=== PATIENT | female | born 1975 | race Two or more races ===

== ENCOUNTER 2023-02-18 12:53 | Outpatient (AMB) | payer MEDICAID, SELFPAY ==
--- NOTE | 2023-02-18 13:04 | MHC.OFFVIS ---
Intake Vital Signs 02/18/23 13:06 Height 4 ft 11 in Weight 119 lb 14.903 oz BMI 24.2 BP 90/66 Blood Pressure Location Lt brachial Position Sitting Pulse 99 Intake Visit Reasons: STAT NPV/Chest Pain/Hoffman Severo Intake Note: NPV w/ EKG Conformal Pad Former Required: No Accompanied by: Mother Allergies No Known Allergies Allergy (Verified 02/18/23 13:08) Medication List - Last Reconciled 02/18/23 by Jose Vora MD albuterol sulfate 90 mcg/actuation (Ventolin HFA) 2 puffs inhalation Q4H PRN buspirone 15 mg PO BID dtinjniwdp-muiecyjzmqrcz-ijww 50-325-40 mg 1 tab PO Q4H cetirizine 10 mg PO QAM cyclobenzaprine 10 mg PO DAILY PRN fluoxetine mg PO fluticasone propion-salmeterol 115-21 mcg/actuation (Advair HFA) 2 puffs inhalation gabapentin 600 mg PO TID levothyroxine 25 mcg PO QAM meloxicam 7.5 mg PO DAILY ondansetron 4 mg PO Q8H PRN psyllium husk (aspartame) 3 gram/5.8 gram (Reguloid (aspartame)) ea PO QAM quetiapine 800 mg PO BEDTIME trazodone 100 mg PO BEDTIME HPI HPI Comments History of Present Illness Details Cristel is here for consultation regarding chest pain. She states that she is slow in [place] but has moved to the local area. Comes here with her family. Multiple comorbidities including bipolar disorder, asthma, constipation, GERD, migraine headache among others. She also has history of cocaine use in the last time was few months back. She states she gets pain in the epigastric/lower chest area on the left side. Off and on. No specific provoking or relieving factors. In the PCP note, there is also mention of chest discomfort radiating to left arm. Unclear if it is related to cocaine as patient can not say. Otherwise, no documented coronary disease. However, patient states that she was in [facility] in [place] apparently she was told that she had 'clogged arteries' supplying her belly. Not sure what she means. We need to get records. [facility] Medical History GI bleed Bipolar 1 disorder Hypothyroid Cocaine abuse Smoking Surgical History (Updated 02/18/23 @ 13:12 by Luana Elkins) Hx of tubal ligation Hx of cholecystectomy Family History (Updated 02/18/23 @ 13:13 by Luana Elkins) Maternal Grandmother Heart problem Mother HTN (hypertension) Heart problem Father Heart problem Social History (Updated 02/18/23 @ 13:14 by Luana Elkins) Alcohol intake: current Alcohol intake frequency: holidays/special occasions only Patient Tobacco Use Status: Current everyday Tobacco user Tobacco use type: Cigarette Cigarettes Per Day: 10 Review of Systems Const Denies chills, Denies daytime sleepiness, Denies fatigue, Denies fever(s), Denies frequent falls, Denies night sweats, Denies snoring, Denies weakness, Denies weight gain and Denies weight loss Eyes Denies loss of vision ENT Denies dizziness and Denies hearing loss Card Denies chest pain, Denies chest pain with activity, Denies syncope, Denies rapid heart rate, Denies edema, Denies claudication, Denies leg edema, Denies lightheadedness, Denies palpitations, Denies dyspnea, Denies dyspnea on exertion and Denies orthopnea Resp Denies cough, Denies excessive phlegm production, Denies dyspnea, Denies dyspnea on exertion, Denies snoring and Denies wheezing GI Denies abdominal pain, Denies hematochezia, Denies change in bowel habits, Denies change in stool character, Denies heartburn, Denies nausea and Denies vomiting Denies hematuria, Denies urinary frequency and Denies dysuria Musc Denies arthralgias, Denies muscle weakness, Denies numbness and Denies tingling Skin/Breast Denies nail changes and Denies rash Neuro Denies Abnormal speech present, Denies dizziness, Denies syncope, Denies frequent falls, Denies loss of vision, Denies memory loss, Denies numbness, Denies tingling and Denies weakness Psych Denies depression and Denies memory loss Endo Denies fatigue and Denies palpitations Aller/Immun Denies wheezing Physical Exam Vital Signs: Last Vital Signs Pulse 99 02/18/23 13:06 BP 90/66 02/18/23 13:06 BMI result Body Mass Index 24.2 Const General: comfortable and no acute distress Orientation/consciousness: patient oriented x3 HEENT Other: Unremarkable Head: Yes normal to inspection Neck Neck: Yes normal visual inspection Chest Chest palpation & inspection: normal inspection of the chest Resp Auscultation: clear to auscultation bilaterally Cardio Palpation: normal PMI Heart sounds: S1 normal heart sound present, S2 normal heart sound present, no gallops, no murmurs and no rubs GI Palpation (GI): Soft to palpation Back/Spine/Pelvis Other: unremarkable Skin General skin exam: no rashes or lesions noted Neuro General: patient oriented x3 Speech: No Abnormal speech present Extrem General: Yes normal to inspection Psych Mental Status: mental status grossly normal Assessment & Plan Assessment & Plan (1) Precordial chest pain: Code(s): R07.2 - Precordial pain (2) Smoking: Code(s): F17.200 - Nicotine dependence, unspecified, uncomplicated (3) Cocaine abuse: Code(s): F14.10 - Cocaine abuse, uncomplicated Plan Atypical sounding symptoms but she has numerous factors including long history of smoking as well as history of cocaine use. Will obtain an echocardiogram and exercise stress perfusion myocardial imaging. Will also request records from [place]- signed release. Plan discussed with patient as well as family. Advised her to quit smoking but she states she cannot do so as that is what calms her mind apparently. Hence, may not quit. Absence from cocaine. We can get the testing done and then see her back. Orders: Orders CA echo transthoracic complete Today R07.2 - Precordial pain NM cardiolite stress test Today R07.2 - Precordial pain CA stress test Today R07.2 - Precordial pain Coding Level of Care Code New Pt Level 4 (35557) Diagnoses Precordial chest pain R07.2 Smoking F17.200 Cocaine abuse F14.10
[2023-02-18 13:06] VITALS: BP 90/66; PULSE 99; BMI 24.2
== END 2023-02-18 13:30 | disposition home or self-care (01) ==
PROVIDERS: PCP Student in an Organized Health Care Education/Training Program; Referring Provider Student in an Organized Health Care Education/Training Program; Visit Provider Internal Medicine
DX: R07.2 Precordial pain (principal); F17.200 Nicotine dependence, unspecified, uncomplicated; F14.10 Cocaine abuse, uncomplicated
CPT/HCPCS: 99204

== ENCOUNTER → 2023-02-18 12:53 | Outpatient (BNVA) | payer MEDICAID, SELFPAY | PROVIDERS: PCP Student in an Organized Health Care Education/Training Program; Referring Provider Student in an Organized Health Care Education/Training Program; Visit Provider Internal Medicine | DX: R07.2 Precordial pain (principal); F14.10 Cocaine abuse, uncomplicated; F17.210 Nicotine dependence, cigarettes, uncomplicated | CPT/HCPCS: 99202 ==

== ENCOUNTER 2023-02-24 14:21 | Outpatient (REF) | payer MEDICAID, SELFPAY ==
[2023-02-24 17:07] LABS: Alanine Aminotransferase 9 U/L (0-31); Albumin Level 4.5 g/dL (3.5-5.0); Alkaline Phosphatase 128 U/L (39-117); Anion Gap 12 (12-20); Aspartate Amino Transferase 14 U/L (5-31); Bilirubin Total 0.2 mg/dL (0.0-1.0); Blood Urea Nitrogen 15 mg/dL (9-16); Calcium 9.8 mg/dL (8.4-10.2); Carbon Dioxide 25 mmol/L (22-29); Chloride 107 mmol/L (96-108); Estimated Glomerular Filt Rate > 60; Gamma Glutamyl Transpeptidase 49 U/L (7-33); Glucose Random 89 mg/dL (60-115); Potassium 4.4 mmol/L (3.3-5.1); Sodium 140 mmol/L (135-145); Total Protein 7.4 g/dL (6.5-8.0)
[2023-02-24 17:17] LABS: TSH reflex Free T4 0.62 uIU/mL (0.32-4.0)
[2023-02-24 17:30] LABS: Folate 8.1 ng/mL (> or = 4.0); Vitamin B12 522 pg/mL (200-900)
[2023-02-24 17:48] LABS: Appearance Urine Clear; Color Urine Yellow; Glucose Urine UA Negative (Negative); Leukocyte Esterase Urine Negative (Negative); Nitrite Urine Negative (Negative); UMIC TRIGGER UA YES; Urine Blood Trace (Negative); Urine Ketones Negative (Negative); Urine Protein Negative (Neg-Trace)
[2023-02-24 17:51] LABS: Bacteria Urine Trace (None Seen); Hyaline Casts Urine 0-2 /LPF (0-2); RBC Urine 0-2 /HPF (0-2); Squamous Epithelial Cell Urine 0-2 /HPF (0-2); WBC Urine 0-5 /HPF (0-5)
[2023-02-24 18:19] LABS: Creatinine Urine 60.96 mg/dL; Microalbumin Urine < 5.0 mg/L
[2023-02-24 22:02] LABS: Amphetamine Screen Urine Not Detected (Not Detect); Barbiturates, Urine Not Detected (Not Detect); Benzodiazepines Screen Urine Not Detected (Not Detect); Cannabinoid Screen Urine Not Detected (Not Detect); Cocaine Screen Urine POSITIVE (Not Detect); Fentanyl, urine Not Detected (Not Detect); Opiate Screen Urine Not Detected (Not Detect); Phencyclidine Screen Urine Not Detected (Not Detect)
[2023-02-25 04:55] LABS: CT PCR NOT DETECTED (Not Detect.); NG PCR NOT DETECTED (Not Detect.)
== END 2023-02-24 14:22 | disposition home or self-care (01) ==
LOC: HO.HHCL 14:21
PROVIDERS: Visit Provider Student in an Organized Health Care Education/Training Program
DX: Z00.00 Encounter for general adult medical examination without abnormal findings (principal); R74.8 Abnormal levels of other serum enzymes; F14.90 Cocaine use, unspecified, uncomplicated; Z20.2 Contact with and (suspected) exposure to infections with a predominantly sexual mode of transmission
CPT/HCPCS: 0353U; 80053; 80307; 81001; 82570; 82607; 82746; 82977; 84443

== ENCOUNTER 2023-02-25 09:27 | Outpatient (REF) | payer MEDICAID, SELFPAY ==
--- NOTE | ~2023-02-25 | XR_ITS ---
EXAMINATION: XR KNEE, RIGHT XR TIBIA AND FIBULA, RIGHT CLINICAL INFORMATION: Pain. COMPARISON: None available. TECHNIQUE: AP, lateral and tunnel views of the right knee were obtained. AP and lateral views of the right tibia and fibula were obtained. FINDINGS: Bony alignment and mineralization are normal. The lateral, medial and patellofemoral joint space compartments of the right knee are well-maintained. No right knee fracture, dislocation or joint effusion is seen. An intramedullary alexandr is seen applied to the right tibia, with intact superior fixator screws. No hardware failure or loosening is seen. There are old, healed distal tibial and fibular fractures, with bony remodeling. There is no acute fracture or dislocation. The ankle mortise is intact. XR/XR knee RT 3V IMPRESSION: Healed posttraumatic and postoperative changes are seen of the right tibia and fibula, as detailed. No fracture or dislocation is seen. There is no right knee joint effusion. The joint spaces of the right knee and ankle are well-maintained.
--- NOTE | ~2023-02-25 | XR_ITS ---
EXAMINATION: XR KNEE, RIGHT XR TIBIA AND FIBULA, RIGHT CLINICAL INFORMATION: Pain. COMPARISON: None available. TECHNIQUE: AP, lateral and tunnel views of the right knee were obtained. AP and lateral views of the right tibia and fibula were obtained. FINDINGS: Bony alignment and mineralization are normal. The lateral, medial and patellofemoral joint space compartments of the right knee are well-maintained. No right knee fracture, dislocation or joint effusion is seen. An intramedullary alexandr is seen applied to the right tibia, with intact superior fixator screws. No hardware failure or loosening is seen. There are old, healed distal tibial and fibular fractures, with bony remodeling. There is no acute fracture or dislocation. The ankle mortise is intact. XR/XR tibia fibula RT 2V IMPRESSION: Healed posttraumatic and postoperative changes are seen of the right tibia and fibula, as detailed. No fracture or dislocation is seen. There is no right knee joint effusion. The joint spaces of the right knee and ankle are well-maintained.
--- NOTE | ~2023-02-25 | XR_ITS ---
EXAMINATION: XR SACRUM AND COCCYX CLINICAL INFORMATION: Coccygeal pain. COMPARISON: None available. TECHNIQUE: 3 frontal and lateral views of the sacrum and coccyx were obtained. FINDINGS: There are no fractures. No bone, joint or soft tissue abnormality is demonstrated. XR/XR sacrum coccyx min 2V IMPRESSION: Unremarkable examination.
== END 2023-02-25 09:28 | disposition home or self-care (01) ==
LOC: HO.HHCX 09:27
PROVIDERS: Visit Provider Student in an Organized Health Care Education/Training Program
DX: M79.604 Pain in right leg (principal); M53.3 Sacrococcygeal disorders, not elsewhere classified
CPT/HCPCS: 72220; 73562; 73590

== ENCOUNTER 2023-04-02 16:11 | Outpatient (REF) | payer MEDICAID, SELFPAY ==
[2023-04-02 16:24] LABS: Appearance Urine Clear; Color Urine Yellow; Glucose Urine UA Negative (Negative); Leukocyte Esterase Urine Negative (Negative); Nitrite Urine Negative (Negative); Specific Gravity - Urine 1.015 (1.005-1.025); Urine Blood Negative (Negative); Urine Ketones Negative (Negative); Urine Protein Negative (Neg-Trace)
[2023-04-03 03:43] LABS: CT PCR NOT DETECTED (Not Detect.); NG PCR NOT DETECTED (Not Detect.)
[2023-04-03 11:57] LABS: BV Int Neg Control Negative (Negative); BV Int Pos Control Positive (Positive)
== END 2023-04-02 16:12 | disposition home or self-care (01) ==
LOC: HO.HHCLNP 16:11
PROVIDERS: Visit Provider Student in an Organized Health Care Education/Training Program
DX: R30.0 Dysuria (principal)
CPT/HCPCS: 0353U; 81003; 87480; 87510; 87660

== ENCOUNTER 2023-04-05 | Outpatient (REF) | payer MEDICAID, SELFPAY ==
[2023-04-07 20:37] LABS: HPV mRNA E6/E7 rflx Not Detected (Not Detected)
== END 2023-04-05 00:01 | disposition home or self-care (01) ==
LOC: HO.HHCLNP
PROVIDERS: Visit Provider Advanced Practice Midwife
DX: Z12.4 Encounter for screening for malignant neoplasm of cervix (principal); Z11.51 Encounter for screening for human papillomavirus (HPV)
CPT/HCPCS: 87624; 88142

== ENCOUNTER 2023-04-07 10:20 | Outpatient (AMB) | payer MEDICAID, SELFPAY ==
[2023-04-07 10:35] VITALS: BP 96/58; PULSE 96; O2SAT 99; BMI 24.0
--- NOTE | 2023-04-07 10:35 | A.OFFVIS_ITS ---
Intake Vital Signs 04/07/23 10:35 Height 4 ft 11 in Weight 119 lb 0.794 oz BMI 24.0 BP 96/58 L Blood Pressure Location Lt brachial Position Sitting Pulse 96 Pulse Source Doppler Pulse Oximetry (%) 99 Oxygen Delivery Method Room Air Intake Visit Reasons: copd Allergies No Known Allergies Allergy (Verified 04/07/23 10:40) HPI copd HPI Details 47-year-old lady, active 20 pack-year smoker with underlying history of asthma referred for pulmonary evaluation. Patient states that she has been using Advair 115 and albuterol MDI with suboptimal control of her symptoms. She denies recent pulmonary function or allergy testing. Patient does have family history of asthma in her mother. She does complain of multiple environmental allergies. PFS Medical History GI bleed Bipolar 1 disorder Hypothyroid Cocaine abuse Smoking Surgical History (Updated 02/18/23 @ 13:12 by Luana Elkins) Hx of tubal ligation Hx of cholecystectomy Family History (Updated 02/18/23 @ 13:13 by Luana Elkins) Maternal Grandmother Heart problem Mother HTN (hypertension) Heart problem Father Heart problem Social History (Updated 04/07/23 @ 10:41 by Drea Juares [facility]) Alcohol intake: current Alcohol intake frequency: holidays/special occasions only Patient Tobacco Use Status: Current everyday Tobacco user Tobacco use type: Cigarette Cigarettes Per Day: 10 Years Smoked: 20+ Review of Systems Const Denies daytime sleepiness, Denies excessive sweating, Denies fatigue, Denies fever(s), Denies lethargy, Denies malaise, Denies night sweats, Denies snoring and Denies weight loss Eyes Denies blurry vision and Denies itchy eyes ENT Denies nasal congestion, Denies post nasal drip, Denies sinus pain, Denies sinus pressure and Denies other ( Thrush) Card Denies chest pain, Denies pedal edema, Denies dyspnea, Denies orthopnea and Denies paroxysmal nocturnal dyspnea Resp Denies cough, Denies hemoptysis, Denies excessive phlegm production, Denies dyspnea, Denies snoring and Denies wheezing GI Denies abdominal pain and Denies heartburn Musc Denies myalgias, Denies arthralgias and Denies joint swelling Skin/Breast Denies rash Neuro Denies memory loss and Denies seizure-like activity Psych Denies abnormal sleep pattern, Denies anxiety and Denies memory loss Endo Denies excessive sweating, Denies fatigue and Denies heat intolerance Ian/Lymph Denies easy bruising Aller/Immun Denies itchy eyes, Denies seasonal rhinorrhea and Denies wheezing Physical Exam Vital Signs: Last Vital Signs Pulse 96 04/07/23 10:35 BP 96/58 L 04/07/23 10:35 Pulse Ox 99 04/07/23 10:35 Oxygen Delivery Method Room Air 04/07/23 10:35 BMI result Body Mass Index 24.0 Const General: no acute distress and alert Nutritional Appearance: not obese Orientation/consciousness: Other orientation findings ( oriented) HEENT Head: Yes atraumatic Eyes General: appearance normal, both eyes and all related structures Sclerae: sclerae normal EOM: EOMs intact bilaterally Neck Neck: Yes supple Lymphatic: no lymphadenopathy noted Resp Effort & Inspection: normal respiratory effort and no use of accessory muscles Auscultation: clear to auscultation bilaterally Cardio Rate: regular rate Rhythm: regular rhythm Heart sounds: no gallops, no murmurs and no rubs Skin General skin exam: other ( warm) Extrem General: No clubbing, No cyanosis and No edema Assessment & Plan Assessment & Plan (1) Asthma: Code(s): J45.909 - Unspecified asthma, uncomplicated Plan: Underlying asthma of unclear severity suboptimally controlled on Advair, will switch to Trelegy and obtain full PFT. (2) Environmental allergies: Code(s): Z91.09 - Other allergy status, other than to drugs and biological substances Plan: Will obtain IgE level, CBC with differential, and RAST panel for further evaluation. Orders: Orders PFT pulmonary function test Today J45.909 - Unspecified asthma, uncomplicated Complete Blood Count Auto Diff Today Z91.09 - Other allergy status, other than to drugs and biological substances Rast Allergen Today Z91.09 - Other allergy status, other than to drugs and biological substances Medications: New uachmljkpca-tgzzevpkh-iqajudlk 200-62.5-25 mcg (Trelegy Ellipta) 1 inh inhalation DAILY 1 ea 6RF 30 days J45.909 - Unspecified asthma, uncomplicated Coding Level of Care Code New Pt Level 4 (67660) Diagnoses Asthma J45.909 Environmental allergies Z91.09
== END 2023-04-07 10:56 | disposition home or self-care (01) ==
PROVIDERS: PCP Student in an Organized Health Care Education/Training Program; Referring Provider Student in an Organized Health Care Education/Training Program; Visit Provider Internal Medicine Pulmonary Disease
DX: J45.909 Unspecified asthma, uncomplicated (principal); Z91.09 Other allergy status, other than to drugs and biological substances
CPT/HCPCS: 99204

== ENCOUNTER → 2023-04-07 10:20 | Outpatient (BNVA) | payer MEDICAID, SELFPAY | PROVIDERS: PCP Student in an Organized Health Care Education/Training Program; Visit Provider Internal Medicine Pulmonary Disease ==

== ENCOUNTER 2024-12-27 12:14 | Outpatient (REF) | payer MEDICAID, SELFPAY ==
--- OUTSIDE RECORDS SUMMARY | 2024-12-27 13:14 | XMS_ITS | Encounter Summary ---
Author Organization [employer] Address [address] [place] [address] [address] [place] [address] Care Team Providers Care Ceramic Tile Setter Name Role Phone Airam Romero MD Primary Care Pro vider Fred Dotson Unavailable Unavailable Reason for Visit * Reason Onset Date Comments Call Back Request 04/26/2023 Encounter Details Date Type Department Care Team ([facility] Contact Info) Description 04/26/2023 Telephone [facility] MEDICINE [address], [place] [id number] Airam Romero MD [address] [place] [address] Call Back Request Social History Tobacco Use Types Packs/Day Years Used Date Smoking Tobacco: Every Day Cigarettes 0.5 20 Passive Smoke Exposure: Current Smokeless Tobacco: Never Comments:Started tobacco smo shanon 16 y of age until now ---1/2 PQT A day -smoking for 31 years --calc PQT a year 15.5 Alcohol Use Standard Drinks/Week Comments Not Currently 0 (1 standard drink = 0.6 oz pur e alcohol) Depression Answer Date Recorded Patient Health Questionnaire-9 Score 10 04/15/2023 Patient Health Questionnaire-9 Score 10 04/15/2023 Last PHQ-9: Questionnaire Data Not on file 1 06/15/2022 Housing Stability Answer Date Recorded What is your housing situation today? I have carlos fernando 03/29/[address] you li ve. Do you have problems with any of the following? None of the above 03/29/2023 Food Insecurity Answer Date Recorded Within the past 12 months, y ou worried that your food would run out before you got money to buy more: Never True 03/29/2023 Within the past 12 months,th e food you bought just didn't last and you didn't have enough money to get more: Never True Transportation Answer Date Recorded In the past 12 months, has l ack of transportation kept you from medical appts, meetings, work or from getting things needed for daily living? No 03/29/2023 Utilities Answer Date Recorded In the past 12 months, has t he electric, gas, oil or water company threatened to shut off services in your home? No 03/29/2023 Depression Answer Date Recorded Patient Health Questionnaire-2 Score 6 04/15/2023 Comments No Sex and Gender Information Value Date Recorded Sex Assigned at Female 10/19/2022 1:50 PM EDT Legal Sex Female 1:41 PM EDT Gender Identity Female 10/19/2022 1:50 PM EDT Sexual Orientation Straight 12/02/2022 9: 43 AM EDT documented as of this encounter Miscellaneous Notes * Telephone Encounter - Katherine Smith - 04/26/2023 2:20 PM EST Tc from [facility] requesting more clarification on DX for MRI to pelvis. Pt is scheduled an appointment for tomorrow (04/27) Please contact [facility] at [phone] documented in this encounter Plan of Treatment Upcoming Encounters Date Type Department Care Team (Late st Contact Info) Description 02/26/2025 1:15 PM EDT Office Visit [facility] MEDICINE [address] [place] [id number] Airam Romero MD [address] [place] [address] documented as of this encounter Goals Goal Patient Goal Type Associated Problems Recent Progress Patient-Stated? Author Patient will adhere to medication regimen General No Rosy Nunes Keep your medical appointments Lifestyle No Rosy Nunes documented as of this encounter Visit Diagnoses Not on filedocumented in this encounter Additional Health Concerns Assessment Noted Time PHQ-9 Depression Total Score: 10 023 3:57 PM EDT documented as of this encounter Care Teams Ceramic Tile Setter Relationship Specialty Start Date End Date Airam Romero MD [address] [place] [address] PCP - General Internal Medicine 12/16/22 Fred Dotson FNP [address] [place] [address] Nurse Practitioner Family Medicine 05/10/23 documented as of this encounter
--- OUTSIDE RECORDS SUMMARY | 2024-12-27 13:14 | XMS_ITS | Patient Health Record ---
Author Organization [facility] [place] Address [address] [place] [address] Care Team Providers Care Flea Market Seller Name Role Phone SARAH ORTIZ Unavailable [phone] Reason For Referral No Information Medications Medication SIG (Take, Route, Frequency, Duration) Notes Start Date End Date Status Omeprazole 40 MG 1 capsule Orally Onc e a day; Duration: 30 day(s) 02/07/2018 Active OneTouch Verio w/Device as it comes In V itro DIRECTED; Duration: 90 days Active oxyCODONE-Acetaminophen 10-325 MG 1 tablet as needed Orally every 6 hrs Not-Taking Levothyroxine Sodium 50 MCG 1 tablet on an empty stomach in the morning Orally Once a day; Duration: 30 day(s) 01/10/2018 Active Gabapentin 600 MG 1 tablet Orally Once a day; Duration: 90 days Active ALPRAZolam 2 MG 1 tablet Orally Twic e a day Not-Taking QUEtiapine Fumarate 400 MG Oral; Duration: 030 Active OLANZapine 10 MG Oral; Duration: 030 Active Medrol 4 MG 1 tab Orally DAILY; Duration: 30 day(s) Active metFORMIN HCl ER 500 MG 1 tab Orally BID ; Duration: 90 days Active TRUEplus Lancets 28G - ; Duration: 90 days Active glipiZIDE XL 10 MG 1 tablet Orally Once a day; Duration: 90 days Active Social History Tobacco Use: Social History Observation Description Date Details (start date - stop date) Current Smoker NA - NA Tobacco Use/Smoking Question Answer Notes Are you a current smoker How often do you smoke cigarettes? every day How many cigarettes a day do you smoke? 6-10 How soon after you wake up do you smoke your fir st cigarette? 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) Active confirmed Problem Mixed hyperlipidemia (722755040) Mixed hyperlipidemia (E78.2) Active confirmed Problem Tobacco user (998804766) Nicotine dependence, cigarettes, uncomplicated (F17.210) Active confirmed Problem Insomnia (109809084) Insomnia, unspecified (G47.00) Active confirmed Problem Insomnia (167419184) Insomnia due to medical condition (G47.01) Active confirmed Problem Essential hypertension (36342763) Essential (primary) hypertension (I10) Active confirmed Problem Acute upper respiratory infection (19190116) Acute upper respiratory infection, unspecified (J06.9) Active confirmed Problem Acute severe exacerbation of mild persistent asthma (disorder) (753604937) Mild persistent asthma with status asthmaticus (J45.32) Active confirmed Problem Cough (97056313) Cough (R05) Active confirmed Problem Adult health examination (861555647) Encounter for general adult medical examination without abnormal findings (Z00.00) Active confirmed Plan Of Treatment Pending Test Test Name Order Date Chest X-ray PA and lateral 04/05/2018 Chest X-ray PA and lateral 02/07/2018 MAMMOGRAM, SCREENING 12/09/2017 Comp. Metabolic Panel (14) 12/28/2017 TSH+Free T4 12/28/2017 Lipid Panel With LDL/HDL Ratio 8 UA/M w/rflx Culture, Routine 12/28/2017 CBC With Differential/Platelet 8 Hemoglobin A1c 12/28/2017 A IM 1GM ROCEPHIN 04/05/2018 A-DEXAMETHASONE 10mg/1ml 04/05/2018 INJECTION DEXAMETHOSONE SODIUM PHOSPHATE 01/10/2018 A- INJECTION KETOROLAC TROMETHAMINE PER 15 04/05/2018 A- INJECTION KETOROLAC TROMETHAMINE PER 15 01/10/2018 Future Test Test Name Order Date Lipid Panel With LDL/HDL Ratio 9 TSH+Free T4 07/13/2018 Insurance Providers Payer Name Payer Address Payer Phone Subscriber Number Group Number Insured Name Patient Relationship to Insured Coverage Start Date Coverage End Date [facility] [address] [address] [place] [address] [phone] [id number] Cristel Lepe Self - patient is the insured Medical (General) History Medical History History ICD Code diabetes, type II asthma arthritis insonmia Surgical History Surgery Date(Month/Year) Galbladder tonsillectomy tubal ligation 2007
--- OUTSIDE RECORDS SUMMARY | 2024-12-27 13:15 | XMS_ITS | Patient Health Record ---
Author Organization [facility] Billing Info Address [address] [place], [place] [address] [address] Care Team Providers Care Cut Out Worker Name Role Phone DR CHRISTIANO AUGUSTINE JR Primary Care Provider Unavailable Reason For Referral No Information Medications Medication SIG (Take, Route, Fr equency, Duration) Notes Start Date End Date Status Rozerem 8 MG 1 tablet at bedtime as needed Orally Once a day Active Gabapentin 600 MG 1 tablet Orally Thre e times a day for 30 day(s) Active Seroquel 400 MG 1 tablet at bedtime Orally Once a day for 30 day(s) Active Fioricet 50-300-40 MG 1 capsule as neede d Orally every 4 hrs Active Tramadol HCl 50 MG 1 tablet as needed O rally every 6 hrs Active Problems Problem Type SNOMED Code ICD Code Onset Dates Problem Status W/U Status Risk Notes Problem Venereal disease screening (435897146) Screening for STD (sexually transmitted disease) (V74.5) Active confirmed Problem Routine gynecologic examination done (98634633484419) Visit for routine helper [employer] exam (V72.31) Active confirmed Plan Of Treatment Pending Test Test Name Order Date RPR ([id number]) 08/08/2013 HBsAg Screen ([id number]) 08/08/2013 HIV 1/0/2 ANTIBODY W/ REFLEX TO NUCLEIC ACID TESTING([id number]) 08/08/2013 HCV Ab w/Rflx to RIBA ([id number]) 014 HSV 1 and 2-Specific Ab, IgG ([id number]) 08/08/2013 HSV 1 and 2 IgM Abs, Indirect ([id number]) 08/08/2013 Insurance Providers Payer Name Payer Address Payer Phone Subscriber Number Group Number Insured Name Patient Relationship to Insured Coverage Start Date Coverage End Date [facility] [employer] [address] [place], [place] [id number], [place] [id number] Mango Cristel Self - patient is the insured 5 [phone] Medical (General) History Medical History History ICD Code ASTHMA THYROID DYSFUNCTION DEPRESSION Surgical History Surgery Date(Month/Year) cholecystectomy tubal ligation
[2024-12-27 13:48] LABS: MANUAL DIFF FLAG NO
[2024-12-27 13:55] LABS: Hematocrit 37.8 % (37.0-47.0); Hemoglobin 12.2 g/dl (12.0-16.0); Imm Gran Abs Auto 0.03 X10*3/uL (0.00-0.03); Imm Gran Pct Auto 0.4 % (0.0-0.4); Lymphocytes Absolute Auto 2.0 X10*3/uL (1.2-4.9); Mean Corpuscular HGB Conc 32.3 g/dl (31.0-35.0); Mean Corpuscular Hemoglobin 31.8 pg (27.0-33.0); Mean Corpuscular Volume 98.4 fL (80.0-98.0); NRBC Abs Auto 0.000 X10*3/uL (0.0-0.012); NRBC Pct Auto 0.0 /100WBC (0.0-0.2); Platelet Count 279 X10*3/uL (160-400); Red Blood Count 3.84 X10*6/uL (4.20-5.50); White Blood Count 7.6 X10*3/uL (4.8-10.8)
[2024-12-27 14:47] LABS: Anion Gap 13 (12-20); Blood Urea Nitrogen 18 mg/dL (9-16); Calcium 9.5 mg/dL (8.4-10.2); Carbon Dioxide 25 mmol/L (22-29); Chloride 108 mmol/L (96-108); Estimated Glomerular Filt Rate > 60; Ferritin 39 ng/mL (10-250); Iron 25 mcg/dL (30-160); Magnesium 2.0 mg/dL (1.6-2.6); Percent Iron Saturation 10 % (15-50); Potassium 4.0 mmol/L (3.3-5.1); Sodium 142 mmol/L (135-145); Total Iron Binding Capacity 260 mcg/dL (228-428); Unsaturated Iron Binding 235 ug/dL
== END 2024-12-27 12:15 | disposition home or self-care (01) ==
LOC: HO.HHCL 12:14
PROVIDERS: PCP Student in an Organized Health Care Education/Training Program; Visit Provider Nurse Practitioner
DX: R20.0 Anesthesia of skin (principal); R20.2 Paresthesia of skin
CPT/HCPCS: 36415; 80048; 82728; 83540; 83735; 85025

== ENCOUNTER 2025-05-29 13:03 | Outpatient (REF) | payer MEDICAID, SELFPAY ==
--- OUTSIDE RECORDS SUMMARY | 2024-08-26 04:00 | XMS_ITS ---
Author Organization [facility] Primary Care Address [address] [place] [address] Care Team Providers Care Seam Checker Name Role Phone Not Selected, Physician Unavailable Unavaila ble Migration, Provider Unavailable Unavailable REASON FOR VISIT [facility] [place] Encounter Location Date Provider Diagnosis [facility] Primary Care [address] [place] [address] 08/26/2024 Provider Migration Plan Of Treatment Medication Medication Name Sig Start Date Stop Date Notes Methocarbamol 750 mg tablet 09/25/2019 03/13/20 20 Ketorolac Tromethamine 10 MG Tablet Oral 05/23/2018 04/12/2019 trazodone 50 mg tablet 10/10/2018 05/01/2019 *R eorder from [facility] for eRx and Interaction Alerts* Proventil HFA 90 mcg/actuati on HFA aerosol inhaler 04/12/2019 03/13/2020 *Reorder fro [facility] for eRx and Interaction Alerts* ketorolac 10 mg tablet 10/10/2018 04/12/2019 *R eorder from [facility] for eRx and Interaction Alerts* tizanidine 4 mg tablet 10/10/2018 02/28/2019 *R eorder from [facility] for eRx and Interaction Alerts* tizanidine 4 mg capsule 05/01/2019 05/18/2019 * Reorder from [facility] for eRx and Interaction Alerts* OLANZapine 10 mg tablet 10/10/2018 OLANZAPINE 5MG TABLETS 11/15/2017 01/26/2019 *R eorder from [facility] for eRx and Interaction Alerts* Tamiflu 75 mg capsule 05/01/2019 05/18/2019 BUTALBITAL/ACETAMINOPHEN/CAF F TABS 03/30/2018 04/11/2019 *Reorder from [facility] for eRx and Interaction Alerts* Cyclobenzaprine HCl 10 MG Tablet Oral 02/28/2019 03/13/2020 ADVAIR DISKUS 250/50MCG (YELLOW) 60 01/26/2019 03/13/2020 *Reorder from [facility] for eRx and Interaction Alerts* CYCLOBENZAPRINE 10MG TABLETS 09/25/2019 020 *[facility] Interaction [facility]* OMEPRAZOLE 20MG CAPSULES 10/10/2018 03/13/2020 *[facility] Interaction [facility]* Progress Notes * LUZMA ESPARZADOB: [birth year] (50 yo F)Acc No.[id number]:08/26/2024 Patient: LUZMA WYLIE :1975 A ge:49 Y S ex:Female Address:[facility] [address], [place], [place], [facility] * Refills Stop ketorolac tablet, 10 mg [...]
--- OUTSIDE RECORDS SUMMARY | 2024-08-27 04:00 | XMS_ITS ---
Author Organization [facility] Primary Care Address [address] [place] [address] Care Team Providers Care Candle Cutter Name Role Phone Not Selected, Physician Unavailable Unavaila ble Migration, Provider Unavailable Unavailable REASON FOR VISIT EMR-Frantz Medications Medication SIG (Take, Route, Frequency, Duration) Notes Start Date End Date Status Pain Reliever 500 mg tablet *Pick strength-form from [facility] for eRX* 05/01/2019 Active Gabapentin 600 mg tablet 04/12/2019 Active buspirone 15 mg tablet *Reorder from [facility] for eRx and Interaction Alerts* 09/25/2019 Active HYDROcodone-Acetaminoph en 5-325 mg tablet 03/27/2020 Active Diclofenac Sodium 75 mg tablet,delayed release (DR/EC) *Pick strength-form from [facility] for eRX* 09/25/2019 Active pantoprazole 40 mg tablet,delayed release (DR/EC) *Reorder from [facility] for eRx and Interaction Alerts* 03/13/2020 Active tizanidine 4 mg tablet *Reorder from [facility] for eRx and Interaction Alerts* 03/13/2020 Active butalbital-acetaminophe n-caff 50-325-40 mg capsule *Reorder from [facility] for eRx and Interaction Alerts* 01/26/2019 Active CYCLOBENZAPRINE 10MG TABLETS *Reorder from [facility] for eRx and Interaction Alerts* 06/04/2020 Active Claritin 10 mg tablet 09/26/2019 Active fluticasone propionate 50 mcg/actuation nasal spray,suspension *Reorder from [facility] for eRx and Interaction Alerts* 03/27/2020 Active Tylenol Extra Strength 500 mg tablet 05/01/2019 Active Suphedrine 30 mg tablet *Reorder from [facility] for eRx and Interaction Alerts* 03/27/2020 Active Topamax 25 mg tablet 04/12/2019 Active blood sugar diagnostic strip *Reorder from [facility] for eRx and Interaction Alerts* 05/01/2019 Active Azithromycin 250 mg tablet 04/01/2020 Active Augmentin 500-125 mg tablet 03/13/2020 Active SUMAtriptan Succinate 50 mg tablet 09/25/2019 Active OLANZapine 10 mg tablet 10/10/2018 Active blood-glucose meter misc *Reorder from [facility] for eRx and Interaction Alerts* 05/01/2019 Active PROzac 40 mg capsule 09/25/2019 Active Trazodone HCl 100 MG Tablet *Reorder from [facility] for eRx and Interaction Alerts* 09/25/2019 Active atorvastatin 10 mg tablet *Reorder from [facility] for eRx and Interaction Alerts* 01/26/2019 Active Lancets 30 gauge misc 05/01/2019 Active Sucralfate 1 gram tablet *Pick strength-form from [facility] for eRX* 03/13/2020 Active Mobic 7.5 mg tablet *Reorder fro [facility] for eRx and Interaction Alerts* 09/25/2019 Active Loratadine 10 mg tablet 03/13/2020 Active Famotidine 20 mg tablet 03/15/2020 Active BUSPIRONE 15MG TABLETS *Reorder from [facility] for eRx and Interaction Alerts* 06/04/2020 Active quetiapine 400 mg tablet *Reorder from [facility] for eRx and Interaction Alerts* 09/25/2019 Active Encounters Encounter Location Date Provider Diagnosis [facility] Primary Care Count includes the [facility] [place] [address] 08/27/2024 Provider Migration Plan Of Treatment No Information Progress Notes * LUZMA ESPARZADOB: [birth year] (50 yo F)Acc No.[id number]:08/27/2024 Patient: Haydee LUZMA HOOPER :1975 A ge:49 Y S ex:Female Address:[facility] [address], [place], [address] Subjective: * Chief Complaints: * E MR-Frantz * Medications: T akingTrazodone HCl 100 MG Tablet , Notes to Pharmacist: *Reorder from [facility] for eRx and Interaction Alerts*Claritin 10 mg tablet Diclofenac Sodium 75 mg tablet,delayed release (DR/EC) , Notes to Pharmacist: *Pick strength-form from [facility] for eRX*Gabapentin 600 mg tablet Pain Reliever 500 mg tablet , Notes to Pharmacist: *Pick strength-form from [facility] for eRX*buspirone 15 mg tablet , Notes to Pharmacist: *Reorder from [facility] for eRx and Interaction Alerts*Gabapentin 600 mg tablet OLANZapine 10 mg tablet SUMAtriptan Succinate 50 mg tablet Augmentin 500-125 mg tablet Azithromycin 250 mg tablet Diclofenac Sodium 75 mg tablet,delayed release (DR/EC) , Notes to Pharmacist: *Pick strength-form from [facility] for eRX*Diclofenac Sodium 75 mg tablet,delayed release (DR/EC) , Notes to Pharmacist: *Pick strength-form from [facility] for eRX*Famotidine 20 mg tablet Mobic 7.5 mg tablet , Notes to Pharmacist: *Reorder from [facility] for eRx and Interaction Alerts*Sucralfate 1 gram tablet , Notes to Pharmacist: *Pick strength-form from [facility] for eRX*SUMAtriptan Succinate 50 mg tablet Gabapentin 600 mg tablet Mobic 7.5 mg tablet , Notes to Pharmacist: *Reorder from [facility] for eRx and Interaction Alerts*Gabapentin 600 mg tablet OLANZapine 10 mg tablet PROzac 40 mg capsule fluticasone propionate 50 mcg/actuation nasal spray,suspension , Notes to Pharmacist: *Reorder from [facility] for eRx and Interaction Alerts*Diclofenac Sodium 75 mg tablet,delayed release (DR/EC) , Notes to Pharmacist: *Pick strength-form from [facility] for eRX*OLANZapine 10 mg tablet PROzac 40 mg capsule blood sugar diagnostic strip , Notes to Pharmacist: *Reorder from [facility] for eRx and Interaction Alerts*Trazodone HCl 100 MG Tablet , Notes to Pharmacist: *Reorder from [facility] for eRx and Interaction Alerts*BUSPIRONE 15MG TABLETS , Notes to Pharmacist: *Reorder from [facility] for eRx and Interaction Alerts*quetiapine 400 mg tablet , Notes to Pharmacist: *Reorder from [facility] for eRx and Interaction Alerts*tizanidine 4 mg tablet , Notes to Pharmacist: *Reorder from [facility] for eRx and Interaction Alerts*quetiapine 400 mg tablet , Notes to Pharmacist: *Reorder from [facility] for eRx and Interaction Alerts*quetiapine 400 mg tablet , Notes to Pharmacist: *Reorder from [facility] for eRx and Interaction Alerts*Trazodone HCl 100 MG Tablet , Notes to Pharmacist: *Reorder from [facility] for eRx and Interaction Alerts*pbltxzvsft-jepozbtaoemir-dcgo 50-325-40 mg capsule , Notes to Pharmacist: *Reorder from [facility] for eRx and Interaction Alerts*CYCLOBENZAPRINE 10MG TABLETS , Notes to Pharmacist: *Reorder from [facility] for eRx and Interaction Alerts*quetiapine 400 mg tablet , Notes to Pharmacist: *Reorder from [facility] for eRx and Interaction Alerts*pantoprazole 40 mg tablet,delayed release (DR/EC) , Notes to Pharmacist: *Reorder from [facility] for eRx and Interaction Alerts*quetiapine 400 mg tablet , Notes to Pharmacist: *Reorder from [facility] for eRx and Interaction Alerts*quetiapine 400 mg tablet , Notes to Pharmacist: *Reorder from [facility] for eRx and Interaction Alerts*Trazodone HCl 100 MG Tablet , Notes to Pharmacist: *Reorder from [facility] for eRx and Interaction Alerts*Diclofenac Sodium 75 mg tablet,delayed release (DR/EC) , Notes to Pharmacist: *Pick strength-form from [facility] for eRX*Loratadine 10 mg tablet Mobic 7.5 mg tablet , Notes to Pharmacist: *Reorder from [facility] for eRx and Interaction Alerts*Lancets 30 gauge misc atorvastatin 10 mg tablet , Notes to Pharmacist: *Reorder from [facility] for eRx and Interaction Alerts*atorvastatin 10 mg tablet , Notes to Pharmacist: *Reorder from [facility] for eRx and Interaction Alerts*Gabapentin 600 mg tablet Tylenol Extra Strength 500 mg tablet Claritin 10 mg tablet Gabapentin 600 mg tablet Mobic 7.5 mg tablet , Notes to Pharmacist: *Reorder from [facility] for eRx and Interaction Alerts*blood-glucose meter misc , Notes to Pharmacist: *Reorder from [facility] for eRx and Interaction Alerts*OLANZapine 10 mg tablet Suphedrine 30 mg tablet , Notes to Pharmacist: *Reorder from [facility] for eRx and Interaction Alerts*Topamax 25 mg tablet Topamax 25 mg tablet HYDROcodone-Acetaminophen 5-325 mg tablet OLANZapine 10 mg tablet Topamax 25 mg tablet Taking Trazodone HCl 100 MG Tablet , Notes to Pharmacist: *Reorder from [facility] for eRx and Interaction Alerts*Taking Claritin 10 mg tablet Taking Diclofenac Sodium 75 mg tablet,delayed release (DR/EC) , Notes to Pharmacist: *Pick strength-form from [facility] for eRX*Taking Gabapentin 600 mg tablet Taking Pain Reliever 500 mg tablet , Notes to Pharmacist: *Pick strength-form from [facility] for eRX*Taking buspirone 15 mg tablet , Notes to Pharmacist: *Reorder from [facility] for eRx and Interaction Alerts*Taking Gabapentin 600 mg tablet Taking OLANZapine 10 mg tablet Taking SUMAtriptan Succinate 50 mg tablet Taking Augmentin 500-125 mg tablet Taking Azithromycin 250 mg tablet Taking Diclofenac Sodium 75 mg tablet,delayed release (DR/EC) , Notes to Pharmacist: *Pick strength-form from [facility] for eRX*Taking Diclofenac Sodium 75 mg tablet,delayed release (DR/EC) , Notes to Pharmacist: *Pick strength-form from [facility] for eRX*Taking Famotidine 20 mg tablet Taking Mobic 7.5 mg tablet , Notes to Pharmacist: *Reorder from [facility] for eRx and Interaction Alerts*Taking Sucralfate 1 gram tablet , Notes to Pharmacist: *Pick strength-form from [facility] for eRX*Taking SUMAtriptan Succinate 50 mg tablet Taking Gabapentin 600 mg tablet Taking Mobic 7.5 mg tablet , Notes to Pharmacist: *Reorder from [facility] for eRx and Interaction Alerts*Taking Gabapentin 600 mg tablet Taking OLANZapine 10 mg tablet Taking PROzac 40 mg capsule Taking fluticasone propionate 50 mcg/actuation nasal spray,suspension , Notes to Pharmacist: *Reorder from [facility] for eRx and Interaction Alerts*Taking Diclofenac Sodium 75 mg tablet,delayed release (DR/EC) , Notes to Pharmacist: *Pick strength-form from [facility] for eRX*Taking OLANZapine 10 mg tablet Taking PROzac 40 mg capsule Taking blood sugar diagnostic strip , Notes to Pharmacist: *Reorder from [facility] for eRx and Interaction Alerts*Taking Trazodone HCl 100 MG Tablet , Notes to Pharmacist: *Reorder from [facility] for eRx and Interaction Alerts*Taking BUSPIRONE 15MG TABLETS , Notes to Pharmacist: *Reorder from [facility] for eRx and Interaction Alerts*Taking quetiapine 400 mg tablet , Notes to Pharmacist: *Reorder from [facility] for eRx and Interaction Alerts*Taking tizanidine 4 mg tablet , Notes to Pharmacist: *Reorder from [facility] for eRx and Interaction Alerts*Taking quetiapine 400 mg tablet , Notes to Pharmacist: *Reorder from [facility] for eRx and Interaction Alerts*Taking quetiapine 400 mg tablet , Notes to Pharmacist: *Reorder from [facility] for eRx and Interaction Alerts*Taking Trazodone HCl 100 MG Tablet , Notes to Pharmacist: *Reorder from [facility] for eRx and Interaction Alerts*Taking qtuynnqnyl-glxlyxrpwkwlf-abrx 50-325-40 mg capsule , Notes to Pharmacist: *Reorder from [facility] for eRx and Interaction Alerts*Taking CYCLOBENZAPRINE 10MG TABLETS , Notes to Pharmacist: *Reorder from [facility] for eRx and Interaction Alerts*Taking quetiapine 400 mg tablet , Notes to Pharmacist: *Reorder from [facility] for eRx and Interaction Alerts*Taking pantoprazole 40 mg tablet,delayed release (DR/EC) , Notes to Pharmacist: *Reorder from [facility] for eRx and Interaction Alerts*Taking quetiapine 400 mg tablet , Notes to Pharmacist: *Reorder from [facility] for eRx and Interaction Alerts*Taking quetiapine 400 mg tablet , Notes to Pharmacist: *Reorder from [facility] for eRx and Interaction Alerts*Taking Trazodone HCl 100 MG Tablet , Notes to Pharmacist: *Reorder from [facility] for eRx and Interaction Alerts*Taking Diclofenac Sodium 75 mg tablet,delayed release (DR/EC) , Notes to Pharmacist: *Pick strength-form from [facility] for eRX*Taking Loratadine 10 mg tablet Taking Mobic 7.5 mg tablet , Notes to Pharmacist: *Reorder from [facility] for eRx and Interaction Alerts*Taking Lancets 30 gauge misc Taking atorvastatin 10 mg tablet , Notes to Pharmacist: *Reorder from [facility] for eRx and Interaction Alerts*Taking atorvastatin 10 mg tablet , Notes to Pharmacist: *Reorder from [facility] for eRx and Interaction Alerts*Taking Gabapentin 600 mg tablet Taking Tylenol Extra Strength 500 mg tablet Taking Claritin 10 mg tablet Taking Gabapentin 600 mg tablet Taking Mobic 7.5 mg tablet , Notes to Pharmacist: *Reorder from [facility] for eRx and Interaction Alerts*Taking blood-glucose meter misc , Notes to Pharmacist: *Reorder from [facility] for eRx and Interaction Alerts*Taking OLANZapine 10 mg tablet Taking Suphedrine 30 mg tablet , Notes to Pharmacist: *Reorder from [facility] for eRx and Interaction Alerts*Taking Topamax 25 mg tablet Taking Topamax 25 mg tablet Taking HYDROcodone-Acetaminophen 5-325 mg tablet Taking OLANZapine 10 mg tablet Taking Topamax 25 mg tablet * * Date:
--- OUTSIDE RECORDS SUMMARY | 2025-05-29 10:45 | XMS_ITS | Encounter Summary ---
Author Organization [employer] Address [address] [place] [address] Care Team Providers Care Pipe Coverer And Insulator Name Role Phone Airam Romero MD Primary Care Pro vider Fred Dotson Unavailable Unavailable Reason for Referral * Imaging (STAT) - Authorized Specialty Diagnoses / Procedures Referred By Contac t Referred To Contact Radiology Diagnoses Weight loss Heavy tobacco smoker Abnormal CT of the abdomen Procedures CT Abdomen Pelvis w/ and w/o Contrast Airam Romero MD [address] [place] [address] Phone: tel: fax: [address] [phone] Phone: tel: fax: Referral ID Status Reason Start Date Expiration Date V isits Requested Visits Authorized [id number] Authorized 05/29/2025 05/29/2026 1 1 * Imaging (STAT) - Authorized Specialty Diagnoses / Procedures Referred By Contac t Referred To Contact Radiology Diagnoses Weight loss Heavy tobacco smoker Chronic cough Procedures CT Chest w/ Contrast Airam Romero MD [address] [place] [address] Phone: tel: fax: [address] [phone] Phone: tel: fax: Referral ID Status Reason Start Date Expiration Date V isits Requested Visits Authorized [id number] Authorized 05/29/2025 05/29/2026 1 1 * Imaging (STAT) - Authorized Specialty Diagnoses / Procedures Referred By Contac t Referred To Contact Radiology Diagnoses Weight loss Dysphagia, unspecified type Procedures FL Esophagus Barium Swallow Airam Romero MD [address] [place] [id number] Phone: tel: fax: [address] [phone] Phone: tel: fax: Referral ID Status Reason Start Date Expiration Date Visits Requested Visits Authorized [id number] Authorized Perform Procedure 5 05/29/2026 1 1 * Consultation (STAT) - Pending Review Specialty Diagnoses / Procedures Referred By Contac t Referred To Contact Gastroenterology Diagnoses Weight loss Colon cancer screening Dysphagia, unspecified type Airam Romero MD [address] [place] [address] Phone: tel: fax: Referral ID Status Reason Start Date Expiration Date Visits Requested Visits Authorized [id number] Pending Review Specialty Services Required 5 05/29/2026 1 1 * Imaging (Routine) - Closed Specialty Diagnoses / Procedures Referred By Contac t Referred To Contact Radiology Diagnoses Annual physical exam Procedures BI Mammogram Screening Tomosynthesis Bilateral Airam Romero MD [address] [place] [address] Phone: tel: fax: [address] [phone] Phone: tel: fax: Referral ID Status Reason Start Date Expiration Date Visits Re quested Visits Authorized [id number] Closed 05/29/2025 05/29/2026 1 1 * Consultation (Routine) - Authorized Specialty Diagnoses / Procedures Referred By Contac t Referred To Contact Pharmacy Diagnoses Mood disorder (CMS/HCC) Thyroid disease Airam Romero MD [address] [place] [address] Phone: tel: fax: Referral ID Status Reason Start Date Expiration Date Visits Requested Visits Authorized [id number] Authorized Continuity of Care 05/29/2025 05/29/2026 6 6 Encounter Details Date Type Department Care Team (Late st Contact Info) Description 05/29/2025 10:45 AM EST Office Visit [facility] [address] [place] [phone] Airam Romero MD [address] [place] [phone] Mood disorder (CMS/HCC) (Primary Dx); Moderate persistent asthma, unspecified whether complicated; Chronic constipation; Thyroid disease; Hx of fracture of lower leg; Mild intermittent asthma without complication; Annual physical exam; Weight loss; Heavy tobacco smoker; Breast cancer screening by mammogram; Abnormal CT of the abdomen; Dysuria; Colon cancer screening; Dysphagia, unspecified type; Chronic cough; Encounter for immunization; Hypothyroidism, unspecified type; Gastroesophageal reflux disease without esophagitis; Health care maintenance; Anxiety; Cocaine use; Poor memory; Chronic migraine without aura without status migrainosus, not intractable; Elevated alkaline phosphatase level; Cigarette nicotine dependence without complication Social History Tobacco Use Types Packs/Day Years Used Date Smoking Tobacco: Every Day Cigarettes 0.5 20 Passive Smoke Exposure: Current Smokeless Tobacco: Never Comments:Started tobacco smo shanon 16 y of age until now ---1/2 PQT A day -smoking for 34 years --calc PQT a year 16 Alcohol Use Standard Drinks/Week Comments Yes 0 (1 standard drink = 0.6 oz pur e alcohol) social Depression Answer Date Recorded Patient Health Questionnaire-9 Score 25 05/29/2025 Patient Health Questionnaire-9 Score 25 05/29/2025 Last PHQ-9: Questionnaire Data Not on file 1 07/30/2024 Housing Stability Answer Date Recorded What is your housing situation today? I have carlos fernando 12/27/[address] you li ve. Do you have problems with any of the following? None of the above 12/27/2024 Food Insecurity Answer Date Recorded Within the past 12 months, y ou worried that your food would run out before you got money to buy more: Sometimes True 2024 Within the past 12 months,th e food you bought just didn't last and you didn't have enough money to get more: Sometimes True 12/27/2024 Transportation Answer Date Recorded In the past 12 months, has l ack of transportation kept you from medical appts, meetings, work or from getting things needed for daily living? Yes, it has kept me from medical appointments or getting medications. 12/27/2024 Utilities Answer Date Recorded In the past 12 months, has t he electric, gas, oil or water company threatened to shut off services in your home? No 12/27/2024 Depression Answer Date Recorded Patient Health Questionnaire-2 Score 6 05/29/2025 Internet Access Answer Date Recorded Internet Access Q1 No 12/27/2024 Internet Access Q2 I cannot afford it 12/27/2024 Comments No Sex and Gender Information Value Date Recorded Sex Assigned at Female 10/19/2022 1:50 PM EDT Legal Sex Female 1:41 PM EDT Gender Identity Female 10/19/2022 1:50 PM EDT Sexual Orientation Straight 12/02/2022 9: 43 AM EDT documented as of this encounter Last Filed Vital Signs Vital Sign Reading Time Taken Comments Blood Pressure 90/70 05/29/2025 11:09 AM EST Pulse 80 05/29/2025 11:09 AM EST Temperature 36.2 C (97.1 F) 05/29/2025 11:09 AM EST Respiratory Rate 20 05/29/2025 11:09 AM EST Oxygen Saturation - - Inhaled Oxygen Concentration - - Weight 47.6 kg (105 lb) 05/29/2025 11:09 AM EST Height 149.9 cm (4' 11 ) 05/29/2025 11:09 AM EST Body Mass Index 21.21 05/29/2025 11:09 AM EST documented in this encounter Functional Status * Over the past 2 weeks, how often have you been bothered by any of the following problems? Question Answer Date of Assessment Author Patient Health Questionnaire -2 Score 6 05/29/2025 4:23 PM EST Birdie Desai MA * Little interest or pleasure in doing things Answer Date of Assessment Author Nearly every day 05/29/2025 4:23 PM Birdie Felton MA * Feeling down, depressed, or hopeless Answer Date of Assessment Author Nearly every day 05/29/2025 4:23 PM Birdie Felton MA * Trouble falling or staying asleep, or sleeping too much Answer Date of Assessment Author Nearly every day 05/29/2025 4:23 PM Birdie Felton MA * Feeling tired or having little energy Answer Date of Assessment Author Nearly every day 05/29/2025 4:23 PM Birdie Felton MA * Poor appetite or overeating Answer Date of Assessment Author Nearly every day 05/29/2025 4:23 PM Birdie Felton MA * Feeling bad about yourself - or that you are a failure or have let yourself or your family down Answer Date of Assessment Author Nearly every day 05/29/2025 4:23 PM Birdie Felton MA * Trouble concentrating on things, such as reading the newspaper or watching television Answer Date of Assessment Author Nearly every day 05/29/2025 4:23 PM Birdie Felton MA * Moving or speaking so slowly that other people could have noticed? Or the opposite - being so fidgety or restless that you have been moving around a lot more than usual. Answer Date of Assessment Author Nearly every day 05/29/2025 4:23 PM Birdie Felton MA * Thoughts that you would be better off or hurting yourself in some way Answer Date of Assessment Author Several days 05/29/2025 4:23 PM Marycarmen Felton MA * Patient Health Questionnaire-9 Score Answer Date of Assessment Author 25 05/29/2025 4:23 PM Marycramen Felton MA * Over the last 2 weeks, how often have you been bothered by any of the following problems? Question Answer Date of Assessment Author Feeling nervous, anxious, or on edge 3 05/29/2025 4:24 PM Birdie Fetlon MA Not being able to stop or co ntrol worrying 3 05/29/2025 4:24 PM Birdie Felton MA Worrying too much about diff erent things 3 05/29/2025 4:24 PM Birdie Felton MA Trouble relaxing 3 05/29/2025 4:24 PM Birdie Reyna MA Being so restless that it is hard to sit still 1 05/29/2025 4:24 PM Birdie Felton MA Becoming easily annoyed or irritable 3 05/29/2025 4:24 PM Birdie Felton MA Feeling afraid as if somethi ng awful might happen 1 05/29/2025 4:24 PM Birdie Felton MA NOREEN-7 Total Score 17 05/29/2025 4:24 PM Birdie Felton MA * How difficult have these problems made it for you to do your work, take care of things at home, or get along with other people? Answer Date of Assessment Author Extremely difficult 05/29/2025 4:23 PM Birdie Gray MA documented as of this encounter Progress Notes * Airam Elkins MD - 05/29/2025 10:45 AM EST Subjective Patient ID: Cristel Cobian is a 50 y.o. female who presents for Annual exam HPI 50 y o F from [place] with PMX of mood disorder, asthma,chronic constipation, GERD,migraine VELASCO,active tobacco smoker,hx of chronic right lower leg pain 2/2 fracture ,hx of cocaine use. Hx of GIB per pt in05/2022,median arcuate ligament syndrome Comes for annual exam and resume care w me -Pt seen by me last in 10/2023 So 18 months ago . Pt has not completed any of labs or images requested at last apt Pt reports to be concern with 6 months of weight loss ,reports decrease appetite ,also for last 4 months having dysphagia , no odynophagia,denies masses on neck or LDN,does reports night sweats for last 3 weeks ,reports unchanged chronic cough Lost so far 29 pound in last 7 months Denies any new respiratory symptoms,denies hemoptysis , denies N/V/D has chronic constipation,denies melenas nor BRPR,denies hematuria ,denies Fever -Reports 3 days of dysuria, reports some increase urgency and strong urine odor,denies hematuria ,denies fever ----- Assessment and Plan: Health care maintenance -Annual exam 05/2025 -Menopause: 44 y of age -Pap smear: 03/2023 ASCUS w HPV neg --f here w 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 -referred today for [employer] again Asthma -saw pulm 03/2023 -plan was to obtain IgE level, CBC with differential, and RAST panel ,PFT ,per pthad some test but never f up Likely also COPD trelegy not covered by insurance Better controlled when was using incruse but run out of med -continue Advair and resume today Incruse ellipta ( umeclidinium) -prn albuterol -monitor at next visit -will either refer for PFT at next apt vs refer back to her orthotics technician if lost care Chronic constipation Reports chronic constipation -was following w GI in [place] but lost care and never had colonoscopy -diet changes advised -tried w metamucil w no improvement -continue Colace -px miralax prn -referred to GI x management of chronic GI symptoms and screening colonoscopy--referred again today Gastroesophageal reflux disease without esophagitis EGD 08/2022 Erythema in stomach ,scar in antrum suggestive of prior PUD s/P Bx - no report -continue for now famotidine -per pt had UGIB in 05/2022 - requested record to Renee Kiran To try to get EGD biopsy result done in 08/2022 -not able to obtain -Referred to GI again today Kidney cysts -CT Abd/pelvis w IV contrast 05/2022: Aortic atherosclerosis ,right renal lesion of 10 mm rec for abd MRI w and w/o contrast -MRI pelvis w/wo contrast 04/2023 Debris in bladder ,possible blood products consider CT urogram ,otherwise normal. Normal T1-T2 signal -referred for renal US before--never done -referred for CT urogram at last apt never done -Given weight loss I sent today instead CT abdominal/pelvis with and w/o contrast --I called today [facility] rad lab to try to contact radiologist for advise in order but was not able to contact any one Hypothyroidism reports stopped taking levothyroxine 25 mcg for the past couple of months - states run out of med. -02/2023 TFT wnl -repeat TFT -with result if needed will resume levothyroxine 25 mcg but hold until get labs Chronic migraine without aura without status migrainosus, not intractable Currently controlled Off butalbital/APAP,caffine -tylenol prn -trizatriptan prn -Topiramate 25 mg daily --pt taking on and off PRN-explained med should be taken daily -this may decrease appetite as well but not expect that significant amount as in pt -Continue Mg PO Cigarette nicotine dependence Started tobacco smoking 16 y of age until now ---1/2 PQT A day -smoking for 34 years --calc PQT a year 16 pxed chantix before but not used -refuse for now -still not willing to stop -advised in length to stop smoking -offered tobacco cessation program-referred but not following -px before nicotine lozanges and nicotine patches 14 mg but not using --states not useful --agreed today to resume gums sent today to try to decrease consumption Elevated alkaline phosphatase level 02/2023 Alk phos 128<---139---noted elevated as well mx times w PCP before up to 160s , normal LFTs ,GGT 49 -from chart review : pt had CT abd/pelvis 04/2022: Non specific heterogeneous appearance of osseousstructures more in pelvis rec x MRI to exclude marrow replacement process -sacrum and coccyx XR 02/25/2023 :Unremarkable examination -MRI pelvis w/wo contrast 04/2023 Debris in bladder ,possible blood products consider CT urogram ,otherwise normal. Normal T1-T2 signal -Referred for abd US--- gave today again information to pt to call for ap-never done -referred today for CT abdomen/pelvis -repeat chem ,GGT today and bone alk phos Cocaine use Pt reports cocaine use hx -still using -Per pt sporadically twice a month -encouraged to continue avoiding use -referred to today to start care w therapist and psychiatrist -will hold off on her clonidine -not using for some time per pt and has borderline BP so I am afraid to lower BP if resume med Hx of fracture of lower leg/chronic leg pain Hx of fracture R lower leg 5 years ago with metal plates and screws. Associated pain and swelling per pt -no swelling noted here on exam. Treated with Gabapentin in [place]? Per pt helps for it and cyclobenzaprine prn? and meloxicam prn -XR tibia/fibula 02/25/2023 :Healed posttraumatic and postoperative changes are seen of the right tibia and fibula.No fracture or dislocation is seen. There is no right knee joint effusion. The joint spaces of the right knee and ankle are well-maintained. -continue meds x now. Continue Gabapentin 800 mg that pt states is helping and tolerating well -meloxicam PRN for moderate pain -advised tylenol prn x now -referred to PM before never seen -already received cane Mood disorder PHQ9: 26, NOREEN 19 ,no active SI but has thoughts to be better off Per Fred Conroy last apt 11/2023 Differential includes PTSD; Schizoaffective Disorder (Depressed); Schizophrenia or other primary psychosis; MDD with Psychotic Features; SKYE-related psychosis (cocaine).Trauma hx with flashbacks and nightmares. Disordered sleep. Unlikely to be Bipolar Disorder, as pt denies ever experiencing anything that could be considered trip or hypomania. Auditory and visual hallucinations. Patient has been dissatisfied with all attempts to improve mood and sleep. We have not been successful in reducing psychiatric polypharmacy. I have declined to prescribe Ambien. She thinks she slept better with Trazodone and Buspar along with Seroquel. Will resume Trazodone 100 mg now. Buspar is unlikely to make much difference and will not be prescribed. Other medications will be continued: Seroquel 100 mg in am and noon, and Seroquel 300 mg 2 tabs (total dose 600 mg) at bedtime. Continue Venlafaxine XR 150 mg daily,. Continue Clonidine 0.1 mg TID for sleep, anxiety, and cocaine cravings. Also continue Gabapentin 800 mg TID, Prescriptions for all with refills are sent to her pharmacy today. She will continue with therapist as usual, and have intake with agency psychiatric prescriber as soon as possible, since this provider will be retiring. We have closed her case today. All her questions were answered and I have wished her well. She agrees with the plan. EKG 2022 RBBB ,QTC 461-no ischemic findings ,no previous EKG to compare -BH not able to see in person today , got today apt with Katie Suarez for 05/15/2025 At 2 PM in person -will need referral for psychiatrist and threapist --gave info of apt in written to pt -continue trazodone and Quetiapine -pt off clonidine for months -will hold for now w borderline BP -pt off venlafaxine ,states run out -used to take 150 mg daily-will resume 75 mg daily and told if tolerating in a week can increase to BID -if doing ok next apt can change to 150 mg daily if not following then already w psychiatrist -Will do EKG next apt for mx psych meds to eval QTC Median arcuate ligament syndrome -CTA 05/2022: Thoracic aorta reveled atherosclerotic disease, 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 and mid posterior dilation with median arcuate ligament syndrome -from obtained records today from [place] hospitalization back in 05/2022 pt was diagnosed with arcuate ligament syndrome and referred to surgeon for possible release of celiac artery -referred to [facility] surgeon in the past -Dr Jean -seems pt was never seen before - will f at future apt Poor memory -gave info for SPECIAL EVENT ASSISTANT at last apt -states was evaluated but not started yet -pt to check w agency -requested today RN to help getting VNA to help w medications ,pt w poor memory ,in current evaluation for weight loss and multiple complaints -poor retentive will need to eval memory next apt-will refer to operations staff specialist security at next visit Urinary incontinence -pt reports chronic urinary incontinence s/p sling but again symptomatic -referred to Urogyn at previous apt ---unsure if pt was seen Weight loss Dysphagia Pt seen by me last in 10/2023 So 18 months ago . Pt has not completed any of labs or images requested at last apt Pt reports to be concern with 6 months of weight loss ,reports decrease appetite ,also for last 4 months having dysphagia , no odynophagia,denies masses on neck or LDN,does reports night sweats for last 3 weeks ,reports unchanged chronic cough Lost so far 29 pound in last 7 months Denies any new respiratory symptoms,denies hemoptysis , denies N/V/D has chronic constipation,denies melenas nor BRPR,denies hematuria ,denies Fever -12/2024 hb 12.2 MCV 98.4, Iron 25 low , ferritin wnl --pt was started on iron by another provider ,seems for possible RLS? Pt is tobacco smoker , unfortunately not completed in the past breast and colon ca screening Uptodate w cervical ca screening From exam noted to be thin but no obvious LDN , no masses palpated, only mild lower abdominal discomfort w palpation -will reorder all annual labs today including TSH, CBC,chem ,STIs ,also T-spot, LDH-will inform pt results -reorder MM -referred back to GI for colonoscopy and consideration for EGD STAT -referred today for barium Swallow test-STAT -referred for CT chest abdominal and pelvis STAT Dysuria Reports 3 days of dysuria, reports some increase urgency and strong urine odor,denies hematuria ,denies fever Urine dipstick showing only blood trace rest neg -referred today for UA w relex culture-will call w results -sent pyridium x 2 days -hold ATB w normal test here but will f UA w reflex culture Review of Systems Constitutional: Positive for diaphoresis and unexpected weight change. Negative for chills, fatigueand fever. HENT: Negative. Eyes: Negative. Respiratory: Positive for cough (chronic dry cough). Negative for shortness of breath. Cardiovascular: Negative. Gastrointestinal: Positive for constipation. Dysphagia Genitourinary: Positive for dysuria and frequency. Musculoskeletal: Negative. Neurological: Negative. Hematological: Negative. Psychiatric/Behavioral: Positive for behavioral problems. Negative for suicidal ideas. The patient is nervous/anxious. Objective BP 90/70 (BP Location: Right arm, Patient Position: Sitting, BP Cuff Size: Adult) Pulse 80 Temp97.1 ??F (36.2 ??C) (Temporal) Resp 20 Ht 4' 11 (1.499 m) Wt 105 lb (47.6 kg) BMI 21.21 kg/m?? Physical Exam Vitals reviewed. Constitutional: General: She is not in acute distress. Appearance: Normal appearance. HENT: Head: Normocephalic and atraumatic. Right Ear: Tympanic membrane and ear canal normal. Left Ear: Ear canal normal. There is impacted cerumen. Mouth/Throat: Mouth: Mucous membranes are moist. Pharynx: Oropharynx is clear. No oropharyngeal exudate or posterior oropharyngeal erythema. Eyes: General: No scleral icterus. Extraocular Movements: Extraocular movements intact. Pupils: Pupils are equal, round, and reactive to light. Cardiovascular: Rate and Rhythm: Normal rate and regular rhythm. Heart sounds: Normal heart sounds. No murmur heard. Pulmonary: Effort: Pulmonary effort is normal. Breath sounds: Normal breath sounds. No wheezing or rhonchi. Abdominal: General: Abdomen is flat. Bowel sounds are normal. Palpations: Abdomen is soft. There is no mass. Tenderness: There is abdominal tenderness. There is no guarding or rebound. Comments: Mild lower abdominal tenderness Musculoskeletal: General: Normal range of motion. Cervical back: Normal range of motion and neck supple. No rigidity. Right lower leg: No edema. Left lower leg: No edema. Lymphadenopathy: Cervical: No cervical adenopathy. Skin: General: Skin is warm. Findings: No rash. Neurological: General: No focal deficit present. Mental Status: She is alert and oriented to person, place, and time. Mental status is at baseline. Psychiatric: Mood and Affect: Mood normal. Behavior: Behavior normal. Comments: anxious Assessment/Plan Problem List Items Addressed This Visit Chronic migraine without aura without status migrainosus, not intractable Relevant Medications Magnesium Oxide -Mg Supplement (Magnesium Extra Strength) 400 MG capsule venlafaxine (Effexor) 75 MG tablet Hx of fracture of lower leg Relevant Medications Diclofenac Sodium 1 % gel Diclofenac Sodium 1 % gel Anxiety Relevant Medications venlafaxine (Effexor) 75 MG tablet Mood disorder (CMS/HCC) - Primary Relevant Medications venlafaxine (Effexor) 75 MG tablet Other Relevant Orders Referral to Pharmacy MTM Chronic constipation Relevant Medications dicyclomine (Bentyl) 10 MG capsule docusate sodium (Colace) 100 MG capsule Magnesium Oxide -Mg Supplement (Magnesium Extra Strength) 400 MG capsule Gastroesophageal reflux disease without esophagitis Relevant Medications dicyclomine (Bentyl) 10 MG capsule Magnesium Oxide -Mg Supplement (Magnesium Extra Strength) 400 MG capsule Cigarette nicotine dependence without complication Relevant Medications nicotine polacrilex (Nicorette) 2 MG gum Health care maintenance Elevated alkaline phosphatase level Relevant Orders Alkaline Phosphatase, Bone Specific Cocaine use Relevant Medications venlafaxine (Effexor) 75 MG tablet Hypothyroidism Asthma Relevant Medications Ventolin HFA 108 (90 Base) MCG/ACT inhaler Magnesium Oxide -Mg Supplement (Magnesium Extra Strength) 400 MG capsule Umeclidinium [place] (Incruse Ellipta) 62.5 MCG/ACT aerosol powder Poor memory Relevant Medications venlafaxine (Effexor) 75 MG tablet Weight loss Relevant Orders Referral to Gastroenterology Lactate Dehydrogenase (LD) [place] Esophagus Barium Swallow CT Chest w/ Contrast CT Abdomen Pelvis w/ and w/o Contrast Dysphagia Relevant Medications dicyclomine (Bentyl) 10 MG capsule Magnesium Oxide -Mg Supplement (Magnesium Extra Strength) 400 MG capsule Other Relevant Orders Referral to Gastroenterology [place] Esophagus Barium Swallow Dysuria Relevant Medications dicyclomine (Bentyl) 10 MG capsule Magnesium Oxide -Mg Supplement (Magnesium Extra Strength) 400 MG capsule phenazopyridine (Pyridium) 200 MG tablet Other Relevant Orders POCT Urinalysis (Completed) Urinalysis, Complete, with Reflex to Culture Other Visit Diagnoses Thyroid disease Relevant Orders Referral to Pharmacy MTM Annual physical exam Relevant Medications Diclofenac Sodium 1 % gel Other Relevant Orders BI Mammogram Screening Tomosynthesis Bilateral CBC auto differential Chlamydia/Trichomonas/Neisseria gonorrhoeae, PCR, Urine Comprehensive Metabolic Panel Hemoglobin A1c Hepatitis B Core Antibody, Total Hepatitis B Surface Antibody, Qualitative Hepatitis B surface antigen, EIA Hepatitis C Antibody with Reflex to HCV, RNA, Quantitative, Real-Time PCR HIV-1/2 Antigen and Antibodies, Fourth Generation, with Reflexes Lipid Panel, Standard Syphilis Screen Vitamin B12 (Cobalamin) and Folate Panel, Serum Vitamin D, 25-Hydroxy, Total, Immunoassay TSH T4, Free T-SPOT??.TB Gamma Glutamyl Transferase (GGT) Heavy tobacco smoker Relevant Medications nicotine polacrilex (Nicorette) 2 MG gum Other Relevant Orders CT Chest w/ Contrast CT Abdomen Pelvis w/ and w/o Contrast Breast cancer screening by mammogram Abnormal CT of the abdomen Relevant Medications dicyclomine (Bentyl) 10 MG capsule docusate sodium (Colace) 100 MG capsule Magnesium Oxide -Mg Supplement (Magnesium Extra Strength) 400 MG capsule Other Relevant Orders CT Abdomen Pelvis w/ and w/o Contrast Colon cancer screening Relevant Medications dicyclomine (Bentyl) 10 MG capsule docusate sodium (Colace) 100 MG capsule Magnesium Oxide -Mg Supplement (Magnesium Extra Strength) 400 MG capsule Other Relevant Orders Referral to Gastroenterology Chronic cough Relevant Medications Ventolin HFA 108 (90 Base) MCG/ACT inhaler Umeclidinium [place] (Incruse Ellipta) 62.5 MCG/ACT aerosol powder Other Relevant Orders CT Chest w/ Contrast Encounter for immunization Relevant Orders COVID-19 VACCINE 8616-6414 (Comirnaty) 19 yrs + (Completed) FLU VACCINE TRIVALENT [id number] (Fluarix) 19 yrs + (Completed) HEPLISAV-B VACCINE ADULT 19 yrs + (Completed) documented in this encounter Plan of Treatment Upcoming Encounters Date Type Department Care Team (Late st Contact Info) Description 08/23/2025 1:15 PM EDT Office Visit [facility] [address] [place] [phone] Airam Romero MD [address] [place] [address] Pending Results Name Type Priority Associated Diagnoses Date /Time Urinalysis, Complete, with Reflex to Culture Lab Routine Dysuria 05/29/2025 11:30 AM EST Scheduled Orders Name Type Priority Associated Diagnoses Orde r Schedule BI Mammogram Screening Tomosynthesis Bilateral Imaging Routine Annual physical exam Expected: 05/29/2025, Expires: 07/30/2026 Lactate Dehydrogenase (LD) Lab Routine Weight loss Expected: 05/29/2025 (Approximate), Expires: 05/29/2026 CBC auto differential Lab Routine Annual physical exam Expected: 05/29/2025 (Approximate), Expires: 05/29/2026 Chlamydia/Trichomonas/Nei sseria gonorrhoeae, PCR, Urine Lab Routine Annual physical exam Ordered: 05/29/2025 Comprehensive Metabolic Panel Lab Routine Annual physical exam Expected: 05/29/2025 (Approximate), Expires: 05/29/2026 Hepatitis B Core Antibody, Total Lab Routine Annual physical exam Expected: 05/29/2025 (Approximate), Expires: 05/29/2026 Hepatitis B Surface Antibody, Qualitative Lab Routine Annual physical exam Expected: 05/29/2025 (Approximate), Expires: 05/29/2026 Hepatitis B surface antigen, EIA Lab Routine Annual physical exam Expected: 05/29/2025 (Approximate), Expires: 05/29/2026 Hepatitis C Antibody with Reflex to HCV, RNA, Quantitative, Real-Time PCR Lab Routine Annual physical exam Expected: 05/29/2025 (Approximate), Expires: 05/29/2026 HIV-1/2 Antigen and Antibodies, Fourth Generation, with Reflexes Lab Routine Annual physical exam Expected: 05/29/2025 (Approximate), Expires: 05/29/2026 Lipid Panel, Standard Lab Routine Annual physical exam Expected: 05/29/2025 (Approximate), Expires: 05/29/2026 Syphilis Screen Lab Routine Annual physical exam Expected: 05/29/2025 (Approximate), Expires: 05/29/2026 Vitamin B12 (Cobalamin) and Folate Panel, Serum Lab Routine Annual physical exam Expected: 05/29/2025 (Approximate), Expires: 05/29/2026 Vitamin D, 25-Hydroxy, Total, Immunoassay Lab Routine Annual physical exam Expected: 05/29/2025 (Approximate), Expires: 05/29/2026 TSH Lab Routine Annual physical exam Expected: 05/29/2025 (Approximate), Expires: 05/29/2026 T4, Free Lab Routine Annual physical exam Expected: 05/29/2025 (Approximate), Expires: 05/29/2026 T-SPOT .TB Lab Routine Annual physical exam Expected: 05/29/2025 (Approximate), Expires: 05/29/2026 Gamma Glutamyl Transferase (GGT) Lab Routine Annual physical exam Expected: 05/29/2025 (Approximate), Expires: 05/29/2026 FL Esophagus Barium Swallow Imaging STAT Weight loss Dysphagia, unspecified type Expected: 05/29/2025, Expires: 05/29/2026 CT Chest w/ Contrast Imaging STAT Weight loss Heavy tobacco smoker Chronic cough Expected: 05/29/2025, Expires: 05/29/2026 CT Abdomen Pelvis w/ and w/o Contrast Imaging STAT Weight loss Heavy tobacco smoker Abnormal CT of the abdomen Expected: 05/29/2025, Expires: 05/29/2026 Alkaline Phosphatase, Bone Specific Lab Routine Elevated alkaline phosphatase level Expected: 05/29/2025 (Approximate), Expires: 05/29/2026 Scheduled Referrals Name Type Priority Associated Diagnoses Order Schedule Referral to Pharmacy MTM Outpatient Referral Routine Mood disorder (CMS/HCC) Thyroid disease Ordered: 05/29/2025 Referral to Gastroenterology Outpatient Referral STAT Weight loss Colon cancer screening Dysphagia, unspecified type Expected: 05/29/2025 (Approximate), Expires: 05/29/2026 documented as of this encounter Goals Goal Patient Goal Type Associated Problems Recent Progress Patient-Stated? Author Patient will adhere to medication regimen General No Rosy Nunes Keep your medical appointments Lifestyle No Rosy Nunes documented as of this encounter Procedures Procedure Name Priority Date/Time Associated Diagnosis Comments HEMOGLOBIN A1C Routine 05/29/2025 1:29 PM EST Annual physical exam POCT URINALYSIS DIPSTICK Routine 05/29/2025 12:20 PM EST Dysuria URINALYSIS, COMPLETE, WITH REFLEX TO CULTURE Routine 05/29/2025 11:30 AM EST Dysuria documented in this encounter Results * Hemoglobin A1c (05/29/2025 1:29 PM EST) Hemoglobin A1c 5.3 <6.0 % [facility] Comment:Hemoglobin A1C Refer ence Range Adults: 4.8 - 6.0 % Non diabetic: < 6.0 % Goal: < 7.0 %Additional Action Suggested: > 8.0 %Note: Hemoglobin A1c results are invalid for patients with abnormal amounts of HbF. Blood transfusions may impact the HbA1c concentration in the patient sample. Estimated Average Glucose 105 mg/dL [facility] Comment:eAG = Estimated ave rage glucose which is %A1C expressed asaverage glucose, using the formula of the [id number] Glucose study (ADAG), Diabetes Care, Vol.31,#8,2007 Blood Venous blood specimen / Unknown 05/29/2025 1:29 PM EST 05/29/2025 4:04 PM EST us Airam Elkins MD LAB BLOOD ORDERAB LES Final Result [facility] [address] [place] [phone] * (ABNORMAL) POCT Urinalysis (05/29/2025 12:20 PM EST) Color, UA Yellow Clarity, UA Clear Glucose, UA Negative Bilirubin, UA Negative Ketones, UA Negative Spec Grav, UA 1.025 Blood, UA Positive(A) Negative, None Detected Comment:trace-intact pH, UA 6.5 Protein, UA Negative Urobilinogen, UA 0.2 Leukocytes, UA Negative Negative, Rare, Trace, 1+ (17), 2+ (35), 3+ (70), Trace (15) Nitrite, UA Negative Negative, None Detected QC Media Lot # [id number] Lot# Expiration Date Urine (Urine, Random) 05/29/2025 12:20 PM EST us Airam Elkins MD POINT OF CARE ZAHIRA T ENTER/EDIT ORDERABLES Final Result documented in this encounter Visit Diagnoses Diagnosis Mood disorder (CMS/[facility])- Primary Unspecified episodic mood disorder Moderate persistent asthma, unspecified whether complicated Chronic constipation Unspecified constipation Thyroid disease Unspecified disorder of thyroid Hx of fracture of lower leg Mild intermittent asthma without complication Annual physical exam Routine general medical examination at a health care facility Weight loss Loss of weight Heavy tobacco smoker Breast cancer screening by mammogram Abnormal CT of the abdomen Nonspecific (abnormal) findings on radiological and other examination of abdominal area, including retroperitoneum Dysuria Colon cancer screening Special screening for malignant neoplasms, colon Dysphagia, unspecified type Chronic cough Cough Encounter for immunization Hypothyroidism, unspecified type Gastroesophageal reflux disease without esophagitis Esophageal reflux Health care maintenance Anxiety Anxiety state, unspecified Cocaine use Poor memory Memory loss Chronic migraine without aura without status migrainosus, not intractable Elevated alkaline phosphatase level Cigarette nicotine dependence without complication documented in this encounter Additional Health Concerns Assessment Noted Time PHQ-9 Depression Total Score: 25 025 4:23 PM EST documented as of this encounter Care Teams Pipe Coverer And Insulator Relationship Specialty Start Date End Date Airam Romero MD [address] [place], [place] [phone] PCP - General Internal Medicine 12/16/22 Fred Dotson FNP [address] [place] [phone] Nurse Practitioner Family Medicine 05/10/23 documented as of this encounter
[2025-05-29 16:30] LABS: Hematocrit 42.3 % (37.0-47.0); Hemoglobin 13.6 g/dl (12.0-16.0); Imm Gran Abs Auto 0.04 X10*3/uL (0.00-0.03); Imm Gran Pct Auto 0.7 % (0.0-0.4); Lymphocytes Absolute Auto 2.3 X10*3/uL (1.2-4.9); MANUAL DIFF FLAG SCAN; Mean Corpuscular HGB Conc 32.2 g/dl (31.0-35.0); Mean Corpuscular Hemoglobin 31.9 pg (27.0-33.0); Mean Corpuscular Volume 99.1 fL (80.0-98.0); NRBC Abs Auto 0.000 X10*3/uL (0.0-0.012); NRBC Pct Auto 0.0 /100WBC (0.0-0.2); PLT CLUMP 1; Red Blood Count 4.27 X10*6/uL (4.20-5.50); SCAN SMEAR FLAG 1
[2025-05-29 16:45] LABS: Appearance Urine Cloudy; Glucose Urine UA Negative (Negative); PH 6.5 (5.0-9.0); Specific Gravity - Urine 1.020 (1.005-1.025)
--- OUTSIDE RECORDS SUMMARY | 2025-05-29 17:00 | XMS_ITS | Encounter Summary ---
Author Organization [employer] Address [address] [facility] 7 [place] [address] Care Team Providers Care Citizen Participation Specialist Name Role Phone Airam Romero MD Primary Care Pro vider Fred Dotson Unavailable Unavailable Reason for Visit * Reason Comments Med Refill Encounter Details Date Type Department Care Team (Late st Contact Info) Description 02/08/2025 Refill [facility] [address] [place], [place] [phone] Airam Romero MD [address] [place] [phone] Social History Tobacco Use Types Packs/Day Years Used Date Smoking Tobacco: Every Day Cigarettes 0.5 20 Passive Smoke Exposure: Current Smokeless Tobacco: Never Comments:Started tobacco smo shanon 16 y of age until now ---1/2 PQT A day -smoking for 31 years --calc PQT a year 15.5 Alcohol Use Standard Drinks/Week Comments Yes 0 (1 standard drink = 0.6 oz pur e alcohol) social Depression Answer Date Recorded Patient Health Questionnaire-9 Score 21 12/27/2024 Patient Health Questionnaire-9 Score 21 12/27/2024 Last PHQ-9: Questionnaire Data Not on file 0 12/27/2024 Housing Stability Answer Date Recorded What is [...] the past 12 months, has t he [employer], gas, oil or water company threatened to shut off services in your home? No 12/27/2024 Depression Answer Date Recorded Patient Health Questionnaire-2 Score 5 12/27/2024 Internet Access Answer Date Recorded Internet Access Q1 No 12/27/2024 Internet Access Q2 I cannot afford it 12/27/2024 Comments No Sex and Gender Information Value Date Recorded Sex Assigned at Female 10/19/2022 1:50 PM EDT Legal Sex Female 1:41 PM EDT Gender Identity Female 10/19/2022 1:50 PM EDT Sexual Orientation Straight 12/02/2022 9: 43 AM EDT documented as of this encounter Plan of Treatment Upcoming Encounters Date Type Department Care Team (Late st Contact Info) Description 08/23/2025 1:15 PM EDT Office Visit [facility] [address] [place] [address] [phone] Airam Romero MD [address] [place] [phone] documented as of this encounter Goals Goal Patient Goal Type Associated Problems Recent Progress Patient-Stated? Author Patient will adhere to medication regimen General No Rosy Nunes Keep your medical appointments Lifestyle No Rosy Nunes documented as of this encounter Visit Diagnoses Not on filedocumented in this encounter Additional Health Concerns Assessment Noted Time PHQ-9 Depression Total Score: 21 025 11:30 AM EDT documented as of this encounter Care Teams Citizen Participation Specialist Relationship Specialty Start Date End Date Airam Romero MD [address] [place], [place] [phone] PCP - General Internal Medicine 12/16/22 Fred Dotson FNP [address] [place] [phone] Nurse Practitioner Family Medicine 05/10/23 documented as of this encounter
--- OUTSIDE RECORDS SUMMARY | 2025-05-29 17:00 | XMS_ITS | Encounter Summary ---
Author Organization [employer] Address [address] [facility] [address] [place] [address] Care Team Providers Care Child Care Name Role Phone Airam Romero MD Primary Care Pro vider Ferd Dotson Unavailable Unavailable Reason for Visit * Reason Comments Med Refill Encounter Details Date Type Department Care Team (Late st Contact Info) Description 02/08/2025 Refill [facility] [address] [place], [place] [phone] Tania Avila MD [address] [place] [address] Social History Tobacco Use Types Packs/Day Years [...] Description 08/23/2025 1:15 PM EDT Office Visit [facility] [address] [place] [phone] Airam Romero MD [address] [place] [phone] documented as of this encounter Goals Goal [...] documented as of this encounter Care Teams Child Care Relationship Specialty Start Date End Date Airam Romero MD [address] [place], [place] [phone] PCP - General Internal Medicine 12/16/22 Fred Dotson FNP [address] [place] [phone] Nurse Practitioner Family Medicine 05/10/23 documented as of this encounter
--- OUTSIDE RECORDS SUMMARY | 2025-05-29 17:01 | XMS_ITS | Clinical Summary ---
Author Organization [employer] Address [address] [facility] [address] [place] [address] Care Team Providers Care Front Desk Administrator Name Role Phone Airam Romero MD Primary Care Pro vider Fred Dotson Unavailable Unavailable Allergies No known active allergies Medications * This document contains information received from the source organization and may not represent a complete record from that organization. cloNIDine (Catapres) 0.1 MG tablet Take 1 tablet (0.1 mg) by mouth 3 times daily. 90 tablet 3 024 Active levothyroxine (Synthroid, Levoxyl) 25 MCG tabletIndications :Thyroid disease TAKE 1 TABLET (25 MCG) BY MOUTH BEFORE BREAKFAST 90 tablet 024 Active Additional Information Patient not taking.Reported on 05/29/2025 cetirizine (ZyrTEC) 10 MG tabletIndications :Allergic conjunctivitis of both eyes and rhinitis TAKE 1 TABLET BY MOUTH EVERY DAY 90 tablet 1 025 Active famotidine (Pepcid) 20 MG tablet TAKE 1 TABLET BY MOUTH TWICE A DAY 180 tablet 025 Active Advair HFA 115-21 MCG/ACT inhaler INHALE 2 PUFFS INTO THE LUNGS IN THE MORNING AND AT BEDTIME. RINSE MOUTH. DO NOT SWALLOW. 12 g 2 025 Active traZODone (Desyrel) 100 MG tablet TAKE 1 TABLET BY MOUTH EVERYDAY AT BEDTIME 90 tablet 025 Active celecoxib (CeleBREX) 100 MG capsule TAKE 1 CAPSULE BY MOUTH IF NEEDED EACH DAY FOR MILD PAIN. 30 capsule 2 025 Active gabapentin (Neurontin) 800 MG tabletIndications :Hx of fracture of lower leg TAKE 1 TABLET BY MOUTH THREE TIMES A DAY 90 tablet 3 Active QUEtiapine (SEROquel) 100 MG tablet TAKE 1 TABLET BY MOUTH EVERY MORNING AND NOON 180 tablet Active ferrous gluconate (Fergon) 324 (38 Fe) MG tablet TAKE 1 TABLET BY MOUTH EVERY OTHER DAY. 45 tablet Active QUEtiapine (SEROquel) 300 MG tablet TAKE 2 TABLETS BY MOUTH AT BEDTIME. ALSO TAKE SEROQUEL 100MG EVERY MORNING AND EVERY NOON. 180 tablet Active polyvinyl alcohol (Liquifilm Tears) 1.4 % ophthalmic solutionIndicatio ns:Dry eyes, bilateral Administer 1 drop into both eyes if needed for dry eyes. 15 mL 3 05/01/20 25 3:28 PM EST Active rizatriptan (Maxalt) 10 MG tabletIndications :Chronic migraine without aura without status migrainosus, not intractable TAKE 1 TABLET BY MOUTH AT ONSET OF MIGRAINE AND LIE DOWN FOR AT LEAST 30 MINS. MAY REPEAT AFTER 2 HOURS IF NEEDED.MAX 3 TABS/24 HOURS 5 tablet Active topiramate (Topamax) 25 MG tabletIndications :Chronic migraine without aura without status migrainosus, not intractable TAKE 1 TABLET (25 MG) BY MOUTH ONCE PER DAY. FOR MIGRAINE HEADACHES 30 tablet 1 025 2025 Active dicyclomine (Bentyl) 10 MG capsuleIndication s:Chronic constipation Take 1 capsule (10 mg) by mouth 3 times daily. 90 capsule 2 Active Diclofenac Sodium 1 % gelIndications:Hx of fracture of lower leg,Annual physical exam APPLY 2 GRAMS TO THE AFFECTED AREA TWICE A DAY IF NEEDED FOR PAIN 100 g 025 Active Ventolin HFA 108 (90 Base) MCG/ACT inhaler Inhale 2 puffs every 4 (four) hours if needed for wheezing or shortness of breath. 18 g 2 Active docusate sodium (Colace) 100 MG capsule Take 1 capsule (100 mg) by mouth 2 times daily. 180 capsule Active Magnesium Oxide -Mg Supplement (Magnesium Extra Strength) 400 MG capsule Take 1 tablet by mouth in the morning. 90 capsule 1 Active nicotine polacrilex (Nicorette) 2 MG gum Chew 1 each (2 mg) if needed for smoking cessation. 100 each 025 2025 Active Umeclidinium [place] (Incruse Ellipta) 62.5 MCG/ACT aerosol powder Inhale 1 Act (62.5 mcg) Once per day. 30 Act 5 025 2025 Active venlafaxine (Effexor) 75 MG tablet Take 1 tablet (75 mg) by mouth at noon and 1 tablet (75 mg) in the evening. 60 tablet 2 2025 Active phenazopyridine (Pyridium) 200 MG tablet Take 1 tablet (200 mg) by mouth if needed in the morning, at noon, and at bedtime for bladder spasms for up to 2 days. 6 tablet 2024 Active carbamide peroxide (Debrox) 6.5 % otic solution Administer 5-10 drops into affected ear(s) 2 times daily for 4 days. 30 mL 2024 Active Diclofenac Sodium 1 % gel Apply 1 Application topically if needed each day (legs). 50 g Active Diclofenac Sodium 1 % gelIndications:Hx of fracture of lower leg APPLY 2 GRAMS TO THE AFFECTED AREA TWICE A DAY IF NEEDED FOR PAIN 100 g 023 2024 Discontinued(R eorder (will not trigger notification to Pharmacy)) butalbital-acetam inophen-caffeine 50-325-40 MG tablet TAKE 1 TABLET BY MOUTH EVERY 4 HOURS NEEDED 10 tablet 024 2024 Discontinued(O ther) Umeclidinium [place] (Incruse Ellipta) 62.5 MCG/ACT aerosol powder Inhale 1 Inhalation in the morning. 1 each 3 024 2024 Discontinued(R eorder (will not trigger notification to Pharmacy)) docusate sodium (Colace) 100 MG capsule TAKE 1 CAPSULE BY MOUTH TWICE A DAY 180 capsule 2024 Discontinued(R eorder (will not trigger notification to Pharmacy)) dicyclomine (Bentyl) 10 MG capsuleIndication s:Chronic constipation TAKE 1 CAPSULE (10 MG) BY MOUTH 3 TIMES DAILY. 90 capsule 2 024 2024 Discontinued(R eorder (will not trigger notification to Pharmacy)) Ventolin HFA 108 (90 Base) MCG/ACT inhalerIndication s:Mild intermittent asthma without complication INHALE 2 PUFFS EVERY 4 (FOUR) HOURS IF NEEDED FOR WHEEZING OR SHORTNESS OF BREATH. 18 g 2 024 2024 Discontinued(R eorder (will not trigger notification to Pharmacy)) Magnesium Oxide -Mg Supplement (Magnesium Extra Strength) 400 MG capsule TAKE 1 CAPSULE BY MOUTH EVERY DAY IN THE MORNING 90 capsule 1 024 2024 Discontinued(R eorder (will not trigger notification to Pharmacy)) nicotine polacrilex (Nicorette) 2 MG gum Chew 1 each (2 mg) if needed for smoking cessation. 100 each 024 2024 Discontinued(R eorder (will not trigger notification to Pharmacy)) varenicline (Chantix Continuing ) 1 MG tablet Take 1 tablet (1 mg) by mouth 2 times daily. Days 1-3: 0.5 mg PO qDay, Days 4-7: 0.5 mg PO BID, Day 8 to end of treatment: 1 mg PO BID, If quitting is successful after 12 weeks, will continue another 12 weeks at 1 mg q12hr 60 tablet 2 024 2024 Discontinued(O ther) Varenicline Tartrate, Starter, (Chantix Starting ) 0.5 MG X 11 & 1 MG X 42 tablet therapy pack Take 1 Box by mouth Once per day. Initiate regimen 1 week before quit smoking day, Days 1-3: 0.5 mg PO qDay, Days 4-7: 0.5 mg PO BID, Day 8 to end of treatment: 1 mg PO BID, If quitting is successful after 12 weeks, will continue another 12 wee 1 each 024 2024 Discontinued(O ther) Menthol (Cepacol Sore Throat) 5.4 MG lozenge Dissolve 1 tablet in the mouth every 2 (two) hours if needed (sor throat). 20 lozenge 024 2024 Discontinued(O ther) cyclobenzaprine (Flexeril) 10 MG tablet Take 1 tablet (10 mg) by mouth if needed each day for muscle spasms. 10 tablet 1 024 2024 Discontinued(O ther) venlafaxine XR (Effexor XR) 150 MG 24 hr capsule Take 1 capsule (150 mg) by mouth Once daily. Take with food. Do not crush or chew capsule. 90 capsule 3 024 2024 Discontinued(R eorder (will not trigger notification to Pharmacy)) fluticasone (Flonase) 50 MCG/ACT nasal spray Administer 1-2 sprays into each nostril Once per day. Shake gently. Before first use, prime pump. After use, clean tip and replace cap.med as trial for 14 days no chronic use thanks 48 mL 2 2024 Discontinued(O ther) QUEtiapine (SEROquel) 300 MG tablet TAKE 2 TABLETS BY MOUTH AT BEDTIME. ALSO TAKE SEROQUEL 100MG EVERY MORNING AND EVERY NOON. 180 tablet 2024 Discontinued topiramate (Topamax) 25 MG tabletIndications :Chronic migraine without aura without status migrainosus, not intractable TAKE 1 TABLET (25 MG) BY MOUTH ONCE PER DAY. FOR MIGRAINE HEADACHES 30 tablet 1 2024 Discontinued rizatriptan (Maxalt) 10 MG tabletIndications :Chronic migraine without aura without status migrainosus, not intractable TAKE 1 TABLET BY MOUTH AT ONSET OF MIGRAINE AND LIE DOWN FOR AT LEAST 30 MINS. MAY REPEAT AFTER 2 HOURS IF NEEDED.MAX 3 TABS/24 HOURS 5 tablet 2024 Discontinued venlafaxine XR (Effexor XR) 150 MG 24 hr capsule TAKE 1 CAPSULE BY MOUTH EVERY DAY. TAKE WITH FOOD. DO NOT CRUSH OR CHEW CAPSULE. 90 capsule 2024 Discontinued(O ther) Active Problems Problem Noted Date Diagnosed Date Weight loss 05/29/2025 Dysphagia 05/29/2025 Dysuria 05/29/2025 Right elbow pain 07/05/2024 Assessment & Plan (07/05/2024 10:51 AM EST): Likely lateral epicondylitis. Continue brace, alyssa bandage, apply ice, activity modifications will change Meloxicam to Celebrex. Check x-ray and schedule for steroid injection by Dr. Grier. Allergic rhinitis 07/05/2024 Assessment & Plan (07/05/2024 10:53 AM EST): Work on smoking cessation. Blow nose. Restart cetrizine and Flonase. Poor memory 04/03/2023 Urinary incontinence 04/03/2023 Asthma 02/25/2023 Assessment & Plan (02/25/2023 6:45 AM EDT): Pt w uncontrolled asthma using albuterol BID -Will stop Advair and start Trelegy -advised to do mouth washes after use -prn albuterol -monitor at next visit. -Referred today to library science instructor for PFT and evaluation. Elevated alkaline phosphatase level 12/02/2022 Assessment & Plan (02/25/2023 7:03 AM EDT): -from recent labs in 10/2022 Alk phos 139---noted elevated as well mx times w PCP before up to 160s , normal LFTs -from chart review : pt had CT abd/pelvis 04/2022: Non specific heterogeneous appearance of osseous structures more in pelvis rec x MRI to exclude marrow replacement process -will repeat chem,will check GGT and refer today again x XR of coccys,leg were has pain -Referred today for abd US. -if alk phos still elevated w refer at next visit x MRI of pelvis based on previous CT -seems MRI was not performed before but requested today to [facility] today to check if MRI was done w PCP in [place] Assessment & Plan (12/02/2022 1:25 PM EDT): -from recent labs in 10/2022 Alk phos 139---noted elevated as well mx times w PCP before up to 160s , normal LFTs -from chart review : pt had CT abd/pelvis 04/2022: Non specific heterogeneous appearance of osseous structures more in pelvis rec x MRI to exclude marrow replacement process -will repeat chem,will check GGT and refer today x XR of coccys,leg were has pain -if alk phos still elevated w refer at next visit x MRI of pelvis based on previous CT -seems MRI was not performed before but requested today to [facility] today to check if MRI was done w PCP in [place] Cocaine use 12/02/2022 Assessment & Plan (10/05/2023 11:39 AM EDT): Has found Clonidine helpful to support abstinence Assessment & Plan (08/17/2023 11:33 AM EST): Has found Clonidine helpful to support abstinence, but she is still struggling. Would like to speak with riding coach and gives me permission to request a phone call. Also continue Clonidine 0.1 mg TID. Cautioned about dizziness. Assessment & Plan (06/21/2023 11:11 AM EST): Has found Clonidine very helpful to support abstinence. Will increase to Clonidine 0.1 mg TID. Cautioned about dizziness. Urged to also seek out behavioral supports. Assessment & Plan (05/20/2023 4:07 PM EST): Pt states she is using approx once weekly, has endorsed difficulty abstaining. Will start Clonidine 0.1 mg BID. Assessment & Plan (04/15/2023 5:46 PM EDT): Pt states she is using approx once weekly but would find it very difficult to stop, would like support for this. Reviewed with pt that this was certainly worsening her anxiety and sleep, and making her other psychiatric symptoms hard to control. States no alcohol or marijuana use, will need to explore other substances (opiates, PCP, etc.) Will refer to [employer]. Consider adding Clonidine 0.1 mg BID, but needs EKG first. Assessment & Plan (02/25/2023 6:58 AM EDT): Pt reports cocaine use hx -pt ok to have utox -encouraged to continue avoiding use -advised to reach substance abuse program -gave information today -pt interested to follow w program Assessment & Plan (12/02/2022 1:30 PM EDT): Pt reports cocaine use hx -last use 3 mo ago -pt ok to have utox today -encouraged to continue avoiding use -advised to reach substance abuse program -gave information today -pt interested to follow w program Hypothyroidism 12/02/2022 Assessment & Plan (02/25/2023 6:48 AM EDT): Pt w hx of hypothyroidism on levothyroxine 25 mcg seem before was on 50 mcg ? -last TSH was normal w low T4 -will repeat TFT and adjust med as needed - labs to be done today. Assessment & Plan (12/02/2022 1:31 PM EDT): Pt w hx of hypothyroidism on levothyroxine 25 mcg seem before was on 50 mcg ? -last TSH was normal w low T4 -will repeat TFT and adjust med as needed Kidney cysts 12/02/2022 Assessment & Plan (02/25/2023 6:47 AM EDT): From Previous PCP records pt w hx of renal cyst -will refer at future visit x abd US to eval renal cyst Assessment & Plan (12/02/2022 1:38 PM EDT): From Previous PCP records pt w hx of renal cyst -will refer at future visit x abd US to eval renal cyst Chronic migraine without aur a without status migrainosus, not intractable 10/19/2022 Assessment & Plan (12/28/2024 2:14 PM EDT): -description consistent w/ migraine headache -rx'd topamax -discussed proper use of maxalt -trigger avoidance advised along with optimizing sleep -headache red flags discussed: report to ED immediately if headache characteristics intensify within 5 mins of onset, if associated with intense nausea and vomiting or confusion -referred to neurology Assessment & Plan (07/07/2024 11:59 AM EST): Last PCP note as following: -tylenol prn ,pt used to be on butalbital/APAP,caffine before -advised pt x now to hold trizatriptan prn until evaluated by cardiology and CAD is r/o -Continue Mg PO - Refill rizatriptan for now although patient has not been seen by hospital medical biller yet - Optimize treatment for allergic rhinitis since it may be sinus headache. Assessment & Plan (02/25/2023 7:00 AM EDT): -Currently controlled -tylenol prn ,pt used to be on butalbital/APAP,caffine before -advised pt x now to hold trizatriptan prn until evaluated by cardiology and CAD is r/o -Start Mg PO - prescribed today. Assessment & Plan (12/02/2022 5:16 PM EDT): -Currently controlled -tylenol prn ,pt used to be on butalbital/APAP,caffine before -advised pt x now to hold trizatriptan prn( refilled today)until evaluated by cardiology and CAD is r/o Hx of fracture of lower leg 10/19/2022 Overview (10/19/2022): Right lower leg about 3 years ago Assessment & Plan (02/25/2023 6:55 AM EDT): Hx of fracture R lower leg 3 years ago with metal plates and screws. Associated pain and swelling per pt -no swelling noted here on exam. Treated with Gabapentin and cyclobenzaprine and meloxicam prn -continue meds x now. At last visit pt requested to decrease dose of Gabapentin to 600 mg from 800 mg because per pt it was too strong, but today is requesting to increase dose again because of a lack of effect. I explained to pt that she is on multiple meds, and is running the risk of side effects because of polypharmacy, but pt insists 800 mg works better for her pain, so increasing dose today. Advised pt not to drive, but pt says she doesn't drive. - meloxicam PRN for moderate pain -advised tylenol prn x now -will start w XR of right knee, leg and coccys X pain x 1 mo in area w no hx of trauma - orders printed again today. -may need orthopedic referral at next apt -I requested cane prescription to nursing staff - for R leg pain. Assessment & Plan (12/02/2022 5:20 PM EDT): Hx of fracture R lower leg 3 years ago with metal plates and screws. Associated pain and swelling per pt -no swelling noted here on exam. Treated with Gabapentin and cyclobenzaprine and meloxicam prn -continue meds x now -pt reports gabapentin 800 mg is too strong x her and request to reduce dose-px today 600 mg dose -advised to hold x now meloxicam ( refilled today) until evaluated by cardiology -advised tylenol prn x now -will start w XR of right knee, leg and coccys X pain x 1 mo in area w no hx of trauma -may need orthopedic referral at next apt Anxiety 10/19/2022 Mood disorder 10/19/2022 Assessment & Plan (11/18/2023 5:39 PM EDT): Differential includes PTSD; Schizoaffective Disorder (Depressed); Schizophrenia or other primary psychosis; MDD with Psychotic Features; SKYE-related psychosis (cocaine). Trauma hx with flashbacks and nightmares. Disordered sleep. [...] her well. She agrees with the plan. Assessment & Plan (10/05/2023 11:38 AM EDT): Differential includes PTSD; Schizoaffective Disorder (Depressed); Schizophrenia or other primary psychosis; MDD with Psychotic Features; SKYE-related psychosis (cocaine). Trauma hx with flashbacks and nightmares. Disordered sleep. Unlikely to be Bipolar Disorder, as pt denies ever experiencing anything that could be considered trip or hypomania. Auditory and visual hallucinations. Patient was not happy with switch from Seroquel to Risperidone, and is not sleeping well. Will now stop the Risperidone 1mg am and 5 mg at bedtime. Will start Seroquel 100 mg in am and noon, and Seroquel 300 mg 2 tabs (total dose 600 mg) at bedtime. Will continue consolidating and simplifying regimen. Stop Fluoxetine 20 mg daily. Increase to Venlafaxine XR 150 mg daily. Continue Clonidine 0.1 mg TID for sleep, anxiety, and cocaine cravings. Also continue Gabapentin 800 mg TID, New Rx sent to her pharmacy today. Continue with therapist as usual, and will be getting referral to agency psychiatric prescriber to transfer when I retire. Meanwhile, F/U with me in 4-6 weeks. She agrees with the plan. Assessment & Plan (08/17/2023 11:36 AM EST): Differential includes PTSD; Schizoaffective Disorder (Depressed); Schizophrenia or other primary psychosis; MDD with Psychotic Features; SKYE-related psychosis (cocaine). Trauma hx with flashbacks and nightmares. Disordered sleep. Unlikely to be Bipolar Disorder, as pt denies ever experiencing anything that could be considered trip or hypomania. Auditory and visual hallucinations. Doing better. Appreciate input of [facility] Pharmacist, will continue simplifying med regimen: Patient will stop Seroquel 400 mg at bedtime. Will continue Risperidone 1 mg in the morning, and increase to Risperidone 5 mg at bedtime. Continue Clonidine 0.1 mg TID for sleep, anxiety, and cocaine cravings. Decrease to Fluoxetine 20 mg daily (anticipate discontinuation at next visit). Continue Venlafaxine 75 mg daily. Also continue Gabapentin 800 mg TID (which she has been getting from PCP, but is also useful for anxiety and mood). Continue with therapist as usual, and will be getting referral to agency psychiatric prescriber to transfer when I retire. Meanwhile, F/U with me in 6 weeks. She agrees with the plan. Assessment & Plan (06/21/2023 11:15 AM EST): Differential includes PTSD; Schizoaffective Disorder (Depressed); Schizophrenia or other primary psychosis; MDD with Psychotic Features; SKYE-related psychosis (cocaine). Trauma hx with flashbacks and nightmares. Disordered sleep. Unlikely to be Bipolar Disorder, as pt denies ever experiencing anything that could be considered trip or hypomania. Auditory and visual hallucinations. Now doing better. Will continue current medications: Risperidone 1 mg in the morning, Risperidone 4 mg at bedtime. For now continue Seroquel 400 mg at bedtime. Continue Clonidine 0.1 mg TID for sleep, anxiety, and cocaine cravings. Continue Venlafaxine 75 mg daily, and Gabapentin 800 mg TID (which she has been getting from PCP, but is also useful for anxiety and mood). She will continue Fluoxetine 40 mg daily. Remain off Trazodone. For improved energy, suggest improving her diet and adding fruits and vegetables, and may take a multivitamin once daily. Continue with therapist as usual, and will be getting referral to agency psychiatric prescriber to transfer when I retire. Meanwhile, F/U with me in2 months. She agrees with the plan. Assessment & Plan (05/20/2023 4:06 PM EST): Differential includes PTSD; Schizoaffective Disorder (Depressed); Schizophrenia or other primary psychosis; MDD with Psychotic Features; SKYE-related psychosis (cocaine). Trauma hx with flashbacks and nightmares. Disordered sleep. Unlikely to be Bipolar Disorder, as pt denies ever experiencing anything that could be considered trip or hypomania. Auditory and visual hallucinations persist despite high dose antipsychotic (and other psychiatric medications). Has reported minimal improvement with med changes, although when provider informed patient today 05/20/2023 that I would be retiring, she said, But you have helped me so much! At this time will add am dose of Risperidone 1 mg, continue Risperidone 4 mg at bedtime. For now continue Seroquel 400 mg at bedtime. Add Clonidine 0.1 mg at bedtime and then BID for sleep, anxiety, and cocaine cravings. Will send new Rx for Venlafaxine 75 mg to resume once daily, and for Gabapentin 800 mg TID (which she has been getting from PCP, but is also useful for anxiety and mood). She will continue Fluoxetine 40 mg daily. Remain off Trazodone. Continue with therapist as usual, and suggest she speak with therapist about referral to agency psychiatric prescriber to transfer when I retire. Meanwhile, F/U with me in 1 month. She agrees with the plan. Assessment & Plan (04/15/2023 5:40 PM EDT): Differential includes PTSD; Schizoaffective Disorder (Depressed); Schizophrenia or other primary psychosis; MDD with Psychotic Features; SKYE-related psychosis (cocaine). Trauma hx with flashbacks and nightmares. Unlikely to be Bipolar Disorder, as pt denies ever experiencing anything that could be considered trip or hypomania. Severe depression, paranoia, auditory and visual hallucinations persist despite high dose antipsychotic (and other psychiatric medications). Reports minimal improvement with med changes, and although she has been advised twice to decrease from Seroquel 800 mg at bedtime to Seroquel 400 mg at bedtime she felt she couldn't sleep so continued taking Seroquel 800 mg at bedtime. Will continue simplifying and optimizing regimen. Increase to Risperidone 4 mg at bedtime. Continue Seroquel 400 mg ONLY 1 TAB at bedtime, even if she experiences transient insomnia. Trazodone 100 mg at bedtime does not seem to be helping her sleep or mood, will stop that now. May consider resuming in future once psychotic symptoms controlled. Taking Buspirone 15 mg only once daily, very unlikely to be helping her anxiety will stop that now. Consolidate Fluoxetine 20 mg BID to Fluoxetine 40 mg once daily. Continue Venlafaxine 75 mg daily (could increase in future). Taking Gabapentin 800 mg TID which is helpful for her pain so will continue that, therefore will not add additional antiepileptic as mood stabilizer. F/U with therapist as usual and with me in 3-4 weeks. She agrees with the plan. Assessment & Plan (02/25/2023 11:35 AM EDT): Differential includes PTSD; Schizoaffective Disorder (Depressed); Schizophrenia or other primary psychosis; MDD with Psychotic Features; SKYE-related psychosis (cocaine or other stimulant). Trauma hx with flashbacks and nightmares. Unlikely to be Bipolar Disorder, as pt denies ever experiencing anything that could be considered trip or hypomania. Severe depression, paranoia, auditory and visual hallucinations persist despite high dose antipsychotic (and other psychiatric medications). Had minimal improvement with starting dose of Risperidone 1 mg at bedtime, and although she was advised to decrease from Seroquel 800 mg at bedtime to Seroquel 400 mg at bedtime she couldn't sleep so increased again back to Seroquel 800 mg at bedtime. At this time will increase to Risperidone 2 mg at bedtime. Please do not change manner of taking meds without discussing with provider. Tolerating Venlafaxine 37.5 mg, will now increase to Venlafaxine 75 mg once daily with food. For now continue Fluoxetine 20 mg BID, but that could be consolidated as single daily dose. She is currently on Gabapentin 600 mg TID (for what indication?), but might do better with Depakote, Carbamazepine or Oxcarbazepine for irritability. For now will continue Buspirone 15 mg TID, although consider alternative treatment for anxiety. Clonidine would not be a good choice as she reports hx of low blood pressure. May also continue Trazodone 100 mg at bedtime, but may not be necessary if sedating antipsychotic is increased. Also consider Prazosin for nightmares (again being cognizant of low BP). Pt has been referred for counseling. Will F/U with me in 3-4 weeks. She agrees with the plan. Addendum: Note that after the visit was complete, provider reviewed UTOX obtained yesterday 02/24/2023 which was positive for opiates (but not Fentanyl) and positive for cocaine. Assessment & Plan (02/25/2023 7:02 AM EDT): Per Fred Conroy Differential includes PTSD; Schizoaffective Disorder (Depressed); Schizophrenia or other primary psychosis; no suspicion of Bipolar Disorder. -Following w psychotherapist, and continue following w psychopharm clinic. -Pt still taking Quetiapine 800 mg, despite recommendation by psychopharm to decrease to 400 mg, given it is difficult for her to sleep on lower dose. Already started Risperidone 1 mg HS, Venlafaxine 37.5 mg every day, Trazadone 100 mg every day, Buspirone 15 mg BID, and Fluoxetine 20 mg BID. -Pt has apt tomorrow w psychopharm. Assessment & Plan (02/08/2023 5:56 PM EDT): Differential includes PTSD; Schizoaffective Disorder (Depressed); Schizophrenia or other primary psychosis; MDD with Psychotic Features; SKYE-related psychosis (cocaine or other stimulant) although pt denies current use. Trauma hx with flashbacks and nightmares. Unlikely to be Bipolar Disorder, as pt denies ever experiencing anything that could be considered trip or hypomania. Severe depression, paranoia, auditory and visual hallucinations persist despite high dose antipsychotic (and other psychiatric medications). Will start Risperidone 1 mg at bedtime and decrease from Seroquel 800 mg at bedtime to Seroquel 400 mg at bedtime, with plan to cross titrate. Will start alternate antidepressant Venlafaxine 37.5 mg once daily with food. For now continue Fluoxetine 20 mg BID, but that could be consolidated as single daily dose. She is currently on Gabapentin 600 mg TID (for what indication?), but might do better with Depakote, Carbamazepine or Oxcarbazepine for irritability. For now will continue Buspirone 15 mg TID, although consider alternative treatment for anxiety. Clonidine would not be a good choice as she reports hx of low blood pressure. May also continue Trazodone 100 mg at bedtime, but may not be necessary if sedating antipsychotic is increased. Also consider Prazosin for nightmares (again being cognizant of low BP). Pt will be referred for counseling and F/U with me in 3 weeks. She agrees with the plan. Chronic constipation 10/19/2022 Assessment & Plan (02/25/2023 6:47 AM EDT): Reports chronic constipation -was following w GI in [place] but lost care and never had colonoscopy There is a mention in PCP note that pt had abdominal artery stenosis? But from surgeon kolton it was thought symptoms in her abdomen were associated with constipation and no vascular disease -diet changes advised -tried w metamucil w no improvement. Will prescribe today Colace. -if no improvement will try miralax at next visit -referred today to GI x management of chronic GI symptoms and screening colonoscopy - requested record to Renee Kiran Today to try to get record of CTA?? Done at [place] to confirm if actual had vascular abdominal dx? --per pt had workup at [facility] in [place], [place] --- not able to obtain. Assessment & Plan (12/02/2022 5:05 PM EDT): Reports chronic constipation -was following w GI in [place] but lost care and never had colonoscopy There is a mention in PCP note that pt had abdominal artery stenosis? But from surgeon kolton it was thought symptoms in her abdomen were associated with constipation and no vascular disease -diet changes advised -try w metamucil -if no improvement will try miralax at next visit -referred today to GI x management of chronic GI symptoms and screening colonoscopy - requested record to Renee Kiran Today to try to get record of CTA?? Done at [place] to confirm if actual had vascular abdominal dx? --per pt had workup at [facility] in [place], [place] Gastroesophageal reflux disease without esophagi tis 10/19/2022 Assessment & Plan (02/25/2023 6:46 AM EDT): -EGD 08/2022 Erythema in stomach ,scar in antrum suggestive of prior PUD s/P Bx - no report -continue for now famotidine -per pt had UGIB in 05/2022 - requested record to Renee Kiran To try to get EGD biopsy result done in 08/2022 -Referred to GI ---- requested to check status of referral to Renee Kiran Assessment & Plan (12/02/2022 5:08 PM EDT): -EGD 08/2022 Erythema in stomach ,scar in antrum suggestive of prior PUD s/P Bx - no report -continue for now famotidine -per pt had UGIB in 05/2022 - requested record to Renee Kiran To try to get EGD biopsy result done in 08/2022 -Referred today to GI Cigarette nicotine dependence without complicati on 10/19/2022 Assessment & Plan (04/15/2023 5:49 PM EDT): Improved with use of nicotine replacement therapy. Would like to try Chantix. Discussed with patient that we would consider that once we evaluated how she did after multiple med changes today. She says she understands the rationale and agrees. Assessment & Plan (02/25/2023 6:59 AM EDT): Started tobacco smoking 16 y of age until now ---1/2 PQT A day -smoking for 31 years --calc PQT a year 15.5 -advised in length to stop smoking -pt states she is feeling ready to stop. -offered today tobacco cessation program referral -pt agreed -referred today again. -Prescribed today nicotine lozanges and nicotine patches 14 mg for 6 wks, and will decrease to 7 mg at next apt. Assessment & Plan (12/02/2022 5:09 PM EDT): Started tobacco smoking 16 y of age until now ---1/2 PQT A day -smoking for 31 years --calc PQT a year 15.5 -advised in length to stop smoking -pt not yet ready to stop smoking -offered today tobacco cessation program referral -pt agreed -referred today -had prescribed recently nicotine lozanges prn as needed -states not covered by insurance ?-referred today to program Health care maintenance 10/19/2022 Assessment & Plan (02/25/2023 6:57 AM EDT): -menopause: 44 y of age -pap smear 07/2021 -record: NIL/HPV neg---per pt has hx of + HPV before and rec to repeat in 1 year pap smear --referred today to Adriano JonesMM: ( > 1 y ago per pt-no record found) -referred already -colonoscopy: never -referred already -annual labs done in 10/2022-Reviewed results today w pt, will check today chem, gn/ch urine ,urine x noted blood in urine before w neg ucx -vaccines: s/p covid 19x2 per pt -advised to bring record-no records found in review of records today-- s/p Bivalent x1, tdap 2022, p20, x smoking hx ----- Pt requests meds today to be sent to our pharmacy Assessment & Plan (12/02/2022 5:10 PM EDT): -menopause: 44 y of age -pap smear 07/2021 -record: NIL/HPV neg---per pt has hx of + HPV before and rec to repeat in 1 year pap smear --referred today to Adriano JonesMM: ( > 1 y ago per pt-no record found) -referred today -colonoscopy: never -referred today -annual labs done in 10/2022-Reviewed results today w pt, will check today chem, gn/ch urine ,urine x noted blood in urine before w neg ucx -vaccines: s/p covid 19x2 per pt -advised to bring record-no records found in review of records today--Bivalent dose today, tdap today,p20 today x smoking hx ----- For future refills of meds pt request to be sent to [facility] -updated now in system--explained pt that all meds sent here this time and fluoxetine sent to new px Resolved Problems Problem Noted Date Diagnosed Date Resolved Date Diabetes due to undrl condit ion w oth diabetic neuro comp 04/03/2023 04/03/2023 Mild intermittent asthma without complication 10/20/19 23 02/25/2023 Assessment & Plan (12/02/2022 1:07 PM EDT): Pt w uncontrolled asthma using albuterol BID -start Advair BID -advised to do mouth washes after use -prn albuterol -monitor at next visit Allergic conjunctivitis of b oth eyes and rhinitis 10/19/2022 04/03/2023 Generalized pruritus 10/19/2022 023 Encounters Date Type Department Care Team Description 05/29/2025 10:45 AM EST Office Visit [facility] [address] [place] [phone] Airam Romero MD Mood disorder ([facility]) (Primary Dx); Moderate persistent asthma, unspecified whether [...] phosphatase level; Cigarette nicotine dependence without complication 05/29/2025 Telephone [facility] [address] [place] [address] Mariola Arteaga RN VNA Referral 05/29/2025 Travel 05/28/2025 Telephone [facility] [address] [place] [address] Airam Romero MD chartprep 05/18/2025 Patient Outreach [facility] [address] [place] [address] Airam Romero MD Pre-visit Planning ([facility] screening was completed on 12/27/2024) 05/03/2025 Refill [facility] [address] [place], [place] [phone] Airam Romero MD 05/03/2025 Refill [facility] [address] [place] [address] Airam Romero MD Chronic migraine without aura without status migrainosus, not intractable 05/01/2025 1:45 PM EST Office Visit [facility] [address] [place] [address] Tarka, Cristel, OD Hypermetropia, bilateral (Primary Dx); Dry eyes, bilateral 05/01/2025 Travel 05/01/2025 Refill [facility] [address] [place] [address] Airam Romero MD 03/29/2025 Refill [facility] [address] [place] [address] Rossi Mota NP 03/29/2025 Refill [facility] [address] [facility] [place] [address] Airam Romero MD Hx of fracture of lower leg; Chronic migraine without aura without status migrainosus, not intractable 03/16/2025 Telephone [facility] [address] [facility] [place] [address] Airam Romero MD 03/16/2025 Refill [facility] [address] [facility] [place] [address] Airam Romero MD 03/09/2025 Refill [facility] [address] [facility] [place] [address] Rossi Mota NP Chronic migraine without aura without status migrainosus, not intractable 03/05/2025 Telephone [facility] [address] [facility] [place] [address] Airam Romero MD recall May. 03/02/2025 Results Follow-Up [facility] [address] [facility] [place] [address] Rossi Mota NP Magnesium, CBC auto differential, Basic Metabolic Panel, Additional followed-up results: 2 from Last 3 Months Immunizations Immunization Administration Dates Next Due HepB-CpG 05/29/2025,04/21/2024 Influenza injectable quadrivalent preservative f ree 04/02/2023 Influenza, seasonal, injectable, preservative fr ee 05/29/2025,04/21/2024 Pfizer Covid-19 Vaccine 12+ 05/29/2025 Pfizer Covid-19 Vaccine 12+ Bivalent 12/02/2022 Pneumococcal Conjugate PCV 20 12/02/2022 Tdap 12/02/2022 Family History Medical History Relation Name Comments DM2 Father DM2 , HTN Mother Relation Name Status Comments Father Mother Social History Tobacco Use Types Packs/Day Years [...] Orientation Straight 12/02/2022 9: 43 AM EDT Last Filed Vital Signs Vital Sign Reading Time Taken Comments Blood Pressure 90/70 05/29/2025 11:09 AM EST Pulse 80 05/29/2025 11:09 AM EST Temperature 36.2 C (97.1 F) 05/29/2025 11:09 AM EST Respiratory Rate 20 05/29/2025 11:09 AM EST Oxygen Saturation 98% 12/27/2024 11:27 AM EDT Inhaled Oxygen Concentration - - Weight 47.6 kg (105 lb) 05/29/2025 11:09 AM EST Height 149.9 cm (4' 11 ) 05/29/2025 11:09 AM EST Body Mass Index 21.21 05/29/2025 11:09 AM EST Plan of Treatment Upcoming Encounters Date Type Department Care Team (Late st Contact Info) Description 08/23/2025 1:15 PM EDT Office Visit [facility] [address], [place] [phone] Airam Romero MD [address] [place], [place] [phone] Health Maintenance Due Date Last Done Comments CT Colonography 1974 Colonoscopy 1974 Colorectal Cancer Screening 1974 FIT DNA/Cologuard 1974 FIT 1974 FOBT 1974 Sigmoidoscopy 1974 Family Planning (PISQ) 1989 Mammogram 2014 RSV Patients and Patients Aged 60 years or older (1 - Risk 50-74 years 1-dose series) 2024 Zoster Vaccines (1 of 2) 2024 Depression Monitoring 06/29/2025 12/27/2024, 025 Alcohol/Substance Use Screening 12/27/2025 12/27/2024 Disability Screening 12/27/2025 12/27/2024 SDOH Screening 12/27/2025 12/27/2024 Cervical Cancer Screening 04/05/2026 HPV/Cotest 04/05/2026 04/05/2023 Pap Smear 04/05/2026 04/05/2023 Tobacco Screening 05/29/2026 05/29/2025 Lipid Panel 10/21/2027 10/20/2022 DTaP/Tdap/Td Vaccines (2 - Td or Tdap) 12/02/2032 12/02/2022 HIV Screening Completed 10/20/2022 Hepatitis C Screening Completed 10/20/2022 Pneumococcal Vaccine: 50+ Years Completed 12/02/2022 COVID-19 Vaccine Completed 05/29/2025, 01/2024, 04/03/2023, Additional history exists Hepatitis B Vaccines Completed 05/29/2025, 04/21/20 24 Influenza Vaccine Completed 05/29/2025, , 04/02/2023 HIB Vaccines Aged Out No longer eligi ble based on patient's age to complete this topic HPV Vaccines Aged Out No longer eligi ble based on patient's age to complete this topic Hepatitis A Vaccines Aged Out No long er eligible based on patient's age to complete this topic IPV Vaccines Aged Out No longer eligi ble based on patient's age to complete this topic Meningococcal B Vaccine Aged Out No l onger eligible based on patient's age to complete this topic Meningococcal Vaccine Aged Out No kym danisha eligible based on patient's age to complete this topic RSV under 20 months Aged Out No longe r eligible based on patient's age to complete this topic Rotavirus Vaccines Aged Out No longer eligible based on patient's age to complete this topic Goals Goal Patient Goal Type Associated Problems Recent Progress Patient-Stated? Author Patient will adhere to medication regimen General Rosy Wilson Keep your medical appointments Lifestyle No Rosy Nunes Procedures Procedure Name Priority Date/Time Associated Diagnosis Comments HEMOGLOBIN A1C Routine 05/29/2025 1:29 PM EST Annual physical exam POCT URINALYSIS DIPSTICK Routine 05/29/2025 12:20 PM EST Dysuria URINALYSIS, COMPLETE, WITH REFLEX TO CULTURE Routine 05/29/2025 11:30 AM EST Dysuria HPV MRNA E6/E7 REFLEX TO HPV 16, 18/45 Routine 04/05/2023 1:54 PM EDT PAP SMEAR Routine 04/05/2023 1:54 PM EDT HEPATITIS C AB W/REFL TO HCV RNA, QN, PCR Routine 10/20/2022 10:20 AM EDT Health care maintenance HIV 1/2 ANTIGEN/ANTIBODY, FOURTH GENERATION W/RFL Routine 10/20/2022 10:20 AM EDT Health care maintenance LIPID PANEL, STANDARD Routine 10/20/2022 10:20 AM EDT Health care maintenance from Last 3 Months or Most Recently Relevant to Health Maintenance Results * Hemoglobin A1c (05/29/2025 1:29 PM EST) Hemoglobin A1c 5.3 <6.0 % [facility] Comment:Hemoglobin A1C Refer ence Range Adults: 4.8 - 6.0 % Non diabetic: < 6.0 % Goal: < 7.0 %Additional Action Suggested: > 8.0 %Note: Hemoglobin A1c results are invalid for patients with abnormal amounts of HbF. Blood transfusions may impact the HbA1c concentration in the patient sample. Estimated Average Glucose 105 mg/dL [facility] Comment:eAG = Estimated ave rage glucose which is %A1C expressed asaverage glucose, using the formula of the P7Y-NnaymjsTisxryf Glucose study (ADAG), Diabetes Care, Vol.31,#8,Jan. 2007 Blood Venous blood specimen / Unknown 05/29/2025 1:29 PM EST 05/29/2025 4:04 PM EST us Airam Elkins MD LAB BLOOD ORDERAB LES Final Result [facility] [address] [place] [phone] * (ABNORMAL) POCT Urinalysis (05/29/2025 12:20 [...] Media Lot # [id number] Lot# Expiration Date , Urine (Urine, Random) 05/29/2025 12:20 PM EST Airam Elkins MD POINT OF CARE ZAHIRA T ENTER/EDIT ORDERABLES Final Result * HPV mRNA E6/E7 w/Reflex to HPV Genotypes 16, 18/45 (04/05/2023 1:54 PM EDT) HPV nRNA E6/E7 Not Detected Not Detected [facility] Comment:Methodology: Transcr iption-Mediated AmplificationThis assay detects E6/E7 viral messenger RNA (mRNA) from 14high-risk HPV types (16,18,31,33,35,39,45,51,52,56,58,59,66,68).Cervical sources are required for HPV testing.If a vaginal source from a patient who has had atotal hysterectomy with removal of cervix wassubmitted, please contact the testing laboratoryfor alternative testing options.For additional information, please refer tohttp://education.Novus/faq/VMJ030f0(This link if provided for information/educational purposes only.)THIS TEST WAS PERFORMED AT:[facility] [place] [phone] CRUM MD HPV mRNA E6/E7 [facility] HPV 16 RNA [facility] HPV 18/45 RNA [facility] 04/05/2023 1:54 PM EDT 04/06/2023 7:00 AM EDT Adriano Hitchcock [facility] CYTOLOGY ORDERABLES F inal Result [facility] [address] [place] [phone] * Pap Smear (04/05/2023 1:54 PM EDT) 04/05/2023 1:54 PM EDT 04/06/2023 7:00 AM EDT Narrative [facility] - 04/09/2023 11:37 AM EDT ----- ------- Name: Cristel Cobian Age/Sex: 47/F [facility] 1975 [id number] [id number] Attend Dr: ADRIANO HITCHCOCK CNM Re04/05/23 Status: DEP [facility] ----- ------- SPEC : [id number] RECD: 04/06/23 STATUS: STAN INFANTE NUM: [id number] KEIRY: 04/05/234 [facility] DR: ADRIANO HITCHCOCK ENTERED: 04/06/23 SP TYPE: Pap Smr OTHR DR: ORDERED: Pap Smear, PAP path review Interpretation General Category: Epithelial cell abnormality. Adequacy: Endocervical component present. Interpretation: Atypical squamous cells of undetermined significance. HPV mRNA E6/E7: Not Detected This assay detects E6/E7 viral messenger RNA (mRNA) from 14 high-risk HPV types (16, 18, 31, 33, 35, 39, 45, 51, 52, 56, 58, 59, 66, 68) HPV testing performed by [facility], [place], [place]. See reference laboratory portion of the EMR for entire report. Clinical Information LMP: Unknown date Previous PAP test: Unknown date, WNL Other history: Previous pap NIL/HPV neg, preceded by ASCUS/HPV neg Material Received ThinPrep-Cervical ----- ------- Signed (signature on file) Carla Parker 04/09/23 1137 ----- ------- END OF REPORT Adriano Hitchcock [facility] CYTOLOGY ORDERABLES F inal Result Performing Organization Address City/[facility]/ZIP Co de Phone Number [address] [phone] * Hepatitis C Antibody with Reflex to HCV, RNA, Quantitative, Real-Time PCR (10/20/2022 10:20 AM EDT) Pathologist [facility] Hepatitis C Antibody NON-REACT MELISSA NON-REACT MELISSA [facility] [place] [facility] Index 0.05 <1.00 [facility] Comment: HCV antibody was non-reactive. There is no laboratory evidence of HCV infection. In most cases, no further action is required. However, if recent HCV exposure is suspected, a test for HCV RNA (test code 35215) is suggested. For additional information please refer to http://education.tvCompass.NoiseFree/faq/ZZC26q0 (This link is being provided for informational/ educational purposes only.) Blood Venous blood specimen / Unknown 10/20/2022 10:20 AM EDT 10/20/2022 10:21 AM EDT Narrative [facility] - 10/21/2022 1:01 PM EDT FASTING:YES FASTING: YES Consuelo Kelly [facility] LAB BLOOD ORDERABLES Final Result [facility] [address], [place] [address] [facility] [place] [facility] [address] [place] [phone] * HIV-1/2 Antigen and Antibodies, Fourth Generation, with Reflexes (10/20/2022 10:20 AM EDT) HIV Antigen/Antibody, 4th Generation NON-REAC TIVE NON-REAC TIVE [facility] [place] [facility] Comment: HIV-1 antigen and HIV-1/HIV-2 antibodies were not detected. There is no laboratory evidence of HIV infection. PLEASE NOTE: This information has been disclosed to you from records whose confidentiality may be protected by state law. If your state requires such protection, then the state law prohibits you from making any further disclosure of the information without the specific written consent of the person to whom it pertains, or as otherwise permitted by law. A general authorization for the release of medical or other information is NOT sufficient for this purpose. For additional information please refer to http://education.Novus/faq/XKE387 (This link is being provided for informational/ educational purposes only.) The performance of this assay has not been clinically validated in patients less than 2 years old. Blood Venous blood specimen / Unknown 10/20/2022 10:20 AM EDT 10/20/2022 10:21 AM EDT Narrative [facility] - 10/21/2022 1:01 PM EDT FASTING:YES FASTING: YES Consuelo Kelly [facility] LAB BLOOD ORDERABLES Final Result [facility] [address], [place] [phone] [facility] [place] [facility] [address] [place] [phone] * Lipid Panel, Standard (10/20/2022 10:20 AM EDT) Cholesterol, Total 171 <200 mg/dL [facility] [place] [facility] HDL Cholesterol 54 > OR = 50 mg/dL [facility] [place] [facility] Triglycerides 109 <150 mg/dL [facility] [place] [facility] LDL Cholesterol 96 mg/dL (calc) [facility] [place] [facility] Comment: Reference range: <100 Desirable range <100 mg/dL for primary prevention; <70 mg/dL for patients with CHD or diabetic patients with > or = 2 CHD risk factors. LDL-C is now calculated using the Yoko calculation, which is a validated novel method providing better accuracy than the Friedewald equation in the estimation of LDL-C. Brendan SS et al. BONNIE. 2013;310(19): 3018-2094 (http://education.Bebo/faq/QFB414) Chol/HDLC Ratio 3.2 <5.0 (calc) [facility] [place] [facility] Non-HDL Cholesterol 117 <130 mg/dL (calc) [facility] [place] [facility] Comment: For patients with diabetes plus 1 major ASCVD risk factor, treating to a non-HDL-C goal of <100 mg/dL (LDL-C of <70 mg/dL) is considered a therapeutic option. Blood Venous blood specimen / Unknown 10/20/2022 10:20 AM EDT 10/20/2022 10:21 AM EDT Narrative [facility] - 10/21/2022 1:01 PM EDT FASTING:YES FASTING: YES Consuelo Kelly [employer] LAB BLOOD ORDERABLES Final Result [facility] [address], [place] [phone] [facility] [place] [facility] [address] [place] [phone] from Last 3 Months or Most Recently Relevant to Health Maintenance Insurance [facility] C3 Care Teams Front Desk Administrator Relationship Specialty Start Date End Date Airam oRmero MD [address] [place], [place] [phone] PCP - General Internal Medicine 12/16/22 Fred Dotson FNP [address] [place] [address] Nurse Practitioner Family Medicine 05/10/23
--- OUTSIDE RECORDS SUMMARY | 2025-05-29 17:01 | XMS_ITS | Encounter Summary ---
Author Organization [employer] Address [address] [facility] 7t [place] [address] Care Team Providers Care Seamer Name Role Phone Airam Romero MD Primary Care Pro vider Fred Dotson Unavailable Unavailable Reason for Visit * Reason Onset Date Comments VNA Referral 05/29/2025 Encounter Details Date Type Department Care Team (Late st Contact Info) Description 05/29/2025 Telephone [facility] [address] [place], [place] [phone] Mariola Arteaga, RN [address] [place] [address] VNA Referral Social History Tobacco Use Types Packs/Day Years [...] encounter Miscellaneous Notes * Telephone Encounter - Mariola Arteaga RN - 05/29/2025 12:54 PM EST Referral packet generated and placed on PCPs desk, pending signature. Please assist pt with VNA for help medications ,pt w poor memory ,in current evaluation for weightloss and multiple complaints Thanks documented in this encounter Plan of Treatment Upcoming Encounters Date Type Department Care Team (Late st Contact Info) Description 08/23/2025 1:15 PM EDT Office Visit [facility] [address] [place] [address] [phone] Airam Romero MD [address] [place], [place] [phone] documented as of this encounter Goals Goal Patient Goal Type Associated Problems Recent Progress Patient-Stated? Author Patient will adhere to medication regimen General No Rosy Nunes Keep your medical appointments Lifestyle No Cardar[place] , [place] documented as of this encounter Visit Diagnoses Not on filedocumented in this encounter Additional Health Concerns Assessment Noted Time PHQ-9 Depression Total Score: 25 025 4:23 PM EST documented as of this encounter Care Teams Seamer Relationship Specialty Start Date End Date Airam Romero MD [address] [place] [address] PCP - General Internal Medicine 12/16/22 Fred Dotson FNP [address] [place] [address] Nurse Practitioner Family Medicine 05/10/23 documented as of this encounter
--- OUTSIDE RECORDS SUMMARY | 2025-05-29 17:01 | XMS_ITS | Encounter Summary ---
Author Organization [employer] Address 75 [facility] 7t [place] [address] Care Team Providers Care Facing Cutting Machine Operator Name Role Phone Airam Romero MD Primary Care Pro vider Fred Dotson Unavailable Unavailable Reason for Visit * Reason Comments Med Refill Encounter Details Date Type Department Care Team ([facility] Contact Info) Description 12/09/2022 Refill [facility] [address] [place] [address] Consuelo Kelly FNP Hx of fracture of lower leg; Chronic constipation Social History Tobacco Use Types Packs/Day Years Used Date Smoking Tobacco: Every Day Cigarettes 0.5 20 Passive Smoke Exposure: Current Smokeless Tobacco: Never Comments:Started tobacco smo shanon 16 y of age until now ---1/2 PQT A day -smoking for 31 years --calc PQT a year 15.5 Alcohol Use Standard Drinks/Week Comments Not Currently 0 (1 standard drink = 0.6 oz pur e alcohol) Comments Unknown Sex and Gender Information Value Date Recorded Sex Assigned at Female 10/19/2022 1:50 PM EDT Legal Sex Female 1:41 PM EDT Gender Identity Female 10/19/2022 1:50 PM EDT Sexual Orientation Straight 12/02/2022 9: 43 AM EDT COVID-19 Exposure Response Date Recorded In the last 10 days, have yo u been in contact with someone who was confirmed or suspected to have Coronavirus/COVID-19? No / Unsure 12/02/2022 9:02 AM EDT documented as of this encounter Plan of Treatment Upcoming Encounters Date Type Department Care Team ([facility] Contact Info) Description 08/23/2025 1:15 PM EDT Office Visit [facility] 230 [place] [address] Airam Romero MD [address] [place] [address] documented as of this encounter Visit Diagnoses Diagnosis Hx of fracture of lower leg Chronic constipation Unspecified constipation documented in this encounter Additional Health Concerns Assessment Noted Time PHQ-9 Depression Total Score: 9 12/03/19 9:46 AM EDT documented as of this encounter Care Teams Facing Cutting Machine Operator Relationship Specialty Start Date End Date Airam Romero MD [address] [place] [address] PCP - General Internal Medicine 12/16/22 Fred Dotson FNP [address] [place] [address] Nurse Practitioner Family Medicine 05/10/23 documented as of this encounter
--- OUTSIDE RECORDS SUMMARY | 2025-05-29 17:01 | XMS_ITS | Patient Health Record ---
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) Active confirmed Problem Mixed hyperlipidemia (907284998) Mixed hyperlipidemia (E78.2) Active confirmed Problem Tobacco user (545224780) Nicotine dependence, cigarettes, uncomplicated (F17.210) Active confirmed Problem Insomnia (752882536) Insomnia, unspecified (G47.00) Active confirmed Problem Insomnia (644846016) Insomnia due to medical condition (G47.01) Active confirmed Problem Essential hypertension (72470567) Essential (primary) hypertension (I10) Active confirmed Problem Acute upper respiratory infection (88703571) Acute upper respiratory infection, unspecified (J06.9) Active confirmed Problem Acute severe exacerbation of mild persistent asthma (disorder) (795334865) Mild persistent asthma with status asthmaticus (J45.32) Active confirmed Problem Cough (71028904) Cough (R05) Active confirmed Problem Adult health examination (776606211) Encounter for general adult medical examination without [...] Insured Coverage Start Date Coverage End Date [facility] [address] [address] [place] [address] [id number] Cristel Lepe Self - patient is the insured Medical (General) History Medical History History ICD Code diabetes, type II asthma arthritis insonmia Surgical History Surgery Date(Month/Year) Galbladder tonsillectomy tubal ligation 2007
--- OUTSIDE RECORDS SUMMARY | 2025-05-29 17:01 | XMS_ITS | Encounter Summary ---
Author Organization [employer] Address 75 [facility] 7t [place] [address] Care Team Providers Care Open Claims Representative Name Role Phone Airam Romero MD Primary Care Pro vider Fred Dotson Unavailable Unavailable Reason for Visit * Reason Comments Med Refill Encounter Details Date Type Department Care Team (Late st Contact Info) Description 12/03/2024 Refill [facility] [address] [place], [place] [phone] Des Jenkins MD [address] [place] [address] Hx of fracture of lower leg Social History Tobacco Use Types Packs/Day Years [...] Answer Date Recorded Patient Health Questionnaire-9 Score 12 11/18/2023 Patient Health Questionnaire-9 Score 12 11/18/2023 Last PHQ-9: Questionnaire Data Not on file 0 11/18/2023 Housing Stability Answer Date Recorded What is [...] got money to buy more: Sometimes True 2023 Within the past 12 months,th e food you bought just didn't last and you didn't have enough money to get more: Sometimes True 10/11/2023 Transportation Answer Date Recorded In the past 12 months, has l ack of transportation kept you from medical appts, meetings, work or from getting things needed for daily living? Yes, it has kept me from medical appointments or getting medications. 10/11/2023 Utilities Answer Date Recorded In the past 12 months, has t he [employer], gas, oil or water company threatened to shut off services in your home? No 03/29/2023 Depression Answer Date Recorded Patient Health Questionnaire-2 Score 5 11/18/2023 Comments No Sex and Gender Information Value [...] Description 08/23/2025 1:15 PM EDT Office Visit [facility] [address] [place] [address] [phone] Airam Romero MD [address] [place] [address] documented as of this encounter Goals Goal Patient Goal Type Associated Problems Recent Progress Patient-Stated? Author Patient will adhere to medication regimen General No Rosy Nunes Keep your medical appointments Lifestyle No Rosy Nunes documented as of this encounter Visit Diagnoses Diagnosis Hx of fracture of lower leg documented in this encounter Additional Health Concerns Assessment Noted Time PHQ-9 Depression Total Score: 12 024 3:49 PM EDT documented as of this encounter Care Teams Open Claims Representative Relationship Specialty Start Date End Date Airam Romero MD [address] [place] [address] PCP - General Internal Medicine 12/16/22 Fred Dotson FNP [address] [place] [address] Nurse Practitioner Family Medicine 05/10/23 documented as of this encounter
--- OUTSIDE RECORDS SUMMARY | 2025-05-29 17:01 | XMS_ITS | Patient Health Record ---
Author Organization [facility] Primary Care Address [address] [place] [address] Care Team Providers Care Change Director Name Role Phone Not Selected, Physician Unavailable Unavaila ble Migration, Provider Unavailable Unavailable Reason For Referral No Information Medications Medication SIG (Take, Route, Frequency, Duration) Notes Start Date End Date Status Pain Reliever 500 mg tablet *Pick strength-form from [facility]* 05/01/2019 Active fluticasone propionate 50 mcg/actuation nasal spray,suspension *Reorder from [facility] and Interaction Alerts* 03/27/2020 Active Gabapentin 600 mg tablet 04/12/2019 Active buspirone 15 mg tablet *Reorder from [facility] and Interaction Alerts* 09/25/2019 Active pantoprazole 40 mg tablet,delayed release (DR/EC) *Reorder from [facility] and Interaction Alerts* 03/13/2020 Active Tylenol Extra Strength 500 mg tablet 05/01/2019 Active Suphedrine 30 mg tablet *Reorder from [facility] and Interaction Alerts* 03/27/2020 Active Topamax 25 mg tablet 04/12/2019 Active HYDROcodone-Acetaminoph en 5-325 mg tablet 03/27/2020 Active quetiapine 400 mg tablet *Reorder from [facility] and Interaction Alerts* 09/25/2019 Active Azithromycin 250 mg tablet 04/01/2020 Active Augmentin 500-125 mg tablet 03/13/2020 Active SUMAtriptan Succinate 50 mg tablet 09/25/2019 Active PROzac 40 mg capsule 09/25/2019 Active Trazodone HCl 100 MG Tablet *Reorder from [facility] and Interaction Alerts* 09/25/2019 Active OLANZapine 10 mg tablet 10/10/2018 Active blood-glucose meter misc *Reorder from [facility] and Interaction Alerts* 05/01/2019 Active Mobic 7.5 mg tablet *Reorder fro [facility] and Interaction Alerts* 09/25/2019 Active Famotidine 20 mg tablet 03/15/2020 Active Sucralfate 1 gram tablet *Pick strength-form from [facility]* 03/13/2020 Active atorvastatin 10 mg tablet *Reorder from [facility] and Interaction Alerts* 01/26/2019 Active tizanidine 4 mg tablet *Reorder from [facility] and Interaction Alerts* 03/13/2020 Active butalbital-acetaminophe n-caff 50-325-40 mg capsule *Reorder from [facility] and Interaction Alerts* 01/26/2019 Active CYCLOBENZAPRINE 10MG TABLETS *Reorder from [facility] and Interaction Alerts* 06/04/2020 Active blood sugar diagnostic strip *Reorder from [facility] and Interaction Alerts* 05/01/2019 Active Loratadine 10 mg tablet 03/13/2020 Active Diclofenac Sodium 75 mg tablet,delayed release (DR/EC) *Pick strength-form from [facility]* 09/25/2019 Active BUSPIRONE 15MG TABLETS *Reorder from [facility] and Interaction Alerts* 06/04/2020 Active Lancets 30 gauge misc 05/01/2019 Active Claritin 10 mg tablet 09/26/2019 Active Problems Problem Type SNOMED Code ICD Code Onset Dates Problem Status W/U Status Risk Notes Problem Malignant tumor of urinary bladder (112487008) Malignant neoplasm of bladder, unspecified (C67.9) Active confirmed Problem Hypothyroidism (26749582) Hypothyroidism, unspecified (E03.9) 05/01/20 19 Active confirmed Problem Type II diabetes mellitus without complication (768183894) Type 2 diabetes mellitus without complications (E11.9) Active confirmed Problem Bipolar disorder (27144235) Bipolar disorder, unspecified (F31.9) 05/18/20 19 Active confirmed Problem Lumbar radiculopathy (570947815) Radiculopathy, lumbar region (M54.16) Active confirmed Problem Low back pain (740633434) Low back pain (M54.5) Active confirmed Problem Headache (04252456) Headache (R51) Active confirmed Encounters Encounter Location Date Provider Diagnosis [facility] Primary Care [address] [place] [address] 08/26/2024 Provider Migration [facility] Primary Care [address] [place] [address] 08/27/2024 Provider Migration Plan Of Treatment No Information Insurance Providers Payer Name Payer Address Payer Phone Subscriber Number Group Number Insured Name Patient Relationship to Insured Coverage Start Date Coverage End Date [facility] [address] [address] [place] [address] [id number] LUZMA NGUYỄN Self - patient is the insured
--- OUTSIDE RECORDS SUMMARY | 2025-05-29 17:02 | XMS_ITS | Encounter Summary ---
Author Organization [employer] Address 75 [facility] 7t [place] [address] Care Team Providers Care Presetter Operator Name Role Phone Airam Romero MD Primary Care Pro vider Fred Dotson Unavailable Unavailable Reason for Visit * Reason Comments Med Refill Encounter Details Date Type Department Care Team (Late st Contact Info) Description 11/17/2023 Refill [facility] [address] [place] [address] Fred Dotson FNP Social History Tobacco Use Types Packs/Day Years [...] AM EDT documented as of this encounter Functional Status * Over the past 2 weeks, how often have you been bothered by any of the following problems? Question Answer Date of Assessment Author Patient Health Questionnaire -2 Score 5 11/18/2023 3:49 PM EDT Melonie Elkins MA * How difficult have these problems made it for you to do your work, take care of things at home, or get along with other people? Answer Date of Assessment Author Very difficult 11/18/2023 3:49 PM EDT Janessa Elkins MA * Over the past 2 weeks, how often have you been bothered by any of the following problems? Question Answer Date of Assessment Author Little interest or pleasure in doing things Nearly every day 11/18/2023 3:49 PM EDT Janessa Elkins MA Feeling down, depressed, or hopeless More than half the days 11/18/2023 3:49 PM EDT Janessa Elkins MA Trouble falling or staying asleep, or sleeping too much More than half the days 11/18/2023 3:49 PM EDT Janessa Elkins MA Feeling tired or having little energy Several days 11/18/2023 3:49 PM EDT Janessa Elkins MA Poor appetite or overeating More than half the days 11/18/2023 3:49 PM EDT Janessa Elkins MA Feeling bad about yourself - or that you are a failure or have let yourself or your family down Several days 11/18/2023 3:49 PM EDT Janessa Elkins MA Trouble concentrating on things, such as reading the newspaper or watching television Several days 11/18/2023 3:49 PM EDT Janessa Elkins MA Moving or speaking so slowly that other people could have noticed? Or the opposite - being so fidgety or restless that you have been moving around a lot more than usual. Not at all 11/18/2023 3:49 PM EDT Janessa Elkins MA Thoughts that you would be better off or hurting yourself in some way Not at all 11/18/2023 3:49 PM EDT Janessa Elkins MA Patient Health Questionnaire-9 Score 12 11/18/2023 3:49 PM EDT Janessa Elkins MA documented as of this encounter Plan of Treatment Upcoming Encounters Date Type Department Care Team (Late st Contact Info) Description 08/23/2025 1:15 PM EDT Office Visit [facility] MEDICINE [address] [place] [address] [phone] Airam Romero MD [address] [place] [phone] documented as of this encounter Goals Goal Patient Goal Type Associated Problems Recent Progress Patient-Stated? Author Patient will adhere to medication regimen General No Rosy Nunes Keep your medical appointments Lifestyle No Rosy Nunes documented as of this encounter Visit Diagnoses Not on filedocumented in this encounter Additional Health Concerns Assessment Noted Time PHQ-9 Depression Total Score: 14 024 9:54 AM EDT documented as of this encounter Care Teams Presetter Operator Relationship Specialty Start Date End Date Airam Romero MD [address] [place] [address] PCP - General Internal Medicine 12/16/22 Fred Dotson FNP [address] [place] [address] Nurse Practitioner Family Medicine 05/10/23 documented as of this encounter
--- OUTSIDE RECORDS SUMMARY | 2025-05-29 17:02 | XMS_ITS | Encounter Summary ---
Author Organization [employer] Address [address] [facility] 7t [place] [address] Care Team Providers Care Practice Lead Name Role Phone Airam Romero MD Primary Care Pro vider Fred Dotson Unavailable Unavailable Reason for Visit * Reason Onset Date Comments Call Back Request 04/26/2023 Encounter Details Date Type Department Care Team ([facility] st Contact Info) Description 04/26/2023 Telephone [facility] [address] [place], [place] [phone] Airam Romero MD [address] [place] [address] Call Back Request Social History Tobacco Use [...] an appointment for tomorrow (04/27) Please contact [facility] at [phone] documented in this encounter Plan of Treatment Upcoming Encounters Date Type Department Care Team (Late st Contact Info) Description 08/23/2025 1:15 PM EDT Office Visit [facility] MED[facility] [address] [place] [phone] Airam Romero MD [address] [place] [address] documented as of this encounter Goals Goal [...] documented as of this encounter Care Teams Practice Lead Relationship Specialty Start Date End Date Airam Romero MD [address] [place] [address] PCP - General Internal Medicine 12/16/22 Fred Dotson FNP [address] [place] [address] Nurse Practitioner Family Medicine 05/10/23 documented as of this encounter
--- OUTSIDE RECORDS SUMMARY | 2025-05-29 17:02 | XMS_ITS | Encounter Summary ---
Author Organization [employer] Address [address] [facility] 7t [place] [address] Care Team Providers Care Rn Case Management Name Role Phone Airam Romero MD Primary Care Pro vider Fred Dotson Unavailable Unavailable Reason for Visit * Reason Comments Med Refill Encounter Details Date Type Department Care Team (Late st Contact Info) Description 05/04/2023 Refill [facility] [address] [place] [address] Fred Dotson FNP Social History Tobacco Use [...] Description 08/23/2025 1:15 PM EDT Office Visit [facility] [address] [place] [address] Airam Romero MD [address] [place] [address] documented as of this encounter Goals Goal [...] documented as of this encounter Care Teams Rn Case Management Relationship Specialty Start Date End Date Airam Romero MD [address] [place] [address] PCP - General Internal Medicine 12/16/22 Fred Dotson FNP [address] [place] [address] Nurse Practitioner Family Medicine 05/10/23 documented as of this encounter
--- OUTSIDE RECORDS SUMMARY | 2025-05-29 17:02 | XMS_ITS | Encounter Summary ---
Author Organization [employer] Address [address] [facility] 7t [place] [address] Care Team Providers Care Billing Coordinator Name Role Phone Airam Romero MD Primary Care Pro vider Fred Dotson Unavailable Unavailable Reason for Visit * Reason Comments Med Refill Encounter Details Date Type Department Care Team (Late st Contact Info) Description 11/10/2023 Refill [facility] [address] [place] [address] Fred Dotson FNP Social History Tobacco Use [...] Answer Date Recorded Patient Health Questionnaire-9 Score 14 10/05/2023 Patient Health Questionnaire-9 Score 14 10/05/2023 Last PHQ-9: Questionnaire Data Not on file 0 10/05/2023 Housing Stability Answer Date Recorded What is [...] Answer Date Recorded Patient Health Questionnaire-2 Score 4 10/05/2023 Comments No Sex and Gender Information Value [...] Description 08/23/2025 1:15 PM EDT Office Visit [facility] [address] [place] [address] Airam Romero MD [address] [place] [address] documented as of this encounter Goals Goal [...] documented as of this encounter Care Teams Billing Coordinator Relationship Specialty Start Date End Date Airam Romero MD [address] [place] [address] PCP - General Internal Medicine 12/16/22 Fred Dotson FNP [address] [place] [address] Nurse Practitioner Family Medicine 05/10/23 documented as of this encounter
--- OUTSIDE RECORDS SUMMARY | 2025-05-29 17:02 | XMS_ITS | Encounter Summary ---
Author Organization [employer] Address 75 [facility] 7t [place] [address] Care Team Providers Care Tin Worker Name Role Phone Airam Romero MD Primary Care Pro vider Fred Dotson Unavailable Unavailable Reason for Visit * Reason Comments Med Refill Encounter Details Date Type Department Care Team (Late st Contact Info) Description 08/11/2023 Refill [facility] [address] [place] [address] Fred Dotson FNP Social History Tobacco Use [...] Answer Date Recorded Patient Health Questionnaire-9 Score 11 06/21/2023 Patient Health Questionnaire-9 Score 11 06/21/2023 Last PHQ-9: Questionnaire Data Not on file 0 06/21/2023 Housing Stability Answer Date Recorded What is [...] Date Recorded Patient Health Questionnaire-2 Score 4 06/21/2023 Comments No Sex and Gender Information Value [...] Description 08/23/2025 1:15 PM EDT Office Visit [facility] MED[facility] [address] [place] [address] Airam Romero MD [address] [place] [address] documented as of this encounter Goals Goal Patient Goal Type Associated Problems Recent Progress Patient-Stated? Author Patient will adhere to medication regimen General No Rosy Nunes Keep your medical appointments Lifestyle No Rosy Nunes documented as of this encounter Visit Diagnoses Not on filedocumented in this encounter Additional Health Concerns Assessment Noted Time PHQ-9 Depression Total Score: 11 024 10:31 AM EST documented as of this encounter Care Teams Tin Worker Relationship Specialty Start Date End Date Airam Romero MD [address] [place] [address] PCP - General Internal Medicine 12/16/22 Fred Dotson FNP [address] [place] [address] Nurse Practitioner Family Medicine 05/10/23 documented as of this encounter
--- OUTSIDE RECORDS SUMMARY | 2025-05-29 17:02 | XMS_ITS | Patient Health Record ---
Author Organization [facility] Address [address] [facility] [address] [place] [address] Support Name Relationship Address Phone Mango Cristel Guarantor Unknown [phone] Allergies No Known Allergies Reason For Referral No Information Medications Medication SIG (Take, Route, Frequency, Duration) Notes Start Date End Date Status Omeprazole 40 MG Capsule Delayed Release Take 1 oral Every day Oral Every day Active Gabapentin 600 MG Tablet Take 1 oral Twi ce a day Oral Twice a day Active Rozerem 8 MG Tablet Take 1 oral Every da y Oral Every day Active SEROquel 400 MG Tablet Take 1 oral Twice a day Oral Twice a day Active Problems Problem Type SNOMED Code ICD Code Onset Dates Problem Status W/U Status Risk Notes Problem Lumbar radiculopathy (953874150) Radiculopat hy, lumbar region (M54.16) Active confirmed Problem Low back pain (357571347) Low back pain (M54.5) Active confirmed Plan Of Treatment No Information Insurance Providers Payer Name Payer Address Payer Phone Subscriber Number Group Number Insured Name Patient Relationship to Insured Coverage Start Date Coverage End Date [facility] [address] [employer] [address] [address] [place] [address] [id number] MADAYAMBERLY Cristel Cobian Self - patient is the insured 7 [id number]
--- OUTSIDE RECORDS SUMMARY | 2025-05-29 17:02 | XMS_ITS | Encounter Summary ---
Author Organization [employer] Address 75 [facility] 7 [place] [address] Care Team Providers Care Environmental Air Specialist Name Role Phone Airam Romero MD Primary Care Pro vider Fred Dotson Unavailable Unavailable Reason for Visit * Reason Onset Date Comments chartprep 05/28/2025 Encounter Details Date Type Department Care Team (Late st Contact Info) Description 05/28/2025 Telephone [facility] MED[facility] [address] [place], [place] [phone] Airam Romero MD [address] [place] [address] chartprep Social History Tobacco Use Types Packs/Day Years [...] the past 12 months, has t he [employer], gas, oil or water [employer] threatened to shut off services in your [...] encounter Miscellaneous Notes * Telephone Encounter - Bree Felix MA - 05/28/2025 1:41 PM EST ..Chart Prep Labs: done Images: not done Vaccines due: Covid Due, Hep B Due, Flu Due, RSV in Pharmacy Due, and Shingles in pharmacy Due Referrals: Not Applicable Screenings: Colonoscopy and Mammogram Overdue care gaps: PHQ9 and GAD7 documented in this encounter Plan of Treatment Upcoming Encounters Date Type Department Care Team (Late st Contact Info) Description 08/23/2025 1:15 PM EDT Office Visit [facility] MED[facility] [address] [place] [address] Airam Romero MD [address] [place] [address] documented as of this encounter Goals Goal Patient Goal Type Associated Problems Recent Progress Patient-Stated? Author Patient will adhere to medication regimen General No Cardaropoli , Gallegos Keep your medical appointments Lifestyle No Rosy Nunes documented as of this encounter Visit Diagnoses Not on filedocumented in this encounter Additional Health Concerns Assessment Noted Time PHQ-9 Depression Total Score: 21 12/27/ 025 11:30 AM EDT documented as of this encounter Care Teams Environmental Air Specialist Relationship Specialty Start Date End Date Airam Romero MD [address] [place] [address] PCP - General Internal Medicine 12/16/22 Fred Dotson FNP [address] [place] [address] Nurse Practitioner Family Medicine 05/10/23 documented as of this encounter
--- OUTSIDE RECORDS SUMMARY | 2025-05-29 17:02 | XMS_ITS | Patient Health Record ---
Author Organization [facility] [employer] Billing Info Address [address] [place] [address] Phone [phone] Care Team Providers Care Fig Caprifier Name Role Phone DR CHRISTIANO AUGUSTINE JR Primary Care Provider Unavailable Reason For Referral No Information Medications Medication SIG (Take, Route, Frequency, Duration) Notes Start Date End Date Diagnosis (ICD Code) Status Rozerem 8 MG Tablet 1 tablet at bedtime as needed Orally Once a day Active Gabapentin 600 MG Tablet 1 tablet Orally Three times a day; Duration: 30 day(s) Active Seroquel 400 MG Tablet 1 tablet at bedtime Orally Once a day; Duration: 30 day(s) Active Fioricet 50-300-40 MG Capsule 1 capsule as needed Orally every 4 hrs Active Tramadol HCl 50 MG Tablet 1 tablet as needed Orally every 6 hrs Active Social History Sex Observation Social History Observation Description Sex Observation Female Social History Additional Details Category Social Info Options Details Social History Marital Status: Single Drugs: none Family risk factors: no DV issue s Problems Problem Type SNOMED Code ICD Code Dates Problem Status W/U Status Risk Notes Problem Venereal disease screening (788801817) Screening for STD (sexually transmitted disease) (V74.5) Added On:2013 Active confirmed Problem Routine gynecologic examination done (34349372776527) Visit for routine rack cleaner exam (V72.31) Added On:2013 Active confirmed Plan Of Treatment Pending Test Test Name Order Date RPR ([id number]) 08/08/2013 HBsAg Screen ([id number]) 08/08/2013 HIV 1/0/2 ANTIBODY W/ REFLEX TO NUCLEIC ACID TESTING([id number]) 08/08/2013 HCV Ab w/Rflx to RIBA ([id number]) 014 HSV 1 and 2-Specific Ab, IgG ([id number]) 08/08/2013 HSV 1 and 2 IgM Abs, Indirect ([id number]) 08/08/2013 Insurance Providers Payer Name Payer Address Payer Phone Subscriber Number Group Number Insured Name Patient Relationship to Insured Coverage Start Date Coverage End Date [id number] [address] [address] [place], [place] [id number] Cristel Cobian Self - patient is the insured 5 0 Medical (General) History Medical History History ICD Code ASTHMA THYROID DYSFUNCTION DEPRESSION Surgical History Surgery Date(Month/Year) cholecystectomy tubal ligation
--- OUTSIDE RECORDS SUMMARY | 2025-05-29 17:02 | XMS_ITS | Encounter Summary ---
Author Organization [employer] Address 75 [facility] 7t [place] [address] Care Team Providers Care Wax Blender Name Role Phone Airam Romero MD Primary Care Pro vider Fred Dotson Unavailable Unavailable Reason for Visit * Reason Comments Med Refill Encounter Details Date Type Department Care Team (Late st Contact Info) Description 07/14/2023 Refill [facility] [address] [place] [address] Fred Dotson FNP Hx of fracture of lower leg Social [...] is your housing situation today? I have carlosrenae fernando 03/29/[address] you [...] Description 08/23/2025 1:15 PM EDT Office Visit [facility] [address] [place] [address] Airam Romero MD [address] [place] [address] documented as of this encounter Goals Goal [...] documented as of this encounter Care Teams Wax Blender Relationship Specialty Start Date End Date Airam Romero MD [address] [place] [address] PCP - General Internal Medicine 12/16/22 Fred Dotson FNP [address] [place] [address] Nurse Practitioner Family Medicine 05/10/23 documented as of this encounter
--- OUTSIDE RECORDS SUMMARY | 2025-05-29 17:02 | XMS_ITS | Encounter Summary ---
Author Organization [employer] Address 75 [facility] 7t [place] [address] Care Team Providers Care Firmware Software Verification Engineer Name Role Phone Airam Romero MD Primary Care Pro vider Fred Dotson Unavailable Unavailable Reason for Visit * Reason Comments Med Refill Encounter Details Date Type Department Care Team ([facility] Contact Info) Description 11/16/2022 Refill [facility] [address] [place] [phone] Consuelo Kelly FNP Hx of fracture of lower leg Social History Tobacco Use Types Packs/Day Years Used Date Smoking Tobacco: Every Day Cigarettes 0.5 20 Passive Smoke Exposure: Current Smokeless Tobacco: Never Alcohol Use Standard Drinks/Week Comments Not Currently 0 (1 standard drink = 0.6 oz pur e alcohol) hx of occasional use. Comments Unknown Sex and Gender Information Value [...] suspected to have Coronavirus/COVID-19? No / Unsure 11/18/2022 5:12 PM EDT documented as of this encounter Plan of Treatment Upcoming Encounters Date Type Department Care Team ([facility] Contact Info) Description 08/23/2025 1:15 PM EDT Office Visit [facility] MEDICINE [address] [place] [address] [phone] Airam Romero MD [address] [place] [address] documented as of this encounter Visit Diagnoses Diagnosis Hx of fracture of lower leg documented in this encounter Care Teams Firmware Software Verification Engineer Relationship Specialty Start Date End Date Airam Romero MD [address] [place] [address] [phone] PCP - General Internal Medicine 12/16/22 Fred Dotson FNP [address] [place] [address] Nurse Practitioner Family Medicine 05/10/23 documented as of this encounter
--- OUTSIDE RECORDS SUMMARY | 2025-05-29 17:02 | XMS_ITS | Encounter Summary ---
Author Organization [employer] Address 75 [facility] 7 [place] [address] Care Team Providers Care Executive Creative Director Name Role Phone Airam Romero MD Primary Care Pro vider Fred Dotson Unavailable Unavailable Reason for Visit * Reason Comments Med Refill Encounter Details Date Type Department Care Team (Late st Contact Info) Description 04/26/2023 Refill [facility] [address] [place], [place] [phone] Airam Romero MD [address] [place] [address] Social History Tobacco Use Types Packs/Day Years [...] Description 08/23/2025 1:15 PM EDT Office Visit [facility] MED[facility]INE [address] [place] [phone] Airam Romero MD [address] [place] [address] documented as of this encounter Goals Goal [...] documented as of this encounter Care Teams Executive Creative Director Relationship Specialty Start Date End Date Airam Romero MD [address] [place] [address] PCP - General Internal Medicine 12/16/22 Fred Dotson FNP [address] [place] [address] Nurse Practitioner Family Medicine 05/10/23 documented as of this encounter
--- OUTSIDE RECORDS SUMMARY | 2025-05-29 17:02 | XMS_ITS | Encounter Summary ---
Author Organization [employer] Address [address] [facility] [address] 7[address] [place] [address] Care Team Providers Care Director Television News Name Role Phone Airam Romero MD Primary Care Pro vider Fred Dotson Unavailable Unavailable Encounter Details Date Type Department Care Team (Latest Contact Info) Description 05/29/2025 Travel Social History Tobacco Use Types Packs/Day Years [...] Questionnaire -2 Score 6 05/29/2025 4:23 PM Birdie Felton MA * Little interest or pleasure in [...] Questionnaire-9 Score Answer Date of Assessment Author 05/29/2025 4:23 PM Marycarmen Felton MA * Over the last 2 weeks, how often have you been bothered by any of the following problems? Question Answer Date of Assessment Author Feeling nervous, anxious, or on edge 3 05/29/2025 4:24 PM Birdie Felton MA Not being able to stop or [...] Assessment Author Extremely difficult 05/29/2025 4:23 PM EST Birdie Yu MA documented as of this encounter Plan of Treatment Upcoming Encounters Date Type Department Care Team (Late st Contact Info) Description 08/23/2025 1:15 PM EDT Office Visit [facility] MEDICINE [address] [place] [address] Airam Romero MD [address] [place] [address] documented as of this encounter Goals Goal Patient Goal Type Associated Problems Recent Progress Patient-Stated? Author Patient will adhere to medication regimen General No Rosy Nunes Keep your medical appointments Lifestyle No Rosy Nunes documented as of this encounter Visit Diagnoses Not on filedocumented in this encounter Additional Health Concerns Assessment Noted Time PHQ-9 Depression Total Score: 25 05/29/ 025 4:23 PM EST documented as of this encounter Care Teams Director Television News Relationship Specialty Start Date End Date Airam Romero MD [address] [place] [address] PCP - General Internal Medicine 12/16/22 Fred Dotson FNP [address] [place] [address] Nurse Practitioner Family Medicine 05/10/23 documented as of this encounter
--- OUTSIDE RECORDS SUMMARY | 2025-05-29 17:02 | XMS_ITS | Encounter Summary ---
Author Organization [employer] Address 75 [facility] 7t [place] [address] Care Team Providers Care Model Artists' Name Role Phone Airam Romero MD Primary Care Pro vider Fred Dotson Unavailable Unavailable Reason for Visit * Reason Comments Med Refill Encounter Details Date Type Department Care Team (Late st Contact Info) Description 05/19/2023 Refill [facility] MEDICINE [address] [place], [place] [phone] Airam Romero MD [address] [place] [address] Hx of fracture of lower leg Social [...] Date Recorded Patient Health Questionnaire-9 Score 10 05/20/2023 Patient Health Questionnaire-9 Score 10 05/20/2023 Last PHQ-9: Questionnaire Data Not on file 1 07/21/2022 Housing Stability Answer Date Recorded What is [...] Answer Date Recorded Patient Health Questionnaire-2 Score 2 05/20/2023 Comments No Sex and Gender Information Value [...] Assessment Author Patient Health Questionnaire -2 Score 2 05/20/2023 3:02 PM Melonie Grajeda MA * How difficult have these problems made it for you to do your work, take care of things at home, or get along with other people? Answer Date of Assessment Author Very difficult 05/20/2023 3:02 PM Janessa Grajeda MA * Over the past 2 weeks, how often have you been bothered by any of the following problems? Question Answer Date of Assessment Author Little interest or pleasure in doing things Several days 05/20/2023 3:02 PM Sandhya Grajeda MA Feeling down, depressed, or hopeless Several days 05/20/2023 3:02 PM Melonie Grajeda MA Trouble falling or staying asleep, or sleeping too much Nearly every day 05/20/2023 3:02 PM Melonie Grajeda MA Feeling tired or having little energy Nearly every day 05/20/2023 3:02 PM Melonie Grajeda MA Poor appetite or overeating Several days 05/20/2023 3:02 PM Melonie Grajeda MA Feeling bad about yourself - or that you are a failure or have let yourself or your family down Several days 05/20/2023 3:02 PM Melonie Grajeda MA Trouble concentrating on things, such as reading the newspaper or watching television Not at all 05/20/2023 3:02 PM Melonie Grajeda MA Moving or speaking so slowly that other people could have noticed? Or the opposite - being so fidgety or restless that you have been moving around a lot more than usual. Not at all 05/20/2023 3:02 PM Melonie Grajeda MA Thoughts that you would be better off or hurting yourself in some way Not at all 05/20/2023 3:02 PM Devi Grajeda MA Patient Health Questionnaire-9 Score 10 05/20/2023 3:02 PM Dick Grajeda MA documented as of this encounter Plan of Treatment Upcoming Encounters Date Type Department Care Team (Late st Contact Info) Description 08/23/2025 1:15 PM EDT Office Visit [facility] MEDICINE [address] [place] [phone] Airam Romero MD [address] [place] [phone] documented as of this encounter Goals Goal [...] documented as of this encounter Care Teams Model Artists' Relationship Specialty Start Date End Date Airam Romero MD [address] [place] [phone] PCP - General Internal Medicine 12/16/22 Fred Dotson FNP [address] [place] [address] Nurse Practitioner Family Medicine 05/10/23 documented as of this encounter
--- OUTSIDE RECORDS SUMMARY | 2025-05-29 17:02 | XMS_ITS | Encounter Summary ---
Author Organization [employer] Address [address] [facility] [address] 7t [place] [address] Care Team Providers Care Gold Leaf Laborer Name Role Phone Airam Romero MD Primary Care Pro vider Fred Dotson Unavailable Unavailable Encounter Details Date Type Department Care Team (Late Contact Info) Description 11/19/2022 Orders Only [facility] [address] [place] [address] [phone] Josue Cintron MD [address] [place] [address] Gastroesophageal reflux disease without esophagitis Social History Tobacco Use Types Packs/Day Years [...] Encounters Date Type Department Care Team (Late Contact Info) Description 08/23/2025 1:15 PM EDT Office Visit [facility] [address] [place] [phone] Airam Romero MD [address] [place] [address] documented as of this encounter Visit Diagnoses Diagnosis Gastroesophageal reflux disease without esophagitis Esophageal reflux documented in this encounter Care Teams Gold Leaf Laborer Relationship Specialty Start Date End Date Airam Romero MD [address] [place] [address] PCP - General Internal Medicine 12/16/22 Fred Dotson FNP [address] [place] [address] Nurse Practitioner Family Medicine 05/10/23 documented as of this encounter
--- OUTSIDE RECORDS SUMMARY | 2025-05-29 17:02 | XMS_ITS | Encounter Summary ---
Author Organization [employer] Address 75 [facility] 7t [place] [address] Care Team Providers Care Assistant Cook Name Role Phone Airam Romero MD Primary Care Pro vider Fred Dotson Unavailable Unavailable Reason for Visit * Reason Comments Med Refill Encounter Details Date Type Department Care Team (Late st Contact Info) Description 10/02/2023 Refill [facility] MEDICINE [address] [place], [place] [phone] Airam Greer MD [address] [place] [address] Hx of fracture of lower leg Social [...] Assessment Author Patient Health Questionnaire -2 Score 4 10/05/2023 9:54 AM EDT Melonie Elkins MA * How difficult have these problems made it for you to do your work, take care of things at home, or get along with other people? Answer Date of Assessment Author Very difficult 10/05/2023 9:54 AM ROGERT Janessa Elkins MA * Over the past 2 weeks, how often have you been bothered by any of the following problems? Question Answer Date of Assessment Author Little interest or pleasure in doing things Several days 10/05/2023 9:54 AM ROGERT Janessa Elkins MA Feeling down, depressed, or hopeless Nearly every day 10/05/2023 9:54 AM ROGERT Janessa Elkins MA Trouble falling or staying asleep, or sleeping too much Nearly every day 10/05/2023 9:54 AM Janessa Mcgrath MA Feeling tired or having little energy Nearly every day 10/05/2023 9:54 AM ROGERT Janessa Elkins MA Poor appetite or overeating More than half the days 10/05/2023 9:54 AM EDT Janessa Elkins MA Feeling bad about yourself - or that you are a failure or have let yourself or your family down Several days 10/05/2023 9:54 AM EDT Janessa Elkins MA Trouble concentrating on things, such as reading the newspaper or watching television Several days 10/05/2023 9:54 AM EDT Janessa Elkins MA Moving or speaking so slowly that other people could have noticed? Or the opposite - being so fidgety or restless that you have been moving around a lot more than usual. Not at all 10/05/2023 9:54 AM EDT Janessa Elkins MA Thoughts that you would be better off or hurting yourself in some way Not at all 10/05/2023 9:54 AM EDT Janessa Elkins MA Patient Health Questionnaire-9 Score 14 10/05/2023 9:54 AM EDT Janessa Elkins MA documented as of this encounter Plan of Treatment Upcoming Encounters Date Type Department Care Team (Late st Contact Info) Description 08/23/2025 1:15 PM EDT Office Visit [facility] MEDICINE [address] [place] [phone] Airam Romero MD [address] [place] [address] documented as of this encounter Goals Goal [...] documented as of this encounter Care Teams Assistant Cook Relationship Specialty Start Date End Date Airam Romero MD [address] [place] [phone] PCP - General Internal Medicine 12/16/22 Fred Dotson FNP [address] [place] [address] Nurse Practitioner Family Medicine 05/10/23 documented as of this encounter
[2025-05-29 17:07] LABS: Alanine Aminotransferase 21 U/L (0-31); Albumin Level 5.2 g/dL (3.5-5.0); Alkaline Phosphatase 141 U/L (39-117); Anion Gap 12 (12-20); Aspartate Amino Transferase 28 U/L (5-31); Blood Urea Nitrogen 29 mg/dL (9-16); Calcium 10.2 mg/dL (8.4-10.2); Carbon Dioxide 26 mmol/L (22-29); Chloride 106 mmol/L (96-108); Cholesterol 217 mg/dL (<200); Estimated Glomerular Filt Rate > 60; Free T4 (Free Thyroxine) 0.71 ng/dL (0.71-1.85); Gamma Glutamyl Transpeptidase 40 U/L (7-33); HDL Cholesterol 68 mg/dL (>40); Potassium 4.0 mmol/L (3.3-5.1); Sodium 140 mmol/L (135-145); Thyroid Stimulating Hormone 0.60 uIU/mL (0.32-4.0); Total Protein 8.2 g/dL (6.5-8.0); Triglycerides 119 mg/dL (<150)
[2025-05-29 17:35] LABS: Platelet Count 200 X10*3/uL (160-400); White Blood Count 5.9 X10*3/uL (4.8-10.8)
[2025-05-29 17:58] LABS: Folate 7.7 ng/mL (> or = 4.0)
[2025-05-29 18:03] LABS: Vitamin B12 > 2000 pg/mL (200-900)
[2025-05-29 18:21] LABS: CT PCR Urine NOT DETECTED (Not Detect.); NG PCR Urine NOT DETECTED (Not Detect.)
[2025-05-30 04:48] LABS: Syphilis Screen Nonreactive (Nonreactive)
[2025-05-30 05:05] LABS: HBc Num1 0.22 S/CO (0.00-0.79); HIV Num 1 0.08 S/CO (0.00-0.99); ~HepC Num1 0.13 S/CO (0.00-0.79); ~Hepatitis B Surface Antibody REACTIVE (Nonreactive); ~Hepatitis C Antibody Nonreactive (Nonreactive)
[2025-05-31 13:31] LABS: HBsAGNum1 0.29 S/CO (0.00-0.99); Hepatitis B Surface Antigen Negative (Negative)
== END 2025-05-29 13:04 | disposition home or self-care (01) ==
LOC: HO.HHCL 13:03
PROVIDERS: Nurse Practitioner; PCP Student in an Organized Health Care Education/Training Program; Visit Provider Student in an Organized Health Care Education/Training Program
DX: Z00.00 Encounter for general adult medical examination without abnormal findings (principal); Z11.4 Encounter for screening for human immunodeficiency virus [HIV]; Z11.59 Encounter for screening for other viral diseases; Z20.2 Contact with and (suspected) exposure to infections with a predominantly sexual mode of transmission; Z11.1 Encounter for screening for respiratory tuberculosis; R20.0 Anesthesia of skin; R20.2 Paresthesia of skin; R63.4 Abnormal weight loss; R30.0 Dysuria
CPT/HCPCS: 36415; 80053; 80061; 81001; 82306; 82607; 82746; 82977; 83036; 83615; 84439; 84443; 85025; 86481; 86704; 86706; 86780; 86803; 87340; 87389; 87491; 87591

== ENCOUNTER 2025-06-04 09:10 | Outpatient (REF) | payer MEDICAID, SELFPAY ==
--- OUTSIDE RECORDS SUMMARY | 2024-08-26 04:00 | XMS_ITS ---
Author Organization [facility] Primary Care Address [address] [place] [address] Care Team Providers Care Customer Greeter Name Role Phone Not Selected, Physician Unavailable Unavaila ble Migration, Provider Unavailable Unavailable REASON FOR VISIT EMR-[facility] Encounters Encounter Location Date Provider Diagnosis [facility] Primary Care [address] [place] [address] 08/26/2024 Provider Migration Plan Of Treatment Medication Medication Name Sig Start Date Stop Date Notes Methocarbamol 750 mg tablet 09/25/2019 03/13/20 20 Ketorolac Tromethamine 10 MG Tablet Oral 05/23/2018 04/12/2019 trazodone 50 mg tablet 10/10/2018 05/01/2019 *R eorder from [facility] for eRx and Interaction Alerts* Proventil HFA 90 mcg/actuati on HFA aerosol inhaler 04/12/2019 03/13/2020 *Reorder fro [facility] for eRx and Interaction Alerts* ketorolac 10 mg tablet 10/10/2018 04/12/2019 *R eorder from [facility] for eRx and Interaction Alerts* tizanidine 4 mg tablet 10/10/2018 02/28/2019 *R eorder from [facility] for eRx and Interaction Alerts* tizanidine 4 mg capsule 05/01/2019 05/18/2019 * Reorder from [facility] for eRx and Interaction Alerts* OLANZapine 10 mg tablet 10/10/2018 OLANZAPINE 5MG TABLETS 11/15/2017 01/26/2019 *R eorder from [facility] for eRx and Interaction Alerts* Tamiflu 75 mg capsule 05/01/2019 05/18/2019 BUTALBITAL/ACETAMINOPHEN/CAF F TABS 03/30/2018 04/11/2019 *Reorder from [facility] for eRx and Interaction Alerts* Cyclobenzaprine HCl 10 MG Tablet Oral 02/28/2019 03/13/2020 ADVAIR DISKUS 250/50MCG (YELLOW) 60 01/26/2019 03/13/2020 *Reorder from [facility] for eRx and Interaction Alerts* CYCLOBENZAPRINE 10MG TABLETS 09/25/2019 020 *[facility]order from [facility] for eRx and Interaction Alerts* OMEPRAZOLE 20MG CAPSULES 10/10/2018 03/13/2020 *[facility] for [facility]Rx and Interaction Alerts* Progress Notes * LUZMA ESPARZADOB: [birth year] (50 yo F)Acc No.[id number]:08/26/2024 Patient: LUZMA WYLIE :1975 A ge:49 Y S ex:Female Address:[facility] [address], [place], [place], [facility] * Refills Stop ketorolac tablet, 10 mg Stop trazodone tablet, 50 mg Stop Ketorolac Tromethamine Tablet, 10 MG, Oral Stop ADVAIR DISKUS 250/50MCG (YELLOW) 60 Stop CYCLOBENZAPRINE 10MG TABLETS Stop OMEPRAZOLE 20MG CAPSULES Stop OMEPRAZOLE 20MG CAPSULES Stop tizanidine capsule, 4 mg Stop tizanidine tablet, 4 mg Stop tizanidine tablet, 4 mg Stop Cyclobenzaprine HCl Tablet, 10 MG, Oral Stop trazodone tablet, 50 mg Stop trazodone tablet, 50 mg Stop Methocarbamol tablet, 750 mg Stop CYCLOBENZAPRINE 10MG TABLETS Stop OLANZAPINE 5MG TABLETS Stop Ketorolac Tromethamine Tablet, 10 MG, Oral Stop CYCLOBENZAPRINE 10MG TABLETS Stop ketorolac tablet, 10 mg Stop Methocarbamol tablet, 750 mg Stop OLANZapine tablet, 10 mg Stop Tamiflu capsule, 75 mg Stop OLANZAPINE 5MG TABLETS Stop Proventil HFA HFA aerosol inhaler, 90 mcg/actuation Stop OMEPRAZOLE 20MG CAPSULES Stop BUTALBITAL/ACETAMINOPHEN/CAFF TABS Stop ADVAIR DISKUS 250/50MCG (YELLOW) 60 Stop CYCLOBENZAPRINE 10MG TABLETS Stop ADVAIR DISKUS 250/50MCG (YELLOW) 60 Stop OMEPRAZOLE 20MG CAPSULES Subjective: * Chief Complaints: * E MR-Frantz * * Date:
--- OUTSIDE RECORDS SUMMARY | 2024-08-27 04:00 | XMS_ITS ---
Author Organization 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 Name Role Phone Not Selected, Physician Unavailable Unavaila ble Migration, Provider Unavailable Unavailable REASON FOR VISIT EMR-[facility] Medications Medication SIG (Take, Route, Frequency, Duration) Notes Start Date End Date Status Pain Reliever 500 mg tablet *Pick strength-form from [facility] for eRX* 05/01/2019 Active Gabapentin 600 mg tablet 04/12/2019 Active buspirone 15 mg tablet *Reorder from [facility] for eRx and Interaction Alerts* 09/25/2019 Active HYDROcodone-Acetaminoph en 5-325 mg tablet 03/27/2020 Active Diclofenac Sodium 75 mg tablet,delayed release (DR/EC) *Pick strength-form from [facility] for eRX* 09/25/2019 Active pantoprazole 40 mg tablet,delayed release (DR/EC) *Reorder from [facility] for eRx and Interaction Alerts* 03/13/2020 Active tizanidine 4 mg tablet *Reorder from [facility] for eRx and Interaction Alerts* 03/13/2020 Active butalbital-acetaminophe n-caff 50-325-40 mg capsule *Reorder from [facility] for eRx and Interaction Alerts* 01/26/2019 Active CYCLOBENZAPRINE 10MG TABLETS *Reorder from [facility] for eRx and Interaction Alerts* 06/04/2020 Active Claritin 10 mg tablet 09/26/2019 Active fluticasone propionate 50 mcg/actuation nasal spray,suspension *Reorder from [facility] for eRx and Interaction Alerts* 03/27/2020 Active Tylenol Extra Strength 500 mg tablet 05/01/2019 Active Suphedrine 30 mg tablet *Reorder from [facility] for eRx and Interaction Alerts* 03/27/2020 Active Topamax 25 mg tablet 04/12/2019 Active blood sugar diagnostic strip *Reorder from [facility] for eRx and Interaction Alerts* 05/01/2019 Active Azithromycin 250 mg tablet 04/01/2020 Active Augmentin 500-125 mg tablet 03/13/2020 Active SUMAtriptan Succinate 50 mg tablet 09/25/2019 Active OLANZapine 10 mg tablet 10/10/2018 Active blood-glucose meter misc *Reorder from [facility] for eRx and Interaction Alerts* 05/01/2019 Active PROzac 40 mg capsule 09/25/2019 Active Trazodone HCl 100 MG Tablet *Reorder from [facility] for eRx and Interaction Alerts* 09/25/2019 Active atorvastatin 10 mg tablet *Reorder from [facility] for eRx and Interaction Alerts* 01/26/2019 Active Lancets 30 gauge misc 05/01/2019 Active Sucralfate 1 gram tablet *Pick strength-form from [facility] for eRX* 03/13/2020 Active Mobic 7.5 mg tablet *Reorder fro [facility] for eRx and Interaction Alerts* 09/25/2019 Active Loratadine 10 mg tablet 03/13/2020 Active Famotidine 20 mg tablet 03/15/2020 Active BUSPIRONE 15MG TABLETS *Reorder from [facility] for eRx and Interaction Alerts* 06/04/2020 Active quetiapine 400 mg tablet *Reorder from [facility] for eRx and Interaction Alerts* 09/25/2019 Active Encounters Encounter Location Date Provider Diagnosis [facility] Primary Care [facility] [place] [address] 08/27/2024 Provider Migration Plan Of Treatment No Information Progress Notes * LUZMA ESPARZADOB: [birth year] (50 yo F)Acc No.[id number]:08/27/2024 Patient: Haydee LUZMA HOOPER :1975 A ge:49 Y S ex:Female Address:[facility] [address], [place], [address] Subjective: * Chief Complaints: * E MR-[facility] * Medications: T akingTrazodone HCl 100 MG Tablet , Notes to Pharmacist: *Reorder from [facility] for eRx and Interaction Alerts*Claritin 10 mg tablet Diclofenac Sodium 75 mg tablet,delayed release (DR/EC) , Notes to Pharmacist: *Pick strength-form from [facility] for eRX*Gabapentin 600 mg tablet Pain Reliever 500 mg tablet , Notes to Pharmacist: *Pick strength-form from [facility] for eRX*buspirone 15 mg tablet , Notes to Pharmacist: *Reorder from [facility] for eRx and Interaction Alerts*Gabapentin 600 mg tablet OLANZapine 10 mg tablet SUMAtriptan Succinate 50 mg tablet Augmentin 500-125 mg tablet Azithromycin 250 mg tablet Diclofenac Sodium 75 mg tablet,delayed release (DR/EC) , Notes to Pharmacist: *Pick strength-form from [facility] for eRX*Diclofenac Sodium 75 mg tablet,delayed release (DR/EC) , Notes to Pharmacist: *Pick strength-form from [facility] for eRX*Famotidine 20 mg tablet Mobic 7.5 mg tablet , Notes to Pharmacist: *Reorder from [facility] for eRx and Interaction Alerts*Sucralfate 1 gram tablet , Notes to Pharmacist: *Pick strength-form from [facility] for eRX*SUMAtriptan Succinate 50 mg tablet Gabapentin 600 mg tablet Mobic 7.5 mg tablet , Notes to Pharmacist: *Reorder from [facility] for eRx and Interaction Alerts*Gabapentin 600 mg tablet OLANZapine 10 mg tablet PROzac 40 mg capsule fluticasone propionate 50 mcg/actuation nasal spray,suspension , Notes to Pharmacist: *Reorder from [facility] for eRx and Interaction Alerts*Diclofenac Sodium 75 mg tablet,delayed release (DR/EC) , Notes to Pharmacist: *Pick strength-form from [facility] for eRX*OLANZapine 10 mg tablet PROzac 40 mg capsule blood sugar diagnostic strip , Notes to Pharmacist: *Reorder from [facility] for eRx and Interaction Alerts*Trazodone HCl 100 MG Tablet , Notes to Pharmacist: *Reorder from [facility] for eRx and Interaction Alerts*BUSPIRONE 15MG TABLETS , Notes to Pharmacist: *Reorder from [facility] for eRx and Interaction Alerts*quetiapine 400 mg tablet , Notes to Pharmacist: *Reorder from [facility] for eRx and Interaction Alerts*tizanidine 4 mg tablet , Notes to Pharmacist: *Reorder from [facility] for eRx and Interaction Alerts*quetiapine 400 mg tablet , Notes to Pharmacist: *Reorder from [facility] for eRx and Interaction Alerts*quetiapine 400 mg tablet , Notes to Pharmacist: *Reorder from [facility] for eRx and Interaction Alerts*Trazodone HCl 100 MG Tablet , Notes to Pharmacist: *Reorder from [facility] for eRx and Interaction Alerts*emxccnnjfe-[id number]-[id number] 50-325-40 mg capsule , Notes to Pharmacist: *Reorder from [facility] for eRx and Interaction Alerts*CYCLOBENZAPRINE 10MG TABLETS , Notes to Pharmacist: *Reorder from [facility] for eRx and Interaction Alerts*quetiapine 400 mg tablet , Notes to Pharmacist: *Reorder from [facility] for eRx and Interaction Alerts*pantoprazole 40 mg tablet,delayed release (DR/EC) , Notes to Pharmacist: *Reorder from [facility] for eRx and Interaction Alerts*quetiapine 400 mg tablet , Notes to Pharmacist: *Reorder from [facility] for eRx and Interaction Alerts*quetiapine 400 mg tablet , Notes to Pharmacist: *Reorder from [facility] for eRx and Interaction Alerts*Trazodone HCl 100 MG Tablet , Notes to Pharmacist: *Reorder from [facility] for eRx and Interaction Alerts*Diclofenac Sodium 75 mg tablet,delayed release (DR/EC) , Notes to Pharmacist: *Pick strength-form from [facility] for eRX*Loratadine 10 mg tablet Mobic 7.5 mg tablet , Notes to Pharmacist: *Reorder from [facility] for eRx and Interaction Alerts*Lancets 30 gauge misc atorvastatin 10 mg tablet , Notes to Pharmacist: *Reorder from [facility] for eRx and Interaction Alerts*atorvastatin 10 mg tablet , Notes to Pharmacist: *Reorder from [facility] for eRx and Interaction Alerts*Gabapentin 600 mg tablet Tylenol Extra Strength 500 mg tablet Claritin 10 mg tablet Gabapentin 600 mg tablet Mobic 7.5 mg tablet , Notes to Pharmacist: *Reorder from [facility] for eRx and Interaction Alerts*blood-glucose meter misc , Notes to Pharmacist: *Reorder from [facility] for eRx and Interaction Alerts*OLANZapine 10 mg tablet Suphedrine 30 mg tablet , Notes to Pharmacist: *Reorder from [facility] for eRx and Interaction Alerts*Topamax 25 mg tablet Topamax 25 mg tablet HYDROcodone-Acetaminophen 5-325 mg tablet OLANZapine 10 mg tablet Topamax 25 mg tablet Taking Trazodone HCl 100 MG Tablet , Notes to Pharmacist: *Reorder from [facility] for eRx and Interaction Alerts*Taking Claritin 10 mg tablet Taking Diclofenac Sodium 75 mg tablet,delayed release (DR/EC) , Notes to Pharmacist: *Pick strength-form from [facility] for eRX*Taking Gabapentin 600 mg tablet Taking Pain Reliever 500 mg tablet , Notes to Pharmacist: *Pick strength-form from [facility] for eRX*Taking buspirone 15 mg tablet , Notes to Pharmacist: *Reorder from [facility] for eRx and Interaction Alerts*Taking Gabapentin 600 mg tablet Taking OLANZapine 10 mg tablet Taking SUMAtriptan Succinate 50 mg tablet Taking Augmentin 500-125 mg tablet Taking Azithromycin 250 mg tablet Taking Diclofenac Sodium 75 mg tablet,delayed release (DR/EC) , Notes to Pharmacist: *Pick strength-form from [facility] for eRX*Taking Diclofenac Sodium 75 mg tablet,delayed release (DR/EC) , Notes to Pharmacist: *Pick strength-form from [facility] for eRX*Taking Famotidine 20 mg tablet Taking Mobic 7.5 mg tablet , Notes to Pharmacist: *Reorder from [facility] for eRx and Interaction Alerts*Taking Sucralfate 1 gram tablet , Notes to Pharmacist: *Pick strength-form from [facility] for eRX*Taking SUMAtriptan Succinate 50 mg tablet Taking Gabapentin 600 mg tablet Taking Mobic 7.5 mg tablet , Notes to Pharmacist: *Reorder from [facility] for eRx and Interaction Alerts*Taking Gabapentin 600 mg tablet Taking OLANZapine 10 mg tablet Taking PROzac 40 mg capsule Taking fluticasone propionate 50 mcg/actuation nasal spray,suspension , Notes to Pharmacist: *Reorder from [facility] for eRx and Interaction Alerts*Taking Diclofenac Sodium 75 mg tablet,delayed release (DR/EC) , Notes to Pharmacist: *Pick strength-form from [facility] for eRX*Taking OLANZapine 10 mg tablet Taking PROzac 40 mg capsule Taking blood sugar diagnostic strip , Notes to Pharmacist: *Reorder from [facility] for eRx and Interaction Alerts*Taking Trazodone HCl 100 MG Tablet , Notes to Pharmacist: *Reorder from [facility] for eRx and Interaction Alerts*Taking BUSPIRONE 15MG TABLETS , Notes to Pharmacist: *Reorder from [facility] for eRx and Interaction Alerts*Taking quetiapine 400 mg tablet , Notes to Pharmacist: *Reorder from [facility] for eRx and Interaction Alerts*Taking tizanidine 4 mg tablet , Notes to Pharmacist: *Reorder from [facility] for eRx and Interaction Alerts*Taking quetiapine 400 mg tablet , Notes to Pharmacist: *Reorder from [facility] for eRx and Interaction Alerts*Taking quetiapine 400 mg tablet , Notes to Pharmacist: *Reorder from [facility] for eRx and Interaction Alerts*Taking Trazodone HCl 100 MG Tablet , Notes to Pharmacist: *Reorder from [facility] for eRx and Interaction Alerts*Taking [id number] 50-325-40 mg capsule , Notes to Pharmacist: *Reorder from [facility] for eRx and Interaction Alerts*Taking CYCLOBENZAPRINE 10MG TABLETS , Notes to Pharmacist: *Reorder from [facility] for eRx and Interaction Alerts*Taking quetiapine 400 mg tablet , Notes to Pharmacist: *Reorder from [facility] for eRx and Interaction Alerts*Taking pantoprazole 40 mg tablet,delayed release (DR/EC) , Notes to Pharmacist: *Reorder from [facility] for eRx and Interaction Alerts*Taking quetiapine 400 mg tablet , Notes to Pharmacist: *Reorder from [facility] for eRx and Interaction Alerts*Taking quetiapine 400 mg tablet , Notes to Pharmacist: *Reorder from [facility] for eRx and Interaction Alerts*Taking Trazodone HCl 100 MG Tablet , Notes to Pharmacist: *Reorder from [facility] for eRx and Interaction Alerts*Taking Diclofenac Sodium 75 mg tablet,delayed release (DR/EC) , Notes to Pharmacist: *Pick strength-form from [facility] for eRX*Taking Loratadine 10 mg tablet Taking Mobic 7.5 mg tablet , Notes to Pharmacist: *Reorder from [facility] for eRx and Interaction Alerts*Taking Lancets 30 gauge misc Taking atorvastatin 10 mg tablet , Notes to Pharmacist: *Reorder from [facility] for eRx and Interaction Alerts*Taking atorvastatin 10 mg tablet , Notes to Pharmacist: *Reorder from [facility] for eRx and Interaction Alerts*Taking Gabapentin 600 mg tablet Taking Tylenol Extra Strength 500 mg tablet Taking Claritin 10 mg tablet Taking Gabapentin 600 mg tablet Taking Mobic 7.5 mg tablet , Notes to Pharmacist: *Reorder from [facility] for eRx and Interaction Alerts*Taking blood-glucose meter misc , Notes to Pharmacist: *Reorder from [facility] for eRx and Interaction Alerts*Taking OLANZapine 10 mg tablet Taking Suphedrine 30 mg tablet , Notes to Pharmacist: *Reorder from [facility] for eRx and Interaction Alerts*Taking Topamax 25 mg tablet Taking Topamax 25 mg tablet Taking HYDROcodone-Acetaminophen 5-325 mg tablet Taking OLANZapine 10 mg tablet Taking Topamax 25 mg tablet * * Date:
--- NOTE | ~2025-06-04 | CT_ITS ---
EXAMINATION: CT CHEST WITH IV CONTRAST, CT ABDOMEN PELVIS WITH IV CONTRAST INDICATION: pt tobacco smoker ,weight loss ,chronic cough to r/o malignancy COMPARISON: There are no prior studies available for comparison.. TECHNIQUE: CT scan of the chest, abdomen and pelvis was performed following administration of 85 mL Omnipaque 350 using standard departmental protocol. Coronal and sagittal reformatted images were generated and reviewed. The patient received oral contrast material. This CT exam was performed with one or more of the following dose reduction techniques: automated exposure control, adjustment of the mA and/or kV according to patient size, use of iterative reconstruction technique. DLP: 270 mGy-cm CHEST: THYROID: The thyroid is unremarkable. LUNGS: The lungs are clear. MEDIASTINUM: There is no mediastinal lymphadenopathy. SHARATH: There is no hilar lymphadenopathy. CARDIOVASCULATURE: The heart is normal in size. There is no pericardial effusion. The thoracic aorta is normal in caliber. DEGREE OF CORONARY CALCIFICATION: none PLEURA: There is no pleural effusion. No pneumothorax. MAIN AIRWAYS: The mainstem bronchi and proximal branches are patent. AXILLA: There is no axillary lymphadenopathy. SOFT TISSUES: Unremarkable. BONES: The bones are intact. ABDOMEN: LIVER: The liver is normal in size and contour. No liver mass is identified. The hepatic and portal veins are patent. GALLBLADDER / BILE DUCTS: The gallbladder is surgically absent. There is no intra or extrahepatic biliary ductal dilatation. SPLEEN: The spleen is normal in size. No focal splenic lesion is identified. PANCREAS: The pancreas is unremarkable in appearance. ADRENAL GLANDS: Within normal limits. KIDNEYS/RETROPERITONEUM: No renal calculi are identified. There is no hydronephrosis. There are probable cyst at the lower pole of the right kidney measuring up to 11 mm in size. LYMPH NODES: No abdominal or pelvic lymphadenopathy. VASCULATURE: The abdominal aorta is normal in caliber. MESENTERY/PERITONEUM: No free fluid. No masses. There is no free intraperitoneal gas. STOMACH: The stomach is collapsed, limiting evaluation. SMALL BOWEL: The small bowel is normal in caliber. COLON: There is a large amount of stool throughout the colon. APPENDIX: Normal. URINARY BLADDER/PELVIC ORGANS: The urinary bladder is collapsed, limiting detailed evaluation. The uterus is unremarkable. BONES / SOFT TISSUES: No suspicious bony or soft tissue abnormalities. CT/CT chest w IV con IMPRESSION: No CT evidence of malignancy in the chest, abdomen, or pelvis. Incidental findings as discussed above. Electronically signed by: Abad Scott MD 06/04/2025 12:21 PM [facility]
--- NOTE | ~2025-06-04 | CT_ITS ---
EXAMINATION: CT CHEST WITH IV CONTRAST, CT ABDOMEN PELVIS WITH IV CONTRAST INDICATION: pt tobacco smoker ,weight loss ,chronic cough to r/o malignancy COMPARISON: There are no prior studies available for comparison.. TECHNIQUE: CT scan of the chest, abdomen and pelvis was performed following administration of 85 mL Omnipaque 350 using standard departmental protocol. Coronal and sagittal reformatted images were generated and reviewed. The patient received oral contrast material. This CT exam was performed with one or more of the following dose reduction techniques: automated exposure control, adjustment of the mA and/or kV according to patient size, use of iterative reconstruction technique. DLP: 270 mGy-cm CHEST: THYROID: The thyroid is unremarkable. LUNGS: The lungs are clear. MEDIASTINUM: There is no mediastinal lymphadenopathy. SHARATH: There is no hilar lymphadenopathy. CARDIOVASCULATURE: The heart is normal in size. There is no pericardial effusion. The thoracic aorta is normal in caliber. DEGREE OF CORONARY CALCIFICATION: none PLEURA: There is no pleural effusion. No pneumothorax. MAIN AIRWAYS: The mainstem bronchi and proximal branches are patent. AXILLA: There is no axillary lymphadenopathy. SOFT TISSUES: Unremarkable. BONES: The bones are intact. ABDOMEN: LIVER: The liver is normal in size and contour. No liver mass is identified. The hepatic and portal veins are patent. GALLBLADDER / BILE DUCTS: The gallbladder is surgically absent. There is no intra or extrahepatic biliary ductal dilatation. SPLEEN: The spleen is normal in size. No focal splenic lesion is identified. PANCREAS: The pancreas is unremarkable in appearance. ADRENAL GLANDS: Within normal limits. KIDNEYS/RETROPERITONEUM: No renal calculi are identified. There is no hydronephrosis. There are probable cyst at the lower pole of the right kidney measuring up to 11 mm in size. LYMPH NODES: No abdominal or pelvic lymphadenopathy. VASCULATURE: The abdominal aorta is normal in caliber. MESENTERY/PERITONEUM: No free fluid. No masses. There is no free intraperitoneal gas. STOMACH: The stomach is collapsed, limiting evaluation. SMALL BOWEL: The small bowel is normal in caliber. COLON: There is a large amount of stool throughout the colon. APPENDIX: Normal. URINARY BLADDER/PELVIC ORGANS: The urinary bladder is collapsed, limiting detailed evaluation. The uterus is unremarkable. BONES / SOFT TISSUES: No suspicious bony or soft tissue abnormalities. CT/CT abdomen pelvis w IV con IMPRESSION: No CT evidence of malignancy in the chest, abdomen, or pelvis. Incidental findings as discussed above. Electronically signed by: Abad Scott MD 06/04/2025 12:21 PM [facility] [place]
--- OUTSIDE RECORDS SUMMARY | 2025-06-04 10:09 | XMS_ITS | Encounter Summary ---
Author Organization [employer] Address 75 [facility] 7t [place] [address] Care Team Providers Care Emery Wheel Worker Name Role Phone Airam Romero MD Primary Care Pro vider Fred Dotson Unavailable Unavailable Reason for Visit * Reason Comments Med Refill Encounter Details Date Type Department Care Team ([facility] Contact Info) Description 12/09/2022 Refill [facility] [address] [place] [address] Consuelo Kelly FNP Hx of fracture of [...] Upcoming Encounters Date Type Department Care Team ([facility] Contact Info) Description 06/20/2025 9:30 AM EST Medication Management [facility] MEDICINE [address] [place] [phone] Shruthi Han, PharmD [address] [place] [address] 08/23/2025 1:15 PM EDT Office Visit [facility] MEDICINE [address] [place] [phone] Airam Romero MD [address] [place] [address] documented as of this encounter Visit Diagnoses Diagnosis Hx of fracture of lower leg Chronic constipation Unspecified constipation documented in this encounter Additional Health Concerns Assessment Noted Time PHQ-9 Depression Total Score: 9 12/03/19 23 9:46 AM EDT documented as of this encounter Care Teams Emery Wheel Worker Relationship Specialty Start Date End Date Airam Romero MD [address] [place] [phone] PCP - General Internal Medicine 12/16/22 Fred Dotson FNP [address] [place] [address] Nurse Practitioner Family Medicine 05/10/23 documented as of this encounter
--- OUTSIDE RECORDS SUMMARY | 2025-06-04 10:09 | XMS_ITS | Clinical Summary ---
Author Organization [employer] Address [address] [facility] [address] [place] [address] Care Team Providers Care Flow Floor Attendant Name Role Phone Airam Romero MD Primary [...] in the morning. 90 capsule 1 Active Umeclidinium Harris (Incruse Ellipta) 62.5 MCG/ACT aerosol powder Inhale 1 Act (62.5 mcg) Once per day. 30 Act 5 025 2025 Active venlafaxine (Effexor) 75 MG tablet Take 1 tablet (75 mg) by mouth at noon and 1 tablet (75 mg) in the evening. 60 tablet 2 025 2025 Active Diclofenac Sodium 1 % gel Apply 1 Application topically if needed each day (legs). 50 g Active nicotine polacrilex (Nicorette) 2 MG gum Chew 1 each (2 mg) every 2 (two) hours if needed for smoking cessation. 100 each 1 025 2025 Active Diclofenac Sodium 1 % gelIndications:Hx of fracture of lower leg APPLY 2 GRAMS TO THE AFFECTED AREA TWICE A DAY IF NEEDED FOR PAIN 100 g 023 2024 Discontinued(R eorder (will not trigger notification to Pharmacy)) butalbital-acetam inophen-caffeine 50-325-40 MG tablet TAKE 1 TABLET BY MOUTH EVERY 4 HOURS NEEDED 10 tablet 024 2024 Discontinued(O ther) Umeclidinium Harris (Incruse Ellipta) 62.5 MCG/ACT aerosol powder Inhale [...] 10 tablet 1 024 2024 Discontinued(O ther) fluticasone (Flonase) 50 MCG/ACT nasal spray Administer 1-2 sprays into each nostril Once per day. Shake gently. Before first use, prime pump. After use, clean tip and replace cap.med as trial for 14 days no chronic use thanks 48 mL 2 2024 Discontinued(O ther) venlafaxine XR (Effexor XR) 150 MG 24 hr capsule TAKE 1 CAPSULE BY MOUTH EVERY DAY. TAKE WITH FOOD. DO NOT CRUSH OR CHEW CAPSULE. 90 capsule 2024 Discontinued(O ther) nicotine polacrilex (Nicorette) 2 MG gum Chew 1 each (2 mg) if needed for smoking cessation. 100 each 025 2024 Discontinued(R eorder (will not trigger notification to Pharmacy)) phenazopyridine (Pyridium) 200 MG tablet Take 1 tablet (200 mg) by mouth if needed in the morning, at noon, and at bedtime for bladder spasms for up to 2 days. 6 tablet 2024 carbamide peroxide (Debrox) 6.5 % otic solution Administer 5-10 drops into affected ear(s) 2 times daily for 4 days. 30 mL 2024 Active Problems Problem Noted Date Diagnosed Date [...] -monitor at next visit. -Referred today to senior product designer for PFT and evaluation. Elevated alkaline phosphatase [...] not performed before but requested today to [facility] today to check if MRI was done w PCP in [place] Assessment & Plan (12/02/2022 1:25 PM EDT): [...] not performed before but requested today to [place] today to check if MRI was done w PCP in [place] Cocaine use 12/02/2022 Assessment & Plan (10/05/2023 11:39 AM EDT): Has found Clonidine helpful to support abstinence Assessment & Plan (08/17/2023 11:33 AM EST): Has found Clonidine helpful to support abstinence, but she is still struggling. Would like to speak with debt recovery officer and gives me permission to request a [...] substances (opiates, PCP, etc.) Will refer to [employer]. Consider adding Clonidine 0.1 mg BID, but [...] although patient has not been seen by insulation worker yet - Optimize treatment for allergic rhinitis [...] visual hallucinations. Doing better. Appreciate input of [facility] Pharmacist, will continue simplifying med regimen: Patient [...] chronic constipation -was following w GI in [place] but lost care and never had colonoscopy [...] to get record of CTA?? Done at [place] to confirm if actual had vascular abdominal dx? --per pt had workup at [facility] in [place], [place] --- not able to obtain. Assessment & Plan (12/02/2022 5:05 PM EDT): Reports chronic constipation -was following w GI in [place] but lost care and never had colonoscopy [...] to get record of CTA?? Done at [place] to confirm if actual had vascular abdominal dx? --per pt had workup at [facility] in [place], [place] Gastroesophageal reflux disease without esophagi tis [...] meds pt request to be sent to [facility] -updated now in system--explained pt that all meds sent here this time and fluoxetine sent to new px Resolved Problems Problem Noted Date Diagnosed Date Resolved Date Diabetes due to undrl condit ion w oth diabetic neuro comp 04/03/2023 04/03/2023 Mild intermittent asthma without complication 10/20/1902/25/2023 Assessment & Plan (12/02/2022 1:07 PM EDT): Pt w uncontrolled asthma using albuterol BID -start Advair BID -advised to do mouth washes after use -prn albuterol -monitor at next visit Allergic conjunctivitis of b ot eyes and rhinitis 10/19/2022 04/03/2023 Generalized pruritus 10/19/2022 023 Encounters * This document contains information received from the source organization and may not represent a complete record from that organization. Date Type Department Care Team Description 05/30/2025 Results Follow-Up [facility] MEDICINE [address] [place] [address] [phone] Airam Romero MD POCT Urinalysis, Chlamydia/Trichomonas /Neisseria gonorrhoeae, PCR, Urine, Lactate Dehydrogenase (LD), Additional followed-up results: 14 05/30/2025 Orders Only [facility] MEDICINE [address] [place], [place] [phone] Airam Romero MD Weight loss (Primary Dx); Abnormal CT of the abdomen 05/30/[address] [facility] CHC MED & PEDS [address] [place], [place] [phone] Airam Romero MD 05/30/2025 Telephone [facility] [address] [place] [address] ABD/PELVIS ORDER 05/29/2025 10:45 AM EST Office Visit [facility] MEDICINE [address] [place] [phone] Airam Romero MD Mood disorder (CMS/FORMERLY [facility]) (Primary Dx); Moderate persistent asthma, unspecified whether [...] level; Cigarette nicotine dependence without complication 05/29/2025 Orders Only [facility] MEDICINE [address] [place] [phone] Airam Romero MD 05/29/[address] [phone] Mariola Arteaga RN VNA Referral 05/29/2025 Travel 05/28/[address] [phone] Airam Romero MD chartprep 05/18/2025 Patient Outreach [address] [phone] Airam Romero MD Pre-visit Planning ([facility] screening was completed on 12/27/2024) 05/03/[address] [facility] MED & PEDS [address] [place], [place] [phone] Airam Romero MD 05/03/[address] [facility] MEDICINE [address] [place], [place] [phone] Airam Romero MD Chronic migraine without aura without status migrainosus, not intractable 05/01/2025 1:45 PM EST Office Visit [facility] OPTOMETRY [address] [place] [address] TarkaDellaCristel, OD Hypermetropia, bilateral (Primary Dx); Dry eyes, bilateral 05/01/2025 Travel 05/01/[address] [facility] MED & PEDS [address] [facility] [place] [address] Airam Romero MD 03/29/[address] [facility] MEDICINE [address] [place] [address] Rossi Mota, TOMBSTONE SETTER 03/29/[address] [facility] MEDICINE [address] [place] [phone] Airam Romero MD Hx of fracture of lower leg; Chronic migraine without aura without status migrainosus, not intractable 03/16/[address] [facility] MEDICINE [address] [place] [address] Airam Romero MD 03/16/[address] [facility] MEDICINE [address] [place] [address] Airam Romero MD 03/09/[address] [facility] MEDICINE [address] [place] [address] Rossi Mota, TOMBSTONE SETTER Chronic migraine without aura without status migrainosus, not intractable 03/05/[address] [facility] MEDICINE [address] [place] [address] Airam Romero MD recall Dec. from Last 3 Months Immunizations Immunization Administration [...] Care Team (Late st Contact Info) Description 06/20/2025 9:30 AM EST Medication Management [facility] MEDICINE [address] [place] [phone] Shruthi Han, RylieD [address] [place] [phone] 08/23/2025 1:15 PM EDT Office Visit [facility] MEDICINE [address] [place] [phone] Airam Romero MD [address] [place], [place] [phone] Health Maintenance Due Date Last Done Comments CT Colonography 1974 Colonoscopy 1974 Colorectal Cancer Screening 1974 FIT DNA/Cologuard 1974 FIT 1974 FOBT 1974 Sigmoidoscopy 1974 Family Planning (PISQ) 1989 Mammogram 2014 RSV Patients and Patients Aged 60 years or older (1 - Risk 50-74 years 1-dose series) 2024 Zoster Vaccines (1 of 2) 2024 Depression Monitoring 11/27/2025 05/29/2025, 025 Alcohol/Substance Use Screening 12/27/2025 12/27/2024 Disability Screening 12/27/2025 12/27/2024 SDOH Screening 12/27/2025 12/27/2024 Cervical Cancer Screening 04/05/2026 HPV/Cotest 04/05/2026 04/05/2023 Pap Smear 04/05/2026 04/05/2023 Tobacco Screening 05/29/2026 05/29/2025 Lipid Panel 05/29/2030 05/29/2025, 10/20/2022 DTaP/Tdap/Td Vaccines (2 - Td or Tdap) 12/02/2032 12/02/2022 Pneumococcal Vaccine: 50+ Years Completed 12/02/2022 COVID-19 Vaccine Completed 05/29/2025, 01/2024, 04/03/2023, Additional history exists HIV Screening Completed 05/29/2025, 10/20/2022 Hepatitis B Vaccines Completed 05/29/2025, 04/21/20 24 Hepatitis C Screening Completed 05/29/2025, 023 Influenza Vaccine Completed 05/29/2025, , 04/02/2023 HIB [...] Procedure Name Priority Date/Time Associated Diagnosis Comments SLIDE REVIEW Routine 05/29/2025 1:29 PM EST GGT Routine 05/29/2025 1:29 PM EST Annual physical exam T-SPOT(R).TB Routine 05/29/2025 1:29 PM EST Annual physical exam T4, FREE Routine 05/29/2025 1:29 PM EST Annual physical exam TSH Routine 05/29/2025 1:29 PM EST Annual physical exam VITAMIN D,25-OH,TOTAL,IA Routine 05/29/2025 1:29 PM EST Annual physical exam SYPHILIS SCREEN Routine 05/29/2025 1:29 PM EST Annual physical exam LIPID PANEL, STANDARD Routine 05/29/2025 1:29 PM EST Annual physical exam HIV 1/2 ANTIGEN/ANTIBODY, FOURTH GENERATION W/RFL Routine 05/29/2025 1:29 PM EST Annual physical exam HEPATITIS C AB W/REFL TO HCV RNA, QN, PCR Routine 05/29/2025 1:29 PM EST Annual physical exam HEPATITIS B SURFACE ANTIGEN, EIA Routine 05/29/2025 1:29 PM EST Annual physical exam HEPATITIS B SURFACE ANTIBODY, QUALITATIVE Routine 05/29/2025 1:29 PM EST Annual physical exam HEPATITIS B CORE AB TOTAL Routine 05/29/2025 1:29 PM EST Annual physical exam HEMOGLOBIN A1C Routine 05/29/2025 1:29 PM EST Annual physical exam COMPREHENSIVE METABOLIC PANEL Routine 05/29/2025 1:29 PM EST Annual physical exam CBC WITH AUTO DIFFERENTIAL Routine 05/29/2025 1:29 PM EST Annual physical exam LD Routine 05/29/2025 1:29 PM EST Weight loss VITAMIN B12/FOLATE, SERUM PANEL Routine 05/29/2025 1:29 PM EST Numbness and tingling of left lower extremity POCT URINALYSIS DIPSTICK Routine 05/29/2025 12:20 PM EST Dysuria URINALYSIS, COMPLETE, WITH REFLEX TO CULTURE Routine 05/29/2025 11:30 AM EST Dysuria CHLAMYDIA/TRICHOMONAS/ NEISSERIA GONORRHOEAE, PCR, URINE Routine 05/29/2025 11:30 AM EST Annual physical exam HPV MRNA E6/E7 REFLEX TO HPV 16, 18/45 Routine 04/05/2023 1:54 PM EDT PAP SMEAR Routine 04/05/2023 1:54 PM EDT from Last 3 Months or Most Recently Relevant to Health Maintenance Results * Syphilis Screen (05/29/2025 1:29 PM EST) Syphilis Screen Nonreactive Nonreactive [facility] Blood 05/29/2025 1:29 PM EST 05/29/2025 4:04 PM EST us Airam Elkins MD LAB BLOOD ORDERAB LES Final Result Performing Organization Address [facility] Co de Phone Number [facility] [address] [place] [phone] * Slide Review (05/29/2025 1:29 PM EST) Slide Review VERIFIED [facility] 05/29/2025 1:29 PM EST 05/29/2025 4:04 PM EST Airam Elkins MD LAB BLOOD ORDERAB LES Final Result Performing Organization Address [facility] Co de Phone Number [facility] [address] [place] [phone] * Vitamin D, 25-Hydroxy, Total, Immunoassay (05/29/2025 1:29 PM EST) Vitamin D 25-OH Total 99.0 >30 ng/mL [facility] Comment: Health Based Reference Values*< 20 ng/mL Dizhcsnvz55-29 ng/mL Insufficient> 30 ng/mL Sufficient*Selma WALDRON. N Engl J Med. 2007;357:266-280There is no well-established upper level of normal vitamin Dlevels. Some laboratories use 50 ng/mL as an upper limit ofnormal. However, toxicity is patient-dependent and may occurat any level. Careful correlation with the patient'spresentation is necessary and, if there is concern forvitamin D toxicity, treatment should be consideredirrespective of the serum level.Care must be taken in interpreting Vitamin D results fromdifferent laboratories and methodologies. Published datademonstrated that results from patients undergoinghemodialysis may show a negative bias when tested withvarious automated 25-OH vitamin D assays when compared toLC-MS/MS.When testing samples from patients whose predominant form ofVitamin D is Vitamin D2, such as patients receiving VitaminD2 supplementation, results that are subtherapeutic shouldbe confirmed with another method such as LC-MS/MS. Blood Venous blood specimen / Unknown 05/29/2025 1:29 PM EST 05/29/2025 4:04 PM EST Airam Elkins MD LAB BLOOD ORDERAB LES Final Result [facility] [address] [place] [address] [phone] * (ABNORMAL) Vitamin B12/Folate, Serum Panel (05/29/2025 1:29 PM EST) Vitamin B12 >2,000(H ) 200 - 900 pg/mL [facility] Comment:NORMAL 200-900 PG/ML INDETERMINATE 160-199 PG/ML DEFICIENT < 160 PG/ML Folate 7.7 > or = 4.0 ng/mL [facility] Comment:Reference Values:> o r = 4.0 ng/mL< 4.0 ng/mL suggests folate deficiency Methotrexate, aminopterin and folinic acid(leucovorin) are chemotherapeutic agents whose molecularstructures are similar to folate; therefore, the Architectfolate assay cannot be used for patients using these drugs. Blood Venous blood specimen / Unknown 05/29/2025 1:29 PM EST 05/29/2025 4:04 PM EST Rossi Mota TOMBSTONE SETTER LAB BLOOD ORDERABLES Final Resu lt Performing Organization Address [facility]/ZIP Co de Phone Number [facility] [address] [place] [phone] * T-SPOT??.TB (05/29/2025 1:29 PM EST) T Spot TB Negative Negative [facility] Comment:A negative test resu lt does not exclude the possibilityof exposure to or infection with Mycobacteriumtuberculosis (M. tuberculosis). Patients with recentexposure to TB infected individuals exhibiting anegative T-SPOT.TB result should be considered forretesting within 6 weeks or if other relevant clinicalsymptoms indicate. Results from T-SPOT.TB testing mustbe used in conjunction with each individual'sepidemiological history, current medical status,and results of other diagnostic evaluations.The T-SPOT.TB test is qualitative and results arereported as positive, borderline, or negative, giventhat the test controls perform as expected. In linewith the Centers for Disease Control and Prevention's2010 recommendation to report quantitative measurementsalongside the qualitative result, the laboratoryprovides spot counts for informational purposes only.The T-SPOT.TB test should not be interpreted as aquantitative test. TS PANEL A 0 [facility] TS PANEL B 2 [facility] Negative Control Passed [facility] Positive Control Passed [facility] Comment:For additional infor lenora, please refer tohttp://education.TinyBytes/faq/GIG271(This link is being provided for informational/educational purposes only.)THIS TEST WAS PERFORMED AT:[employer] [id number] [place] [address]STRGDCTDAVID PAN MD,PHD 05/29/2025 1:29 PM EST 05/29/2025 4:04 PM EST Airam Elkins MD LAB BLOOD ORDERAB LES Final Result Performing Organization Address City/[facility]/ZIP Co de Phone Number [facility] [address] [place] [phone] [phone] * (ABNORMAL) CBC auto differential (05/29/2025 1:29 PM EST) White Blood Count 5.9 4.8 - 10.8 X10*3/uL [facility] Red Blood Count 4.27 4.20 - 5.50 X10*6/uL [facility] Hemoglobin 13.6 12.0 - 16.0 g/dl [facility] Hematocrit 42.3 37.0 - 47.0 % [facility] Mean Corpuscular Volume 99.1(H) 80.0 - 98.0 fL [facility] Mean Corpuscular Hemoglobin 31.9 27.0 - 33.0 pg [facility] Mean Corpuscular HGB Conc 32.2 31.0 - 35.0 g/dl [facility] Red Cell Distribution Width 12.0 11.0 - 16.0 % [facility] Platelet Count 200 160 - 400 X10*3/uL [facility] Mean Platelet Volume 13.3(H) 9.4 - 12.3 fL [facility] Neutrophils Percent Auto 51.0 45 - 73 % [facility] Imm Gran Pct Auto 0.7(H) 0.0 - 0.4 % [facility] Lymphocytes Percent Auto 38.7 20 - 40 % [facility] Monocytes Percent Auto 6.1 2 - 11 % [facility] Eosinophils Percent Auto 2.5 0 - 4 % [facility] Basophils Percent Auto 1.0 0 - 2 % [facility] NRBC Pct Auto 0.0 0.0 - 0.2 /100WBC [facility] Neutrophils Absolute Auto 3.0 2.0 - 8.3 x10*3/uL [facility] Imm Gran Abs Auto 0.04(H) 0.00 - 0.03 X10*3/uL [facility] Lymphocytes Absolute Auto 2.3 1.2 - 4.9 X10*3/uL [facility] Monocytes Absolute Auto 0.4 0.1 - 1.2 X10*3/uL [facility] Eosinophils Absolute Auto 0.2 0.0 - 0.4 X10*3/uL [facility] Basophils Absolute Auto 0.1 0.0 - 0.2 X10*3/uL [facility] NRBC Abs Auto 0.000 0.0 - 0.012 X10*3/uL [facility] Blood Venous blood specimen / Unknown 05/29/2025 1:29 PM EST 05/29/2025 4:04 PM EST Airam Elkins MD LAB BLOOD ORDERAB LES Edited Result - Final Performing Organization Address [facility]/ZIP Co de Phone Number [facility] [address] [place] [phone] * Hepatitis C Antibody with Reflex to HCV, RNA, Quantitative, Real-Time PCR (05/29/2025 1:29 PM EST) Hepatitis C Antibody Nonreactive Nonreactive [facility] Comment:Antibodies to HCV no t detected; does not exclude early acuteHCV infection. Blood Venous blood specimen / Unknown 05/29/2025 1:29 PM EST 05/29/2025 4:04 PM EST us Airam Elkins MD LAB BLOOD ORDERAB LES Final Result Performing Organization Address City/[facility]/ZIP Co de Phone Number [facility] [address] [place] [phone] * Hepatitis B surface antigen, EIA (05/29/2025 1:29 PM EST) Hepatitis B Surface Ag Negative Negative [facility] Blood Venous blood specimen / Unknown 05/29/2025 1:29 PM EST 05/29/2025 4:04 PM EST Airam Elkins MD LAB BLOOD ORDERAB LES Final Result Performing Organization Address City/[facility]/ZIP Co de Phone Number [facility] [address] [place] [phone] * Hepatitis B Core Antibody, Total (05/29/2025 1:29 PM EST) Hepatitis B Core Antibody Nonreactive Nonreactive [facility] Blood Venous blood specimen / Unknown 05/29/2025 1:29 PM EST 05/29/2025 4:04 PM EST us Airam Elkins MD LAB BLOOD ORDERAB LES Final Result Performing Organization Address [facility]/ZIP Co de Phone Number [facility] [address] [place] [phone] * HIV-1/2 Antigen and Antibodies, Fourth Generation, with Reflexes (05/29/2025 1:29 PM EST) HIV AB/AG Nonreactive Nonreactive [facility] Comment:HIV-1 p24 Ag and/or HIV-1/HIV-2 Ab not detected.A test result that is nonreactive does not exclude thepossibility of exposure to or infection with HIV-1 and/orHIV-2. Nonreactive results in this assay for individualswith prior exposure to HIV-1 and/or HIV-2 may be due toantigen and antibody levels that are below the limit ofdetection of this assay.The [employer] HIV Ag/Ab Combo assay result andsupplemental assay results should be interpreted inconjunction with the patient's clinical presentation,history and other laboratory results. If the results areinconsistent with clinical evidence, additional testing issuggested to confirm the result. Blood Venous blood specimen / Unknown 05/29/2025 1:29 PM EST 05/29/2025 4:04 PM EST us Airam Elkins MD LAB BLOOD ORDERAB LES Final Result Performing Organization Address City/[facility]/ZIP Co de Phone Number [facility] [address] [place] [address] [phone] * Hepatitis B Surface Antibody, Qualitative (05/29/2025 1:29 PM EST) ~Hepatitis B Surface Antibody REACTIVE Nonreactive [facility] Comment:REACTIVE: > 11.99 mI U/mL Blood Venous blood specimen / Unknown 05/29/2025 1:29 PM EST 05/29/2025 4:04 PM EST us Airam Elkins MD LAB BLOOD ORDERAB LES Final Result Performing Organization Address City/[facility]/ZIP Co de Phone Number [facility] [address] [place] [phone] * TSH (05/29/2025 1:29 PM EST) Pathologist [facility] Thyroid Stimulating Hormone 0.60 0.32 - 4.0 uIU/mL [facility] Comment:TSH 3rd Generation ( [facility]) Blood Venous blood specimen / Unknown 05/29/2025 1:29 PM EST 05/29/2025 4:04 PM EST us Airam Elkins MD LAB BLOOD ORDERAB LES Final Result Performing Organization Address [facility] Co de Phone Number [facility] [address] [place] [address] [phone] * T4, Free (05/29/2025 1:29 PM EST) Pathologist [facility] Free T4 (Free Thyroxine) 0.71 0.71 - 1.85 ng/dL [facility] Blood Venous blood specimen / Unknown 05/29/2025 1:29 PM EST 05/29/2025 4:04 PM EST us Airam Elkins MD LAB BLOOD ORDERAB LES Final Result Performing Organization Address [facility] Co de Phone Number [facility] [address] [place] [phone] * (ABNORMAL) Lactate Dehydrogenase (LD) (05/29/2025 1:29 PM EST) Lactate Dehydrogenase 306(H) 122 - 220 U/L [facility] Blood Venous blood specimen / Unknown 05/29/2025 1:29 PM EST 05/29/2025 4:04 PM EST Airam Elkins MD LAB BLOOD ORDERAB LES Final Result Performing Organization Address City/[facility]/ZIP Co de Phone Number [facility] [address] [place] [address] [phone] * Hemoglobin A1c (05/29/2025 1:29 PM EST) Hemoglobin A1c 5.3 <6.0 % [facility] Comment:Hemoglobin A1C Refer ence Range Adults: 4.8 - 6.0 % Non diabetic: < 6.0 % Goal: < 7.0 %Additional Action Suggested: > 8.0 %Note: Hemoglobin A1c results are invalid for patients with abnormal amounts of HbF. Blood transfusions may impact the HbA1c concentration in the patient sample. Estimated Average Glucose 105 mg/dL [facility] Comment:eAG = Estimated ave rage glucose which is %A1C expressed asaverage glucose, using the formula of the V7I-CvflodnDkglond Glucose study (ADAG), Diabetes Care, Vol.31,#8,Jan. 2007 Blood Venous blood specimen / Unknown 05/29/2025 1:29 PM EST 05/29/2025 4:04 PM EST us Airam Elkins MD LAB BLOOD ORDERAB LES Final Result Performing Organization Address City/[facility]/ZIP Co de Phone Number [facility] [address] [place] [phone] * (ABNORMAL) Gamma Glutamyl Transferase (GGT) (05/29/2025 1:29 PM EST) Gamma Glutamyl Transpeptidase 40(H) 7 - 33 U/L [facility] Blood Venous blood specimen / Unknown 05/29/2025 1:29 PM EST 05/29/2025 4:04 PM EST us Airam Elkins MD LAB BLOOD ORDERAB LES Final Result Performing Organization Address [facility] Co de Phone Number [facility] [address] [place] [address] [phone] * (ABNORMAL) Lipid Panel, Standard (05/29/2025 1:29 PM EST) Triglycerides 119 <150 mg/dL [facility] Comment:Desirable Triglyceri de: less than 150 mg/dLBorderline High Triglyceride 150-199 mg/dLHigh Triglyceride: 200-499 mg/dLVery High Triglyceride: greater than or equal to 5OO mg/dL Cholesterol 217(H) <200 mg/dL [facility] Comment:Desirable Cholestero l: less than 200 mg/dLBorderline High Cholesterol: 200-239 mg/dLHigh Cholesterol: greater than 239 mg/dL LDL Cholesterol Calculated 126(H) <100 mg/dL [facility] Comment:Desirable LDL: less than 100 mg/dLNear Optimal/Above Optimal LDL: 110- 129 mg/dLBorderline High LDL: 130-159 mg/dLHigh LDL: 160-189 mg/dLVery High LDL: greater than or equal to 190 mg/dL HDL Cholesterol 68 >40 mg/dL [facility] Comment:Desirable HDL: great er than 40 mg/dL Note: This HDL assay may give artificially low results in patients with liver disease. Blood Venous blood specimen / Unknown 05/29/2025 1:29 PM EST 05/29/2025 4:04 PM EST us Airam Elkins MD LAB BLOOD ORDERAB LES Final Result Performing Organization Address City/[facility]/ZIP Co de Phone Number [facility] [address] [place] [address] [phone] * (ABNORMAL) Comprehensive Metabolic Panel (05/29/2025 1:29 PM EST) Sodium 140 135 - 145 mmol/L [facility] Potassium 4.0 3.3 - 5.1 mmol/L [facility] Chloride 106 96 - 108 mmol/L [facility] Carbon Dioxide 26 22 - 29 mmol/L [facility] Anion Gap 12 12 - 20 [facility] Urea Nitrogen (BUN) 29(H) 9 - 16 mg/dL [facility] Creatinine, Serum 0.59 0.5 - 1.4 mg/dL [facility] Estimated Glomerular Filt Rate >60 [facility] Comment:Chronic Kidney Disea se: Estimated GFR < 60 mL/min/1.52a2Uvtsyb Kidney Disease: Estimated GFR < 15 mL/min/1.73m2 Glucose 91 60 - 115 mg/dL [facility] Calcium 10.2 8.4 - 10.2 mg/dL [facility] Bilirubin, Total 0.4 0.0 - 1.0 mg/dL [facility] Aspartate Amino Transferase 28 5 - 31 U/L [facility] Alanine Aminotransferase 21 0 - 31 U/L [facility] Total Protein 8.2(H) 6.5 - 8.0 g/dL [facility] Albumin Level 5.2(H) 3.5 - 5.0 g/dL [facility] Alkaline Phosphatase 141(H) 39 - 117 U/L [facility] Blood Venous blood specimen / Unknown 05/29/2025 1:29 PM EST 05/29/2025 4:04 PM EST us Airam Elkins MD LAB BLOOD ORDERAB LES Final Result [facility] [address], [place] [phone] * (ABNORMAL) POCT Urinalysis (05/29/2025 12:20 [...] Media Lot # [id number] Lot# Expiration Date 659 Urine (Urine, Random) 05/29/2025 12:20 PM EST Airam Elkins MD POINT OF CARE ZAHIRA T ENTER/EDIT ORDERABLES Final Result * Chlamydia/Trichomonas/Neisseria gonorrhoeae, PCR, Urine (05/29/2025 11:30 AM EST) CT PCR, Urine NOT DETECTED Not Detect. [facility] Comment:A not detected test result does not exclude the possibilityof infection because test results can be affected byimproper specimen collection, concurrent antibiotic therapy,or the number of organisms in the specimen which may bebelow the sensitivity of the test. As with many diagnostictests, results from the Xpert CT/NG assay should beinterpreted in conjunction with other laboratory andclinical data available to the clinician.The Xpert CT/NG assay should not be used for the evaluationof suspected sexual abuse or for other medico-legalindications. Additional testing is recommended in anycircumstance when false positive or false negative resultscould lead to adverse medical, social or psychologicalconsequences. NG PCR, Urine NOT DETECTED Not Detect. [facility] Comment:A not detected test result does not exclude the possibilityof infection because test results can be affected byimproper specimen collection, concurrent antibiotic therapy,or the number of organisms in the specimen which may bebelow the sensitivity of the test. As with many diagnostictests, results from the Xpert CT/NG assay should beinterpreted in conjunction with other laboratory andclinical data available to the clinician.The Xpert CT/NG assay should not be used for the evaluationof suspected sexual abuse or for other medico-legalindications. Additional testing is recommended in anycircumstance when false positive or false negative resultscould lead to adverse medical, social or psychologicalconsequences. Urine (Urine, Random) 05/29/2025 11:30 AM EST 05/29/2025 4:15 PM EST Airam Elkins MD LAB URINE ORDERAB LES Final Result Performing Organization Address [facility] Co de Phone Number [facility] [address] [place] [address] [phone] * Urinalysis, Complete, with Reflex to Culture (05/29/2025 11:30 AM EST) Color Urine Yellow [facility] Appearance Urine Cloudy [facility] PH 6.5 5.0 - 9.0 [facility] Glucose Urine UA Negative Negative mg/dL [facility] Urine Blood Negative Negative [facility] Specific Conde - Urine 1.020 1.005 - 1.025 [facility] Urine Protein Negative Neg-Trace mg/dL [facility] Urine Ketones Negative Negative mg/dL [facility] Nitrite Urine Negative Negative [facility] Leukocyte Esterase Urine Negative Negative [facility] RBC Urine 0-2 0 - 2 /HPF [facility] Urine WBC 0-5 0 - 5 /HPF [facility] Urine Squamous Epithelial Cell 0-2 0 - 2 /HPF [facility] Urine Bacteria None Seen None Seen [facility] Hyaline Casts, Urine 0-2 0 - 2 /LPF [facility] Urine 05/29/2025 11:3 0 AM EST 05/29/2025 4:15 PM EST Narrative [facility] - 05/29/2025 5:04 PM EST Urine, Clean Catch Airam Elkins MD LAB URINE ORDERAB LES Final Result Performing Organization Address [facility] Co de Phone Number [facility] [address] [place] [phone] * HPV mRNA E6/E7 w/Reflex to HPV Genotypes 16, 18/45 (04/05/2023 1:54 PM EDT) HPV nRNA E6/E7 Not Detected Not Detected [facility] Comment:Methodology: Transcr iption-Mediated AmplificationThis assay detects E6/E7 viral messenger RNA (mRNA) from 14high-risk HPV types (16,18,31,33,35,39,45,51,52,56,58,59,66,68).Cervical sources are required for HPV testing.If a vaginal source from a patient who has had atotal hysterectomy with removal of cervix wassubmitted, please contact the testing laboratoryfor alternative testing options.For additional information, please refer [email or web address].[employer]iny[employer]/faq/SSZ332x5(This link if provided for information/educational purposes only.)THIS TEST WAS PERFORMED AT:[facility] [place] [phone] CRUM MD HPV mRNA E6/E7 [facility] HPV 16 RNA [facility] HPV 18/45 RNA [facility] 04/05/2023 1:54 PM EDT 04/06/2023 7:00 AM EDT Adriano Hitchcock [facility] CYTOLOGY ORDERABLES F inal Result [facility] [address] [place] [phone] * Pap Smear (04/05/2023 1:54 PM EDT) 04/05/2023 1:54 PM EDT 04/06/2023 7:00 AM EDT Narrative [facility] - 04/09/2023 11:37 AM EDT ----- ------- Name: Cristel Cobian Age/Sex: 47/F : 1975 Unit#: [id number] Attend Dr: ADRIANO HITCHCOCK CNM Re04/05/23 Status: [facility] REF Location: [facility] Disch: ----- ------- SPEC : [id number] RECD: 04/06/23 STATUS: STAN INFANTE NUM: [id number] KEIRY: 04/05/[address] [facility] [address]: ADRIANO HITCHCOCK [facility] ENTERED: 04/06/23 SP TYPE: Pap Smr OTHR [...] 59, 66, 68) HPV testing performed by [employer] [place], [place]. See reference laboratory portion of the EMR for entire report. Clinical Information LMP: Unknown date Previous PAP test: Unknown date, WNL Other history: Previous pap NIL/HPV neg, preceded by ASCUS/HPV neg Material Received ThinPrep-Cervical ----- ------- Signed (signature on file) Carla [place] 04/09/23 1137 ----- ------- END OF REPORT us Adriano Hitchcock [facility] CYTOLOGY ORDERABLES F inal Result [facility] [address] [place] [address] [phone] from Last 3 Months or Most Recently Relevant to Health Maintenance Insurance C3 Care Teams Flow Floor Attendant Relationship Specialty Start Date End Date Airam Romero MD [address] [place] [address] PCP - General Internal Medicine 12/16/22 Fred Dotson FNP [address] [place] [address] Nurse Practitioner Family Medicine 05/10/23
--- OUTSIDE RECORDS SUMMARY | 2025-06-04 10:09 | XMS_ITS | Patient Health Record ---
Author Organization [facility] Primary Care Address [address] [place] [address] Care Team Providers Care Lead Web Application Developer Name Role Phone Not Selected, Physician Unavailable Unavaila ble Migration, Provider Unavailable Unavailable Reason For Referral No Information Medications Medication SIG (Take, Route, Frequency, Duration) Notes Start Date End Date Status Pain Reliever 500 mg tablet *Pick strength-form from [facility] for eRX* 05/01/2019 Active fluticasone propionate 50 mcg/actuation nasal spray,suspension *Reorder from [facility] for eRx and Interaction Alerts* 03/27/2020 Active Gabapentin 600 mg tablet 04/12/2019 Active buspirone 15 mg tablet *Reorder from [facility] for eRx and Interaction Alerts* 09/25/2019 Active pantoprazole 40 mg tablet,delayed release (DR/EC) *Reorder from [facility] for eRx and Interaction Alerts* 03/13/2020 Active Tylenol Extra Strength 500 mg tablet 05/01/2019 Active Suphedrine 30 mg tablet *Reorder from [facility] for eRx and Interaction Alerts* 03/27/2020 Active Topamax 25 mg tablet 04/12/2019 Active HYDROcodone-Acetaminoph en 5-325 mg tablet 03/27/2020 Active quetiapine 400 mg tablet *Reorder from [facility] for eRx and Interaction Alerts* 09/25/2019 Active Azithromycin 250 mg tablet 04/01/2020 Active Augmentin 500-125 mg tablet 03/13/2020 Active SUMAtriptan Succinate 50 mg tablet 09/25/2019 Active PROzac 40 mg capsule 09/25/2019 Active Trazodone HCl 100 MG Tablet *Reorder from [facility] for eRx and Interaction Alerts* 09/25/2019 Active OLANZapine 10 mg tablet 10/10/2018 Active blood-glucose meter misc *Reorder from [facility] for eRx and Interaction Alerts* 05/01/2019 Active Mobic 7.5 mg tablet *Reorder fro [facility] for eRx and Interaction Alerts* 09/25/2019 Active Famotidine 20 mg tablet 03/15/2020 Active Sucralfate 1 gram tablet *Pick strength-form from [facility] for eRX* 03/13/2020 Active atorvastatin 10 mg tablet *Reorder from [facility] for eRx and Interaction Alerts* 01/26/2019 Active tizanidine 4 mg tablet *Reorder from [facility] for eRx and Interaction Alerts* 03/13/2020 Active butalbital-acetaminophe n-caff 50-325-40 mg capsule *Reorder from [facility] for eRx and Interaction Alerts* 01/26/2019 Active CYCLOBENZAPRINE 10MG TABLETS *Reorder from [facility] for eRx and Interaction Alerts* 06/04/2020 Active blood sugar diagnostic strip *Reorder from [facility] for eRx and Interaction Alerts* 05/01/2019 Active Loratadine 10 mg tablet 03/13/2020 Active Diclofenac Sodium 75 mg tablet,delayed release (DR/EC) *Pick strength-form from [facility] for eRX* 09/25/2019 Active BUSPIRONE 15MG TABLETS *Reorder from [facility] for eRx and Interaction Alerts* 06/04/2020 Active Lancets 30 gauge misc 05/01/2019 Active Claritin 10 mg tablet 09/26/2019 Active Problems Problem Type SNOMED Code ICD Code Onset Dates Problem Status W/U Status Risk Notes Problem Malignant tumor of urinary bladder (655056338) Malignant neoplasm of bladder, unspecified (C67.9) Active confirmed Problem Hypothyroidism (41741059) Hypothyroidism, unspecified (E03.9) 05/01/20 19 Active confirmed Problem Type II diabetes mellitus without complication (860017751) Type 2 diabetes mellitus without complications (E11.9) Active confirmed Problem Bipolar disorder (85814803) Bipolar disorder, unspecified (F31.9) 05/18/20 19 Active confirmed Problem Lumbar radiculopathy (221749586) Radiculopathy, lumbar region (M54.16) Active confirmed Problem Low back pain (337518269) Low back pain (M54.5) Active confirmed Problem Headache (24412779) Headache (R51) Active confirmed Encounters Encounter Location Date Provider Diagnosis [facility] Primary Care [address] [place] [address] 08/26/2024 Provider Migration [facility] Primary Care [address] [place] [address] 08/27/2024 Provider Migration Plan Of Treatment No Information Insurance Providers Payer Name Payer Address Payer Phone Subscriber Number Group Number Insured Name Patient Relationship to Insured Coverage Start Date Coverage End Date [facility] [address] [address] [place] [address] [id number] LUZMA NGUYỄN Self - patient is the insured
--- OUTSIDE RECORDS SUMMARY | 2025-06-04 10:09 | XMS_ITS | Encounter Summary ---
Author Organization [employer] Address [address] [facility] 7t [place] [address] Care Team Providers Care Coal Inspector Name Role Phone Airam Romero MD Primary Care Pro vider Fred Dotson Unavailable Unavailable Reason for Visit * Reason Comments Med Refill Encounter Details Date Type Department Care Team (Late st Contact Info) Description 12/03/2024 Refill [facility] [address] [place], [place] [phone] Des Jenkins MD [address] [place] [address] Hx of fracture of lower leg Social [...] the past 12 months, has t he [employer], gas, oil or water company threatened to [...] Description 06/20/2025 9:30 AM EST Medication Management [facility] [address] [place] [phone] Shruthi Han, PharmD [address] [place] [phone] 08/23/2025 1:15 PM EDT Office Visit [facility] [address] [place] [address] Airam Romero MD [address] [place] [phone] documented as of this encounter Goals Goal Patient Goal Type Associated Problems Recent Progress Patient-Stated? Author Patient will adhere to medication regimen General Rosy Wilson Keep your medical appointments Lifestyle Rosy Wilson documented as of this encounter Visit Diagnoses Diagnosis Hx of fracture of lower leg documented in this encounter Additional Health Concerns Assessment Noted Time PHQ-9 Depression Total Score: 12 024 3:49 PM EDT documented as of this encounter Care Teams Coal Inspector Relationship Specialty Start Date End Date Airam Romero MD [address] [place] [address] PCP - General Internal Medicine 12/16/22 Fred Dotson FNP [address] [place] [address] Nurse Practitioner Family Medicine 05/10/23 documented as of this encounter
--- OUTSIDE RECORDS SUMMARY | 2025-06-04 10:09 | XMS_ITS | Encounter Summary ---
Author Organization [employer] Address [address] [facility] [address] [facility] [address] [place] [address] Care Team Providers Care Lead Burner Apprentice Name Role Phone Airam Romero MD Primary Care Pro vider Fred Dotson Unavailable Unavailable Reason for Visit * Reason Comments Med Refill Encounter Details Date Type Department Care Team (Late st Contact Info) Description 02/08/2025 Refill [facility] [address] [place], [place] [phone] Tania Avila MD [address] [place] [address] Social History Tobacco Use Types Packs/Day Years [...] the past 12 months, has t he [employer], gas, oil or water company threatened to [...] Description 06/20/2025 9:30 AM EST Medication Management [address] [address] Shruthi Han, PharmD [address] [place] [phone] 08/23/2025 1:15 PM EDT Office Visit [facility] [address] [place] [address] Airam Romero MD [address] [place] [address] [phone] documented as of this encounter Goals Goal [...] documented as of this encounter Care Teams Lead Burner Apprentice Relationship Specialty Start Date End Date Airam Romero MD [address] [place] [address] PCP - General Internal Medicine 12/16/22 Fred Dotson FNP [address] [place] [address] Nurse Practitioner Family Medicine 05/10/23 documented as of this encounter
--- OUTSIDE RECORDS SUMMARY | 2025-06-04 10:09 | XMS_ITS | Encounter Summary ---
Author Organization [employer] Address [address] [facility] [address] [place] [address] Care Team Providers Care Rehab Rn Name Role Phone Airam Romero MD Primary Care Pro vider Fred Dotson Unavailable Unavailable Encounter Details Date Type Department Care Team ([facility] st Contact Info) Description 03/02/2025 Results Follow-Up [facility] [address] [place], [place] [phone] Rossi Mota NP [address] [place] [address] Magnesium, CBC auto differential, Basic Metabolic Panel, Additional followed-up results: 3 Social History Tobacco Use Types Packs/Day Years [...] the past 12 months, has t he [employer], gas, oil or water company threatened to [...] encounter Miscellaneous Notes * Telephone Encounter - Luz Elena Rosa RN - 05/31/2025 10:02 AM EST Vitamin B-12 levels was already addressed by green team nurses under encounters on 05/30/25. Pt is to follow up with PCP as needed. * Telephone Encounter - Tamiko Vargas RN - 03/05/2025 12:07 PM EDT T/C to pt. Advised pt of message from SOFTWARE APPLICATION TESTER re: lab results and prescription. Recommended that pt rtcif no improvement * Telephone Encounter - Tamiko Vargas RN - 03/05/2025 11:59 AM EDT ----- Message from Rossi Mota sent at 03/02/2025 4:44 PM EDT ----- Please inform patient lab results suggest mild iron deficiency. This does not completely justify her paresthesia, however she can try iron supplementation and assess for improvement. I have sent prescription to pharmacy. She may follow-up with PCP if symptoms are still present. Thanks ----- Message ----- From: Interface, Lab Results In Sent: 12/27/2024 1:57 PM EDT To: Rossi Mota NP documented in this encounter Plan of Treatment Upcoming Encounters Date Type Department Care Team (Late st Contact Info) Description 06/20/2025 9:30 AM EST Medication Management [address] [address] Shruthi Han, PharmD [address] [place] [address] 08/23/2025 1:15 PM EDT Office Visit [facility] [address] [place] [phone] Airam Romero MD [address] [place] [address] documented as of this encounter Goals Goal [...] documented as of this encounter Care Teams Rehab Rn Relationship Specialty Start Date End Date Airam Romero MD [address] [place] [address] PCP - General Internal Medicine 12/16/22 Fred Dotson FNP [address] [place] [address] Nurse Practitioner Family Medicine 05/10/23 documented as of this encounter
--- OUTSIDE RECORDS SUMMARY | 2025-06-04 10:09 | XMS_ITS | Patient Health Record ---
Author Organization [facility] Prim [facility] [place] Address [address] [place] [address] Care Team Providers Care Cut Lace Machine Operator Name Role Phone SARAH ORTIZ Unavailable [phone] Reason For Referral No Information Medications Medication [...] Status W/U Status Risk Notes Problem Hypothyroidism (09925555) Hypothyroidism, unspecified (E03.9) Active confirmed Problem Diabetes insipidus (0458391242) Diabetes insipidus (E23.2) Active confirmed Problem Mixed hyperlipidemia (260941467) Mixed hyperlipidemia (E78.2) Active confirmed Problem Tobacco user (843451295) Nicotine dependence, cigarettes, uncomplicated (F17.210) Active confirmed Problem Insomnia (245839245) Insomnia, unspecified (G47.00) Active confirmed Problem Insomnia (794585051) Insomnia due to medical condition (G47.01) Active confirmed Problem Essential hypertension (16355258) Essential (primary) hypertension (I10) Active confirmed Problem Acute upper respiratory infection (45272391) Acute upper respiratory infection, unspecified (J06.9) Active confirmed Problem Acute severe exacerbation of mild persistent asthma (disorder) (013738851) Mild persistent asthma with status asthmaticus (J45.32) Active confirmed Problem Cough (58670748) Cough (R05) Active confirmed Problem Adult health examination (639729262) Encounter for general adult medical examination without [...] Insured Coverage Start Date Coverage End Date [facility] [address] [address] [place] [address] [phone] [id number] Cristel Lepe Self - patient is the insured Medical (General) History Medical History History ICD Code diabetes, type II asthma arthritis insonmia Surgical History Surgery Date(Month/Year) Galbladder tonsillectomy tubal ligation 2007
--- OUTSIDE RECORDS SUMMARY | 2025-06-04 10:09 | XMS_ITS | Encounter Summary ---
Author Organization [employer] Address [address] [facility] 7 [place] [address] Care Team Providers Care Mid Level Provider Name Role Phone Airam Romero MD Primary Care Pro vider Fred Dotson Unavailable Unavailable Reason for Visit * Reason Comments Med Refill Encounter Details Date Type Department Care Team (Late st Contact Info) Description 02/08/2025 Refill [facility] [address] [place], [place] [phone] Airam Romero MD [address] [place] [address] Social History Tobacco Use Types Packs/Day Years [...] the past 12 months, has t he [employer], gas, oil or water company threatened to [...] Description 06/20/2025 9:30 AM EST Medication Management [address] [address] Shruthi Han, PharmD [address] [place] [address] 08/23/2025 1:15 PM EDT Office Visit [facility] [address] [place] [address] Airam Romero MD [address] [place] [address] [phone] documented as of this encounter Goals Goal [...] documented as of this encounter Care Teams Mid Level Provider Relationship Specialty Start Date End Date Airam Romero MD [address] [place] [address] PCP - General Internal Medicine 12/16/22 Fred Dotson FNP [address] [place] [address] Nurse Practitioner Family Medicine 05/10/23 documented as of this encounter
--- OUTSIDE RECORDS SUMMARY | 2025-06-04 10:09 | XMS_ITS | Encounter Summary ---
Author Organization [employer] Address 75 [facility] 7t [place] [address] Care Team Providers Care Service Mechanic Name Role Phone Airam Romero MD Primary Care Pro vider Fred Dotson Unavailable Unavailable Reason for Visit * Reason Onset Date Comments Results 05/30/2025 Encounter Details Date Type Department Care Team (Latest Contact Info) Description 05/30/2025 Results Follow-Up [facility] [address] [place] [address] Airam Romero MD [address] [place] [address] POCT Urinalysis, Chlamydia/Trichomonas/ Neisseria gonorrhoeae, PCR, Urine, Lactate Dehydrogenase (LD), Additional followed-up results: 14 Social History Tobacco Use Types Packs/Day Years [...] encounter Miscellaneous Notes * Telephone Encounter - Zeynep Sawyer RN - 05/31/2025 9:42 AM EST TC placed to the pt to inform of the plan of care and blood work results below as stated by PCP. Ptinformed that UA was negative with no sign of infection. Vitamin B12 elevated and pt was asked if currently taking any B12 supplementation and the pt stated yes. The pt was instructed to lower current dose or stop taking and PCP will recheck levels in a few months time. The pt was agreeable to this. Pt informed of albumin, ALK and TP elevation but informed that these are non specific and do not necessarily explain the cause of the pt current weight loss. The pt was highly encouraged to have CT of Pelvis and Chest done as soon as possible and to call back the office if there are any scheduling concerns in the future. Pt also given the number for [facility] Centralized Scheduling. Finally, pt informed of normal thyroid function and that there is no need to continue on the levothyroxine. Pt advised that PCP will monitor labs in the next three months. ----- Message from Airam Elkins MD sent at 05/30/2025 2:55 PM EST ----- Please inform pt that from blood tests done yesterday -UA negative ,no infection -vit B12 level elevated at 2000 -MCV 99.1 ,no anemia ,total protein and albumin mild elevated , LHDelevated at 306-Alk phos elevated 141,GGT 40<--49 -TFT wnl,vit D wnl -LDL 126, total ch 217, HDL 68 --ASCVD 1.6% ( no indication for statins) -hep B immune -pd T-spot , hep B ag and bone phos alk --will inform pt if abnormal --- -please check if pt is taking any OTC vit B12 ? -if she is ,please explain there is no need to takevit B12 or can decrease dose given elevated level -from rest of above abnormal findings non specific and in current evaluation to r/o causes of her weight loss -please encourage to get images ordered yesterday ( CT chest, CT abdominal/pelvis, barium swallow and MM) -please advise pt to call clinic if having issues scheduling images -normal TFT no need to continue levothyroxine -will monitor TFT in 3 months -advised healthy low fat diet for mild elevate cholesterol Thanks ----- Message ----- From: Birdie Desai MA Sent: 05/29/2025 12:21 PM EST To: Airam Elkins MD * Result Encounter Note - Airam Elkins MD - 05/30/2025 2:55 PM EST Please inform pt that from blood tests done yesterday -UA negative ,no infection -vit B12 level elevated at 2000 -MCV 99.1 ,no anemia ,total protein and albumin mild elevated , LHDelevated at 306-Alk phos elevated 141,GGT 40<--49 -TFT wnl,vit D wnl -LDL 126, total ch 217, HDL 68 --ASCVD 1.6% ( no indication for statins) -hep B immune -pd T-spot , hep B ag and bone phos alk --will inform pt if abnormal --- -please check if pt is taking any OTC vit B12 ? -if she is ,please explain there is no need to takevit B12 or can decrease dose given elevated level -from rest of above abnormal findings non specific and in current evaluation to r/o causes of her weight loss -please encourage to get images ordered yesterday ( CT chest, CT abdominal/pelvis, bariumswallow and MM) -please advise pt to call clinic if having issues scheduling images -normal TFT no need to continue levothyroxine -will monitor TFT in 3 months -advised healthy low fat diet for mild elevate cholesterol Thanks documented in this encounter Plan of Treatment Upcoming Encounters Date Type Department Care Team (Late st Contact Info) Description 06/20/2025 9:30 AM EST Medication Management [address] [address] Shruthi Han, PharmD [address] [place] [address] 08/23/2025 1:15 PM EDT Office Visit [address] [address] Airam Romero MD [address] [place] [address] documented as of this encounter Goals Goal [...] documented as of this encounter Care Teams Service Mechanic Relationship Specialty Start Date End Date Airam Romero MD [address] [place] [address] PCP - General Internal Medicine 12/16/22 Fred Dotson FNP [address] [place] [address] Nurse Practitioner Family Medicine 05/10/23 documented as of this encounter
--- OUTSIDE RECORDS SUMMARY | 2025-06-04 10:10 | XMS_ITS | Patient Health Record ---
Author Organization [facility] Address [address] [facility] [address] [place] [address] Support Name Relationship Address Phone Mango Cristel Guarantor Unknown [phone] Allergies No Known Allergies Reason For Referral [...] W/U Status Risk Notes Problem Lumbar radiculopathy (886408138) Radiculopat hy, lumbar region (M54.16) Active confirmed Problem Low back pain ([id number]) Low back pain (M54.5) Active confirmed Plan Of Treatment No Information Insurance Providers Payer Name Payer Address Payer Phone Subscriber Number Group Number Insured Name Patient Relationship to Insured Coverage Start Date Coverage End Date [facility] [employer] [address] [address] [place] [address] [phone] [id number] MADAYAMBERLY Cristel Cobian Self - patient is the insured 7 8
--- OUTSIDE RECORDS SUMMARY | 2025-06-04 10:10 | XMS_ITS | Encounter Summary ---
Author Organization [employer] Address 75 [facility] 7t [place] [address] Care Team Providers Care Rd Mechanical Engineer Name Role Phone Airam Romero MD Primary Care Pro vider Fred Dotson Unavailable Unavailable Reason for Visit * Reason Comments Med Refill Encounter Details Date Type Department Care Team (Late st Contact Info) Description 05/19/2023 Refill [facility] [address] [place], [place] [phone] Airam Romero MD [address] [place] [address] Hx of fracture of lower leg Social [...] Description 06/20/2025 9:30 AM EST Medication Management [facility] [address] [place] [address] Shruthi Han, PharmD [address] [place] [address] 08/23/2025 1:15 PM EDT Office Visit [address] [address] Airam Romero MD [address] [place] [address] documented as of this encounter Goals Goal [...] documented as of this encounter Care Teams Rd Mechanical Engineer Relationship Specialty Start Date End Date Airam Romero MD [address] [place] [address] PCP - General Internal Medicine 12/16/22 Fred Dotson FNP [address] [place] [address] Nurse Practitioner Family Medicine 05/10/23 documented as of this encounter
--- OUTSIDE RECORDS SUMMARY | 2025-06-04 10:10 | XMS_ITS | Encounter Summary ---
Author Organization [employer] Address 75 [facility] 7t [place] [address] Care Team Providers Care Customer Success Director Name Role Phone Airam Romero MD Primary Care Pro vider Fred Dotson Unavailable Unavailable Reason for Visit * Reason Onset Date Comments CT ABD/PELVIS ORDER 05/30/2025 Encounter Details Date Type Department Care Team (Late st Contact Info) Description 05/30/2025 Telephone [employer] [address] [place], [place] [phone] Airam Romero MD [address] [place], [place] [phone] CT ABD/PELVIS ORDER Social History Tobacco Use Types Packs/Day Years [...] encounter Miscellaneous Notes * Telephone Encounter - Hilary Boo - 05/30/2025 10:40 AM EST Incoming fax from [facility], ct abdomen/pelvis order should be cpt code [id number], abdomen/pelvis with contrast. oral and iv. documented in this encounter Plan of Treatment Upcoming Encounters Date Type Department Care Team (Late st Contact Info) Description 06/20/2025 9:30 AM EST Medication Management [facility] [address] [place] [address] Shruthi Han, PharmD [address] [place] [address] 08/23/2025 1:15 PM EDT Office Visit [facility] [address] [place] [address] Airam Romero MD [address] [place] [address] documented as of this encounter Goals Goal [...] documented as of this encounter Care Teams Customer Success Director Relationship Specialty Start Date End Date Airam Romero MD [address] [place] [address] PCP - General Internal Medicine 12/16/22 Fred Dotson FNP [address] [place] [address] Nurse Practitioner Family Medicine 05/10/23 documented as of this encounter
--- OUTSIDE RECORDS SUMMARY | 2025-06-04 10:10 | XMS_ITS | Encounter Summary ---
Author Organization [employer] Address [address] [facility] [address] 7t [place] [address] Care Team Providers Care Supply And Distribution Manager Name Role Phone Airam Romero MD Primary Care Pro vider Fred Dotson Unavailable Unavailable Encounter Details Date Type Department Care Team (Late Contact Info) Description 11/19/2022 Orders Only [facility] [address] [place] [address] [phone] Josue Cintron MD [address] [place] [address] Gastroesophageal reflux disease without esophagitis Social History [...] Department Care Team (Late Contact Info) Description 06/20/2025 9:30 AM EST Medication Management [facility] [address] [place] [address] Shruthi Han, RylieD [address] [place] [address] 08/23/2025 1:15 PM EDT Office Visit [facility] [address] [place] [address] Airam Romero MD [address] [place] [address] documented as of this encounter Visit Diagnoses Diagnosis Gastroesophageal reflux disease without esophagitis Esophageal reflux documented in this encounter Care Teams Supply And Distribution Manager Relationship Specialty Start Date End Date Airam Romero MD [address] [place] [address] PCP - General Internal Medicine 12/16/22 Fred Dotson FNP [address] [place] [address] Nurse Practitioner Family Medicine 05/10/23 documented as of this encounter
--- OUTSIDE RECORDS SUMMARY | 2025-06-04 10:10 | XMS_ITS | Encounter Summary ---
Author Organization [employer] Address 75 [facility] 7t [place] [address] Care Team Providers Care Census Clerk Name Role Phone Airam Romero MD Primary Care Pro vider Fred Dotson Unavailable Unavailable Reason for Visit * Reason Comments Med Refill Encounter Details Date Type Department Care Team ([facility] Contact Info) Description 11/16/[address] [facility] [address] [place], [place] [phone] Consuelo Kelly FNP Hx of fracture of [...] AM EST Medication Management [facility] [address] [place] [address] PierShruthi Ho PharmD [address] [place] [address] 08/23/2025 1:15 PM EDT Office Visit [facility] [address] [place] [address] [phone] Airam Romero MD 230 [place], [place] [phone] documented as of this encounter Visit Diagnoses Diagnosis Hx of fracture of lower leg documented in this encounter Care Teams Census Clerk Relationship Specialty Start Date End Date Airam Romero MD [address] [place] [address] [phone] PCP - General Internal Medicine 12/16/22 Fred Dotson FNP [address] [place] [address] Nurse Practitioner Family Medicine 05/10/23 documented as of this encounter
--- OUTSIDE RECORDS SUMMARY | 2025-06-04 10:10 | XMS_ITS | Encounter Summary ---
Author Organization [employer] Address 75 [facility] 7t [place] [address] Care Team Providers Care Cigar Packing Examiner Name Role Phone Airam Romero MD Primary Care Pro vider Fred Dotson Unavailable Unavailable Reason for Visit * Reason Onset Date Comments Med Refill 05/30/2025 Encounter Details Date Type Department Care Team (Late st Contact Info) Description 05/30/2025 Refill [facility] [address] [place] [address] Airam Romero MD [address] [place] [address] Social History Tobacco Use Types Packs/Day Years [...] the past 12 months, has t he [employer] gas, oil or water company threatened to [...] encounter Miscellaneous Notes * Telephone Encounter - Norma Fong LPN - 05/30/2025 12:22 PM EST Added frequency to script,please review documented in this encounter Plan of Treatment Upcoming Encounters Date Type Department Care Team (Late st Contact Info) Description 06/20/2025 9:30 AM EST Medication Management [facility] [address] [place] [address] Shruthi Han, PharmD [address] [place] [address] 08/23/2025 1:15 PM EDT Office Visit [facility] [address] [place] [address] Airam Romero MD [address] [place] [address] documented as of this encounter Goals Goal [...] documented as of this encounter Care Teams Cigar Packing Examiner Relationship Specialty Start Date End Date Airam Romero MD [address] [place] [address] PCP - General Internal Medicine 12/16/22 Fred Dotson FNP [address] [place] [address] Nurse Practitioner Family Medicine 05/10/23 documented as of this encounter
--- OUTSIDE RECORDS SUMMARY | 2025-06-04 10:10 | XMS_ITS | Encounter Summary ---
Author Organization [employer] Address 75 [facility] 7t [place] [address] Care Team Providers Care Pediatric Oncologist Name Role Phone Airam Romero MD Primary Care Pro vider Fred Dotson Unavailable Unavailable Reason for Referral * Imaging (Routine) - Authorized Specialty Diagnoses / Procedures Referred By Contac t Referred To Contact Radiology Diagnoses Weight loss Abnormal CT of the abdomen Procedures CT Abdomen Pelvis w/ Contrast Airam Romero MD [address] [place] [address] Phone: tel: fax: [address] [address] Phone: tel: fax: Referral ID Status Reason Start Date Expiration Date V isits Requested Visits Authorized [id number] Authorized 05/30/2025 05/30/2026 1 1 Encounter Details Date Type Department Care Team (Late st Contact Info) Description 05/30/2025 Orders Only [facility] [address] [place], [place] [phone] Airam Romero MD [address] [place], [place] [phone] Weight loss (Primary Dx); Abnormal CT of the abdomen Social History Tobacco Use Types Packs/Day Years [...] Description 06/20/2025 9:30 AM EST Medication Management [address] [address] Shruthi Han RylieD [address] [place] [address] 08/23/2025 1:15 PM EDT Office Visit [facility] [address] [place] [address] Airam Romero MD [address] [place] [address] Scheduled Orders Name Type Priority Associated Diagnoses Orde r Schedule CT Abdomen Pelvis w/ Contrast Imaging Routine Weight loss Abnormal CT of the abdomen Expected: 05/30/2025, Expires: 05/30/2026 documented as of this encounter Goals Goal Patient Goal Type Associated Problems Recent Progress Patient-Stated? Author Patient will adhere to medication regimen General No Roys Nunes Keep your medical appointments Lifestyle No Rosy Nunes documented as of this encounter Visit Diagnoses Diagnosis Weight loss- Primary Loss of weight Abnormal CT of the abdomen Nonspecific (abnormal) findings on radiological and other examination of abdominal area, including retroperitoneum documented in this encounter Additional Health Concerns Assessment Noted Time PHQ-9 Depression Total Score: 25 025 4:23 PM EST documented as of this encounter Care Teams Pediatric Oncologist Relationship Specialty Start Date End Date Airam Romero MD [address] [place] [address] PCP - General Internal Medicine 12/16/22 Fred Dotson FNP [address] [place] [address] Nurse Practitioner Family Medicine 05/10/23 documented as of this encounter
--- OUTSIDE RECORDS SUMMARY | 2025-06-04 10:10 | XMS_ITS | Encounter Summary ---
Author Organization [employer] Address 75 [facility] 7t [place] [address] Care Team Providers Care Plexiglas Former Name Role Phone Airam Romero MD Primary Care Pro vider Fred Dotson Unavailable Unavailable Reason for Visit * Reason Comments Med Refill Encounter Details Date Type Department Care Team (Late st Contact Info) Description 05/04/2023 Refill [facility] 230 [place] [address] Fred Dotson FNP Social History Tobacco Use [...] Medication Management [facility] [address] [place] [address] Shruthi Han, PharmD [address] [place] [address] 08/23/2025 1:15 PM EDT Office Visit [facility] [address] [place] [address] Airam Romero MD [address] [place] [address] documented as of this encounter Goals Goal [...] documented as of this encounter Care Teams Plexiglas Former Relationship Specialty Start Date End Date Airam Romero MD [address] [place] [address] PCP - General Internal Medicine 12/16/22 Fred Dotson FNP [address] [place] [address] Nurse Practitioner Family Medicine 05/10/23 documented as of this encounter
--- OUTSIDE RECORDS SUMMARY | 2025-06-04 10:10 | XMS_ITS | Encounter Summary ---
Author Organization [employer] Address 75 [facility] 7t [place] [address] Care Team Providers Care Accountant Supervisor Name Role Phone Airam Romero MD Primary Care Pro vider Fred Dotson Unavailable Unavailable Reason for Visit * Reason Comments Med Refill Encounter Details Date Type Department Care Team (Late st Contact Info) Description 10/02/2023 Refill [facility] [address] [place], [place] [phone] Airam Greer MD [address] [place] [address] Hx of fracture of lower leg Social [...] Description 06/20/2025 9:30 AM EST Medication Management [facility] [address] [place] [address] Shruthi Han, PharmD [address] [place] [address] 08/23/2025 1:15 PM EDT Office Visit [address] [address] Airam Romero MD [address] [place] [address] documented as of this encounter Goals Goal [...] documented as of this encounter Care Teams Accountant Supervisor Relationship Specialty Start Date End Date Airam Romero MD [address] [place] [address] PCP - General Internal Medicine 12/16/22 Fred Dotson FNP [address] [place] [address] Nurse Practitioner Family Medicine 05/10/23 documented as of this encounter
--- OUTSIDE RECORDS SUMMARY | 2025-06-04 10:10 | XMS_ITS | Encounter Summary ---
Author Organization [employer] Address 75 [facility] 7t [place] [address] Care Team Providers Care Shingle Trimmer Name Role Phone Airam Romero MD Primary Care Pro vider Fred Dotson Unavailable Unavailable Reason for Visit * Reason Comments Med Refill Encounter Details Date Type Department Care Team (Late st Contact Info) Description 11/17/2023 Refill [facility] [address] [place] [address] Fred Dotson FNP Social History Tobacco Use [...] Description 06/20/2025 9:30 AM EST Medication Management [facility] [address] [place] [address] Shruthi Han, PharmD [address] [place] [address] 08/23/2025 1:15 PM EDT Office Visit [facility] [address] [place] [address] Airam Romero MD [address] [place] [phone] documented as of this encounter Goals Goal [...] documented as of this encounter Care Teams Shingle Trimmer Relationship Specialty Start Date End Date Airam Romero MD [address] [place] [address] PCP - General Internal Medicine 12/16/22 Fred Dotson FNP [address] [place] [address] Nurse Practitioner Family Medicine 05/10/23 documented as of this encounter
--- OUTSIDE RECORDS SUMMARY | 2025-06-04 10:10 | XMS_ITS | Encounter Summary ---
Author Organization [employer] Address 75 [facility] 7t [place] [address] Care Team Providers Care Civil Engineering Intern Name Role Phone Airam Romero MD Primary Care Pro vider Fred Dotson Unavailable Unavailable Reason for Visit * Reason Onset Date Comments [facility]NA Referral 05/29/2025 Encounter Details Date Type Department Care Team (Late st Contact Info) Description 05/29/2025 Telephone [facility] [address] [place], [place] [phone] Mariola Arteaga, RN [address] [place] [address] VNA Referral Social History Tobacco Use Types [...] encounter Miscellaneous Notes * Telephone Encounter - Luana Tidwell RN - 05/31/2025 4:13 PM EST Pending [facility] review. * Telephone Encounter - Mariola Arteaga RN [...] Description 06/20/2025 9:30 AM EST Medication Management [facility] [address] [place] [address] Shruthi Han, PharmD [address] [place], [place] [phone] 08/23/2025 1:15 PM EDT Office Visit [facility] [address] [place], [place] [phone] Airam Romero MD [address] [place] [address] documented as of this encounter Goals Goal [...] documented as of this encounter Care Teams Civil Engineering Intern Relationship Specialty Start Date End Date Airam Romero MD [address] [place] [address] PCP - General Internal Medicine 12/16/22 Fred Dotson FNP [address] [place] [address] Nurse Practitioner Family Medicine 05/10/23 documented as of this encounter
--- OUTSIDE RECORDS SUMMARY | 2025-06-04 10:10 | XMS_ITS | Encounter Summary ---
Author Organization [employer] Address 75 [facility] 7t [place] [address] Care Team Providers Care Development Specialist Name Role Phone Airam Romero MD Primary Care Pro vider Fred Dotson Unavailable Unavailable Reason for Visit * Reason Onset Date Comments Call Back Request 04/26/2023 Encounter Details Date Type Department Care Team ([facility] st Contact Info) Description 04/26/2023 Telephone [facility] [address] [place], [place] [phone] Airam Romero MD [address] [place] [address] Call Back Request Social History Tobacco Use [...] tomorrow (04/27) Please contact [facility] at [phone] documented in this encounter Plan of Treatment Upcoming Encounters Date Type Department Care Team (Late st Contact Info) Description 06/20/2025 9:30 AM EST Medication Management [address] [address] Shruthi Han, PharmD [address] [place] [address] 08/23/2025 1:15 PM EDT Office Visit [facility] [address] [place] [address] Airam Romero MD [address] [place] [address] documented as of this encounter Goals Goal [...] documented as of this encounter Care Teams Development Specialist Relationship Specialty Start Date End Date Airam Romero MD [address] [place] [address] PCP - General Internal Medicine 12/16/22 Fred Dotson FNP [address] [place] [address] Nurse Practitioner Family Medicine 05/10/23 documented as of this encounter
--- OUTSIDE RECORDS SUMMARY | 2025-06-04 10:10 | XMS_ITS | Encounter Summary ---
Author Organization [employer] Address [address] [facility] 7 [place] [address] Care Team Providers Care Director Of Strategic Alliances Name Role Phone Airam Romero MD Primary Care Pro vider Fred Dotson Unavailable Unavailable Reason for Visit * Reason Comments Med Refill Encounter Details Date Type Department Care Team (Late st Contact Info) Description 04/26/2023 Refill [facility] [address] [place], [place] [phone] Airam Romero MD [address] [place] [address] Social History Tobacco Use Types Packs/Day Years [...] Description 06/20/2025 9:30 AM EST Medication Management [facility] [address] [place] [phone] Shruthi Han, PharmD [address] [place] [address] 08/23/2025 1:15 PM EDT Office Visit [facility] [address] [place] [phone] Airam Romero MD [address] [place] [address] documented as of this encounter Goals Goal [...] as of this encounter Care Teams Director Of Strategic Alliances Relationship Specialty Start Date End Date Airam Romero MD [address] [place] [address] PCP - General Internal Medicine 12/16/22 Fred Dotson FNP [address] [place] [address] Nurse Practitioner Family Medicine 05/10/23 documented as of this encounter
--- OUTSIDE RECORDS SUMMARY | 2025-06-04 10:10 | XMS_ITS | Patient Health Record ---
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) Added On:2013 Active confirmed Plan Of Treatment Pending Test Test Name Order Date RPR ([id number]) 08/08/2013 HBsAg Screen ([id number]) 08/08/2013 HIV 1/0/2 ANTIBODY W/ REFLEX TO NUCLEIC ACID TESTING([id number]) 08/08/2013 HCV Ab w/Rflx to RIBA ([id number]) 014 HSV 1 and 2-Specific Ab, IgG ([id number]) 08/08/2013 HSV 1 and 2 IgM Abs, Indirect ([id number]) 08/08/2013 Insurance Providers Payer Name Payer Address Payer Phone Subscriber Number Group Number Insured Name Patient Relationship to Insured Coverage Start Date Coverage End Date [id number] [address] [address] [place], [place] [id number] Cristel Cobian Self - patient is the insured 5 0 Medical (General) History Medical History History ICD Code ASTHMA THYROID DYSFUNCTION DEPRESSION Surgical History Surgery Date(Month/Year) cholecystectomy tubal ligation
--- OUTSIDE RECORDS SUMMARY | 2025-06-04 10:10 | XMS_ITS | Encounter Summary ---
Author Organization [employer] Address [address] [facility] 7t [place] [address] Care Team Providers Care Technical Maintenance Technician Name Role Phone Airam Romero MD Primary Care Pro vider Fred Dotson Unavailable Unavailable Reason for Visit * Reason Comments Med Refill Encounter Details Date Type Department Care Team (Late st Contact Info) Description 08/11/2023 Refill [facility] [address] [place] [address] Fred Dotson FNP Social History Tobacco Use [...] Medication Management [facility] [address] [place] [address] Shruthi Han, PharmD [address] [place] [address] 08/23/2025 1:15 PM EDT Office Visit [facility] [address] [place] [address] Airam Romero MD [address] [place] [address] documented as of this encounter Goals Goal [...] documented as of this encounter Care Teams Technical Maintenance Technician Relationship Specialty Start Date End Date Airam Romero MD [address] [place] [phone] PCP - General Internal Medicine 12/16/22 Fred Dotson FNP [address] [place] [address] Nurse Practitioner Family Medicine 05/10/23 documented as of this encounter
--- OUTSIDE RECORDS SUMMARY | 2025-06-04 10:10 | XMS_ITS | Encounter Summary ---
Author Organization [employer] Address [address] [facility] 7t [place] [address] Care Team Providers Care Cable Television Program Director Name Role Phone Airam Romero MD Primary Care Pro vider Fred Dotson Unavailable Unavailable Reason for Visit * Reason Comments Med Refill Encounter Details Date Type Department Care Team (Late st Contact Info) Description 11/10/2023 Refill [facility] [address] [place] [address] Fred Dotson FNP Social History Tobacco Use [...] Description 06/20/2025 9:30 AM EST Medication Management [facility] [address] [place] [phone] Shruthi Han, PharmD [address] [place] [address] 08/23/2025 1:15 PM EDT Office Visit [facility] [address] [place] [address] Airam Romero MD [address] [place] [address] documented as of this encounter Goals Goal [...] documented as of this encounter Care Teams Cable Television Program Director Relationship Specialty Start Date End Date Airam Romero MD [address] [place] [phone] PCP - General Internal Medicine 12/16/22 Fred Dotson FNP [address] [place] [address] Nurse Practitioner Family Medicine 05/10/23 documented as of this encounter
--- OUTSIDE RECORDS SUMMARY | 2025-06-04 10:10 | XMS_ITS | Encounter Summary ---
Author Organization [employer] Address [address] [facility] 7t [place] [address] Care Team Providers Care Senior Systems Administrator Name Role Phone Airam Romero MD Primary Care Pro vider Fred Dotson Unavailable Unavailable Reason for Visit * Reason Comments Med Refill Encounter Details Date Type Department Care Team (Late st Contact Info) Description 07/14/2023 Refill [facility] [address] [place] [address] Fred Dotson FNP Hx of fracture of [...] Description 06/20/2025 9:30 AM EST Medication Management [facility] [address] [place] [address] Shruthi Han, PharmD [address] [place] [address] 08/23/2025 1:15 PM EDT Office Visit [address] [address] Airam Romero MD [address] [place] [address] documented as of this encounter Goals Goal [...] documented as of this encounter Care Teams Senior Systems Administrator Relationship Specialty Start Date End Date Airam Romero MD [address] [place] [phone] PCP - General Internal Medicine 12/16/22 Fred Dotson FNP [address] [place] [address] Nurse Practitioner Family Medicine 05/10/23 documented as of this encounter
[2025-06-04] MEDS: iohexoL 350 MG/ML 100 ML INFUS..BTL 85 ML IV (11:43)
[2025-06-04] MEDS: Barium Sulfate Oral (Vanilla) 450 ML ORAL.SUSP 900 ML PO (11:44)
== END 2025-06-04 09:11 | disposition home or self-care (01) ==
LOC: HO.CT 09:10
PROVIDERS: PCP Student in an Organized Health Care Education/Training Program; Visit Provider Student in an Organized Health Care Education/Training Program
DX: R05.3 Chronic cough (principal); R63.4 Abnormal weight loss; R93.5 Abnormal findings on diagnostic imaging of other abdominal regions, including retroperitoneum; F17.200 Nicotine dependence, unspecified, uncomplicated
CPT/HCPCS: 71260; 74177; Q9967

== ENCOUNTER → 2025-06-04 09:14 | Outpatient (BNV) | payer MEDICAID, SELFPAY | PROVIDERS: PCP Student in an Organized Health Care Education/Training Program; Visit Provider Radiology Diagnostic Radiology | DX: R63.4 Abnormal weight loss (principal); R05.3 Chronic cough; F17.210 Nicotine dependence, cigarettes, uncomplicated | CPT/HCPCS: 71260; 74177 ==